=== PATIENT | female | born 1985 | race Caucasian/White ===

== ENCOUNTER 2016-08-14 08:20 | Emergency (ER) | payer BC ==
[2016-08-14 08:49] VITALS: BP 118/74
--- NOTE | 2016-08-14 11:34 | UC ---
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 Hx Last Menstrual Period: 07/28/16 Onset/Duration: Sudden Onset, Lasting Days, Still Present Severity Currently: Severe Severity Initially: Moderate Associated Signs & Symptoms: Positive: Fever, F/C, Myalgia, Cough, Sore Throat Related Hx: Possible Flu/Infectious Exposure - CHILD - Allergy/Home Medications Allergies/Adverse Reactions: Allergies Allergy/AdvReac Type Severity Reaction Status Date / Time Iodinated Contrast Media Allergy Intermediate Difficulty Verified 06/05/16 07:58 [CONTRAST DYE] Breathing Home Medications: Home Medications Acetaminophen TAB* [Tylenol TAB*] 2 tab PO 08/14/16 [History] Dayquil Severe Flu And Cold 08/14/16 [History] PMH/Surg Hx/FS Hx/Imm Hx Previously Healthy: Yes Endocrine History Of: Denies: Diabetes, Thyroid Disease Cardiovascular History Of: Denies: Cardiac Disorders, Hypertension, Pacemaker/ICD, Deep Vein Thrombosis Respiratory History Of: Reports: Bronchitis - HX OF Denies: COPD, Asthma GI/ History Of: Denies: Gastroesophageal Reflux, Renal Disease Neurological History Of: Denies: CVA, Dementia, Seizures Psychological History Of: Reports: Anxiety - CONTROL WITH MEDS, Depression - CONTROL WITH MEDS Cancer History Of: Denies: Breast Cancer Other History Of: Negative For: Anticoagulant Therapy - Surgical History Surgical History: Yes Surgery Procedure, Year, and Place: 2004 & 2005 LEFT KNEE ARTHROSCOPY, [place]. 2009 LAPAROSCOPY APPENDECTOMY, [place]. 2010 DIAGNOSTIC LAPAROSCOPY FOR BILATERAL OVARIAN CYST, [place] X 2. 2011 DIAGNOSTIC LAPAROSCOPY WITH RIGHT SALPINGECTOMY AND OOPHORECTOMY, [place] TUBAL LIGATION - Lt SIDE - Family History Known Family History: Positive: None, Hypertension, Other - sister with migraines - Social History Occupation: Employed Full-time Lives: With Family Alcohol Use: Occasionally Alcohol Amount: 2-3 TIMES PER WEEK Substance Use Type: None Smoking Status (MU): Never Smoked Tobacco - Immunization History Most Recent Influenza Vaccination: FALL 2015 Review of Systems Constitutional: Fever, Chills, Fatigue Skin: Negative Eyes: Negative ENT: Nasal Discharge Respiratory: Cough Cardiovascular: Negative Gastrointestinal: Negative Genitourinary: Negative Motor: Negative Neurovascular: Negative Musculoskeletal: Myalgia Neurological: Negative Psychological: Negative All Other Systems Reviewed And Are Negative: Yes Physical Exam Triage Information Reviewed: Yes Appearance: Well-Appearing, No Pain Distress, Well-Nourished Vital Signs: Initial Vital Signs Temp 97.5 F 08/14/16 08:29 Pulse 114 08/14/16 08:29 Resp 16 08/14/16 08:29 BP 118/74 08/14/16 08:29 Pulse Ox 96 08/14/16 08:29 Vital Signs Reviewed: Yes Eye Exam: Normal Eyes: Positive: Conjunctiva Clear ENT Exam: Normal ENT: Positive: Normal ENT inspection, Hearing grossly normal, Pharynx normal, TMs normal Dental Exam: Normal Neck exam: Normal Neck: Positive: Supple, Nontender, No Lymphadenopathy Respiratory Exam: Normal Respiratory: Positive: Chest non-tender, Lungs clear, Normal breath sounds, No respiratory distress, No accessory muscle use Cardiovascular Exam: Normal Cardiovascular: Positive: RRR, No Murmur, Pulses Normal, Brisk Capillary Refill Abdominal Exam: Normal Musculoskeletal Exam: Normal Musculoskeletal: Positive: Strength Intact, ROM Intact Neurological Exam: Normal Psychological Exam: Normal Psychological: Positive: Normal Response To Family Skin Exam: Normal Flu Course/Dx - Differential Dx/Diagnosis Differential Diagnosis/HQI/PQRI: Influenza, Upper Respiratory Infection Provider Diagnoses: INFLUENZA A Discharge - Discharge Plan Condition: Stable Disposition: HOME Prescriptions: Oseltamivir CAP* [Tamiflu CAP*] 75 mg PO BID #10 cap Patient Education Materials: Influenza (ED) Forms: *Work Release Referrals: Neema Whitt NP [Primary Care Provider] -
== END 2016-08-14 12:05 | disposition home or self-care (01) ==
LOC: UCEAST 08:20
DX: J09.X2 Influenza due to identified novel influenza A virus with other respiratory manifestations (principal); F41.9 Anxiety disorder, unspecified; F33.8 Other recurrent depressive disorders; Z91.041 Radiographic dye allergy status
CPT/HCPCS: 87502; 99212; G0463

== ENCOUNTER 2017-01-18 13:50 | Emergency (ER) | payer BC ==
[2017-01-18] MEDS ORDERED: HYDROmorphone* 1 MG/ML 1 ML SYR IV ONE ×2 (14:25→16:45)
[2017-01-18] MEDS ORDERED: NS 0.9% 1000 ML* 1,000 ML IV ONE (14:25)
[2017-01-18] MEDS ORDERED: Ondansetron INJ* 2 MG/ML VIAL IV ONE (14:25)
[2017-01-18 15:13] LABS: Add Diff/Slide Review? Slide Review Added; Comments Flag Yes; Hematocrit 43 % (35-47); Hemoglobin 14.3 g/dl (12.0-16.0); Mean Corpuscular HGB Conc 33 g/dl (31-36); Mean Corpuscular Hemoglobin 30 pg (27-31); Mean Corpuscular Volume 91 fL (80-97); Mean Platelet Volume 9 um3 (7.4-10.4); Red Blood Count 4.73 10^6/ul (4.0-5.4); Red Cell Distribution Width 14 % (10.5-15); White Blood Count 8.1 10^3/ul (3.5-10.8)
[2017-01-18 15:27] LABS: Albumin 4.2 g/dL (3.2-5.2); BUN/Creatinine Ratio 9.4 (8-20); C Reactive Protein 15.88 mg/L (< 5.00); Calcium 9.3 mg/dL (8.6-10.3); EGFR African American 140.1 (>60); Globulin 3.2 g/dL (2-4); Potassium 3.5 mmol/L (3.5-5.0); Total Bilirubin 0.4 mg/dL (0.2-1.0); Total Protein 7.4 g/dL (6.4-8.9)
--- NOTE | 2017-01-18 17:31 | RAD ---
INDICATION: Adnexal pelvic pain. COMPARISON: Comparison is made with a prior pelvic ultrasound from June 20, 2015. TECHNIQUE: Multiple real-time transabdominal images of the pelvis were obtained. FINDINGS: The uterus is normal in size, shape and echogenicity. The uterus measured 7.7 x 3.3 x 4.8 cm. The endometrial echo measured 0.7 cm in thickness. The patient is status post right oophorectomy. The left ovary measured 4.1 x 2.3 x 3.8 cm. There is vascular flow within the left ovary. There are couple small follicular cysts. No free intraperitoneal fluid is seen. IMPRESSION: STATUS POST RIGHT OOPHORECTOMY, OTHERWISE UNREMARKABLE STUDY.
[2017-01-18 18:44] LABS: Urine Bacteria 1+ (Absent); Urine Bilirubin Negative (Negative); Urine Glucose Negative (Negative); Urine Nitrite Negative (Negative)
[2017-01-18 19:39] VITALS: BP 122/81
[2017-01-18] MEDS ORDERED: oxyCODONE/Acetamin 5/325 MG* TAB PO ONE (19:58)
[2017-01-18] MEDS ORDERED: oxyCODONE/Acetamin 5/325 MG* TAB ONE (20:01)
--- NOTE | 2017-01-20 14:31 | ED ---
Mo Beavers Alok, scribed for Martinez Sanchez MD on 01/18/17 at 1428 . Abdominal Pain/Female - HPI Summary HPI Summary: 32F presents to the ED for lower abd pain since 3 days ago. The patient states that what initially began as back pain transitioned into the lower abd and has progressively worsening since. Pt describes her pain "like contractions" and state they worsen with movement. Pt also notes N/V. PMHx includes sciatica. PSHx includes tubal litigation and right sided salpingo-oophorectomy. Pt is allergic to Iodine Contrast. - History of Current Complaint Chief Complaint: EDAbdPain Stated Complaint: LOWER ABD PAIN/N/V-SENT BY 5 STAR Time Seen by Provider: 01/18/17 14:10 Hx Obtained From: Patient Hx Last Menstrual Period: 07/28/16 ?: No Onset/Duration: Lasting Days, Still Present Timing: Constant Severity Initially: Moderate Severity Currently: Moderate Pain Intensity: 6 Pain Scale Used: 0-10 Numeric Location: Discrete At: RLQ, Discrete At: LLQ Character: Cramping Aggravating Factor(s): Movement Alleviating Factor(s): Nothing Associated Signs and Symptoms: Positive: Nausea, Vomiting Allergies/Adverse Reactions: Allergies Allergy/AdvReac Type Severity Reaction Status Date / Time Iodinated Contrast Media Allergy Intermediate Difficulty Verified 06/05/16 07:58 [CONTRAST DYE] Breathing PMH/Surg Hx/FS Hx/Imm Hx Endocrine/Hematology History: Denies: Hx Anticoagulant Therapy, Hx Diabetes, Hx Thyroid Disease Comment Only: Other Endocrine/Hematological Disorders - endometriosis Cardiovascular History: Denies: Hx Atrial Fibrillation, Hx Congenital Heart Disease, Hx Deep Vein Thrombosis, Hx Hypertension, Hx Pacemaker/ICD Respiratory History: Denies: Hx Asthma, Hx Chronic Obstructive Pulmonary Disease (COPD) GI History: Comment Only: Other GI Disorders - colitis History: Denies: Hx Renal Disease Musculoskeletal History: Reports: Hx Back Problems - back to left leg with spasms Sensory History: Reports: Hx Contacts or Glasses - CONTACTS, INSTRUCTED TO WEAR GLASSES DAY OF SURGERY Denies: Hx Hearing Aid Opthamlomology History: Reports: Hx Contacts or Glasses - CONTACTS, INSTRUCTED TO WEAR GLASSES DAY OF SURGERY Neurological History: Denies: Hx Dementia, Hx Seizures Psychiatric History: Reports: Hx Anxiety - CONTROL WITH MEDS, Hx Depression - CONTROL WITH MEDS Denies: Hx Panic Disorder, Hx Substance Abuse - Cancer History Hx Chemotherapy: No Hx Radiation Therapy: No - Surgical History Surgery Procedure, Year, and Place: 2004 & 2006 LEFT KNEE ARTHROSCOPY, [facility] [place]. 2009 LAPAROSCOPY APPENDECTOMY, [facility] [place]. 2010 DIAGNOSTIC LAPAROSCOPY FOR BILATERAL OVARIAN CYST, [facility] [place] X 2. 2011 DIAGNOSTIC LAPAROSCOPY WITH RIGHT SALPINGECTOMY AND OOPHORECTOMY, [place] TUBAL LIGATION - Lt SIDE Hx Anesthesia Reactions: Yes - HARD TIME GOING UNDER - Immunization History Date of Tetanus Vaccine: unsure Date of Influenza Vaccine: Fall 2013 Infectious Disease History: Reports: Hx of Known/Suspected MRSA - surgical wounds Denies: Hx Clostridium Difficile, Hx Hepatitis, Hx Human Immunodeficiency Virus (HIV), Hx Shingles, Hx Tuberculosis, Hx Known/Suspected VRE, Hx Known/ Suspected VRSA, History Other Infectious Disease, Traveled Outside the in Last 30 Days - Family History Known Family History: Positive: Hypertension, Other - sister with migraines - Social History Occupation: Employed Full-time Alcohol Use: Occasionally Alcohol Amount: 2-3 TIMES PER WEEK Substance Use Type: Reports: None Smoking Status (MU): Never Smoked Tobacco Review of Systems Negative: Fever Positive: Abdominal Pain, Vomiting, Nausea All Other Systems Reviewed And Are Negative: Yes Physical Exam Triage Information Reviewed: Yes Vital Signs On Initial Exam: Initial Vitals Temp Pulse Resp BP Pulse Ox 97.3 F 117 24 153/97 99 01/18/17 13:51 01/18/17 13:51 01/18/17 13:51 01/18/17 13:51 01/18/17 13:51 Vital Signs Reviewed: Yes Appearance: Positive: Well-Appearing, No Pain Distress Skin: Positive: Warm, Skin Color Reflects Adequate Perfusion, Dry Head/Face: Positive: Normal Head/Face Inspection Eyes: Positive: Normal ENT: Positive: Normal ENT inspection Neck: Positive: Supple, Nontender Respiratory/Lung Sounds: Positive: Clear to Auscultation, Breath Sounds Present Cardiovascular: Positive: RRR Abdomen Description: Positive: Soft, Other: - Bilateral lower quadrant tenderness Bowel Sounds: Positive: Present Musculoskeletal: Positive: Normal Neurological: Positive: Normal Psychiatric: Positive: Normal, Affect/Mood Appropriate Diagnostics - Vital Signs Vital Signs Temp Pulse Resp BP Pulse Ox 01/18/17 13:51 97.3 F 117 24 153/97 99 - Laboratory Lab Results: Lab Results 01/18/17 01/18/17 01/18/17 Range/Units 14:52 14:52 14:52 WBC 8.1 (3.5-10.8) 10^3/ul RBC 4.73 (4.0-5.4) 10^6/ul Hgb 14.3 (12.0-16.0) g/dl Hct 43 (35-47) % MCV 91 (80-97) fL MCH 30 (27-31) pg MCHC 33 (31-36) g/dl RDW 14 (10.5-15) % Plt Count 301 (150-450) 10^3/ul MPV 9 (7.4-10.4) um3 Neut % (Auto) 83.1 H (38-83) % Lymph % (Auto) 10.7 L (25-47) % Hart % (Auto) 3.4 (1-9) % Eos % (Auto) 0.5 (0-6) % Baso % (Auto) 2.3 H (0-2) % Absolute Neuts (auto) 6.7 (1.5-7.7) 10^3/ul Absolute Lymphs (auto) 0.9 L (1.0-4.8) 10^3/ul Absolute Monos (auto) 0.3 (0-0.8) 10^3/ul Absolute Eos (auto) 0 (0-0.6) 10^3/ul Absolute Basos (auto) 0.2 (0-0.2) 10^3/ul Absolute Nucleated RBC 0.02 10^3/ul Nucleated RBC % 0.2 Sodium 138 (133-145) mmol/L Potassium 3.5 (3.5-5.0) mmol/L Chloride 105 (101-111) mmol/L Carbon Dioxide 23 (22-32) mmol/L Anion Gap 10 (2-11) mmol/L BUN 6 (6-24) mg/dL Creatinine 0.64 (0.51-0.95) mg/dL Est GFR ( Amer) 140.1 (>60) Est GFR (Non-Af Amer) 109.0 (>60) BUN/Creatinine Ratio 9.4 (8-20) Glucose 82 (70-100) mg/dL Lactic Acid 0.8 (0.5-2.0) mmol/L Calcium 9.3 (8.6-10.3) mg/dL Total Bilirubin 0.40 (0.2-1.0) mg/dL AST 15 (13-39) U/L ALT 19 (7-52) U/L Alkaline Phosphatase 71 (34-104) U/L C-Reactive Protein 15.88 H (< 5.00) mg/L Total Protein 7.4 (6.4-8.9) g/dL Albumin 4.2 (3.2-5.2) g/dL Globulin 3.2 (2-4) g/dL Albumin/Globulin Ratio 1.3 (1-3) Lipase 46 (11.0-82.0) U/L Beta HCG, Quant 0.82 mIU/mL Urine Color Urine Appearance Urine pH (5-9) Ur Specific [place] (1.010-1.030) Urine Protein (Negative) Urine Ketones (Negative) Urine Blood (Negative) Urine Nitrate (Negative) Urine Bilirubin (Negative) Urine Urobilinogen (Negative) Ur Leukocyte Esterase (Negative) Urine WBC (Auto) (Absent) Urine RBC (Auto) (Absent) Ur Squamous Epith Cells (Absent) Urine Bacteria (Absent) Urine Glucose (Negative) Urine Ascorbic Acid (Negative) 01/18/17 Range/Units 18:30 WBC (3.5-10.8) 10^3/ul RBC (4.0-5.4) 10^6/ul Hgb (12.0-16.0) g/dl Hct (35-47) % MCV (80-97) fL MCH (27-31) pg MCHC (31-36) g/dl RDW (10.5-15) % Plt Count (150-450) 10^3/ul MPV (7.4-10.4) um3 Neut % (Auto) (38-83) % Lymph % (Auto) (25-47) % Hart % (Auto) (1-9) % Eos % (Auto) (0-6) % Baso % (Auto) (0-2) % Absolute Neuts (auto) (1.5-7.7) 10^3/ul Absolute Lymphs (auto) (1.0-4.8) 10^3/ul Absolute Monos (auto) (0-0.8) 10^3/ul Absolute Eos (auto) (0-0.6) 10^3/ul Absolute Basos (auto) (0-0.2) 10^3/ul Absolute Nucleated RBC 10^3/ul Nucleated RBC % Sodium (133-145) mmol/L Potassium (3.5-5.0) mmol/L Chloride (101-111) mmol/L Carbon Dioxide (22-32) mmol/L Anion Gap (2-11) mmol/L BUN (6-24) mg/dL Creatinine (0.51-0.95) mg/dL Est GFR ( Amer) (>60) Est GFR (Non-Af Amer) (>60) BUN/Creatinine Ratio (8-20) Glucose (70-100) mg/dL Lactic Acid (0.5-2.0) mmol/L Calcium (8.6-10.3) mg/dL Total Bilirubin (0.2-1.0) mg/dL AST (13-39) U/L ALT (7-52) U/L Alkaline Phosphatase (34-104) U/L C-Reactive Protein (< 5.00) mg/L Total Protein (6.4-8.9) g/dL Albumin (3.2-5.2) g/dL Globulin (2-4) g/dL Albumin/Globulin Ratio (1-3) Lipase (11.0-82.0) U/L Beta HCG, Quant mIU/mL Urine Color Yellow Urine Appearance Clear Urine pH 6.0 (5-9) Ur Specific [place] 1.012 (1.010-1.030) Urine Protein Negative (Negative) Urine Ketones 1+ H (Negative) Urine Blood Negative (Negative) Urine Nitrate Negative (Negative) Urine Bilirubin Negative (Negative) Urine Urobilinogen Negative (Negative) Ur Leukocyte Esterase 1+ H (Negative) Urine WBC (Auto) Trace(0-5/hpf) (Absent) Urine RBC (Auto) Trace(0-2/hpf) (Absent) Ur Squamous Epith Cells Present H (Absent) Urine Bacteria 1+ H (Absent) Urine Glucose Negative (Negative) Urine Ascorbic Acid * H (Negative) Result Diagrams: 01/18/17 14:52 01/18/17 14:52 Lab Statement: Any lab studies that have been ordered have been reviewed, and results considered in the medical decision making process. - Additional Comments Diagnostic Additional Comments: Pelvis US - IMPRESSION: STATUS POST RIGHT OOPHORECTOMY, OTHERWISE UNREMARKABLE STUDY. Abdominal Pain Fem Course/Dx - Course Course Of Treatment: Ms. Eugene has had 3 days of low abdominal pain that started as left low back pain and migrated to the left and somewhat to the right adnexae. He CRP was very mildly bumped and she had a normal CBC. U/S was unremarkable except for the remote right oophorectomy. The etiology of her pain is still uncertain. We discussed the possibility of CT but at this point she will go home for expectant management. - Diagnoses Provider Diagnoses: Abdominal pain Discharge - Discharge Plan Condition: Stable Disposition: HOME Prescriptions: oxyCODONE/Acetamin 5/325 MG* [Percocet 5/325 TAB*] 1 tab PO Q6H PRN #20 tab MDD 4 PRN Reason: Pain Patient Education Materials: Abdominal Pain (ED) Referrals: Neema Whitt NP [Primary Care Provider] - Additional Instructions: Please follow up with your primary care provider The documentation as recorded by the Mo mak Alok accurately reflects the service I personally performed and the decisions made by me, Martinez Sanchez MD.
== END 2017-01-18 19:39 | disposition home or self-care (01) ==
LOC: ED 13:50
DX: R10.9 Unspecified abdominal pain (principal); R11.2 Nausea with vomiting, unspecified
CPT/HCPCS: 36415; 76856; 80053; 81003; 81015; 83605; 83690; 84702; 85025; 86140; 87086; 96374; 96375; 99283; A9270-GY; J1170; J2405

== ENCOUNTER 2017-04-22 17:11 | Emergency (ER) | payer BC ==
[2017-04-22 17:23] VITALS: BP 110/84
--- NOTE | 2017-04-22 17:31 | UC ---
Cardiac HPI - HPI Summary HPI Summary: 32 YEAR OLD FEMALE PRESENTS WITH COMPLAINS OF SEVERE HEADACHE AND HEART PALPITATIONS AFTER TAKING SC IGG. I WILL SEND HER TO THE ER. - History of Current Complaint Chief Complaint: UCHeadache Stated Complaint: HEADACHE Time Seen by Provider: 04/22/17 17:31 Hx Obtained From: Patient Hx Last Menstrual Period: 04/05/17 Onset/Duration: Sudden Onset Initial Severity: Moderate Current Severity: Moderate - Allergy/Home Medications Allergies/Adverse Reactions: Allergies Allergy/AdvReac Type Severity Reaction Status Date / Time Iodinated Contrast Media Allergy Intermediate Difficulty Verified 04/22/17 17:23 [CONTRAST DYE] Breathing PMH/Surg Hx/FS Hx/Imm Hx Previously Healthy: Yes Other History Of: Negative For: Anticoagulant Therapy - Surgical History Surgical History: Yes Surgery Procedure, Year, and Place: 2004 & 2005 LEFT KNEE ARTHROSCOPY, [facility] [place]. 2008 LAPAROSCOPY APPENDECTOMY, [facility] [place] 2009 DIAGNOSTIC LAPAROSCOPY FOR BILATERAL OVARIAN CYST, [facility] [place] X 2. 2010 DIAGNOSTIC LAPAROSCOPY WITH RIGHT SALPINGECTOMY AND OOPHORECTOMY, [place] TUBAL LIGATION - Lt SIDE - Family History Known Family History: Positive: None, Hypertension, Other - sister with migraines - Social History Alcohol Use: Occasionally Alcohol Amount: 2-3 TIMES PER WEEK Substance Use Type: None Smoking Status (MU): Never Smoked Tobacco - Immunization History Most Recent Influenza Vaccination: FALL 2015 Review of Systems Constitutional: Negative Skin: Negative Eyes: Negative ENT: Negative Respiratory: Negative Cardiovascular: Palpitations Gastrointestinal: Negative Genitourinary: Negative Motor: Negative Neurovascular: Negative Musculoskeletal: Negative Neurological: Headache Psychological: Negative All Other Systems Reviewed And Are Negative: Yes Physical Exam Triage Information Reviewed: Yes Vital Signs: Initial Vital Signs Temp 36.4 C 04/22/17 17:17 Pulse 106 04/22/17 17:17 Resp 16 04/22/17 17:17 BP 110/84 04/22/17 17:17 Pulse Ox 100 04/22/17 17:17 Eye Exam: Normal ENT Exam: Normal Dental Exam: Normal Neck exam: Normal Neck: Positive: 1 Respiratory Exam: Normal Cardiovascular: Positive: Tachycardia Abdominal Exam: Normal Musculoskeletal Exam: Normal Neurological Exam: Normal Psychological Exam: Normal Skin Exam: Normal - Clinical Impression Provider Diagnoses: HEART PALPITATIONS Discharge - Discharge Plan Condition: Stable Disposition: HOME Patient Education Materials: Palpitations (ED) Referrals: Neema Whitt NP [Primary Care Provider] - Additional Instructions: PATIENT SUGGESTED TO GO TO ER FOR HEART PALPITATIONS.
== END 2017-04-22 17:57 | disposition home or self-care (01) ==
LOC: UCEAST 17:11
DX: R00.2 Palpitations (principal); R51 Headache; Z91.041 Radiographic dye allergy status
CPT/HCPCS: 93005; 99211; G0463

== ENCOUNTER 2017-04-22 18:32 | Emergency (ER) | payer BC ==
[2017-04-22] MEDS ORDERED: Ondansetron INJ* 2 MG/ML VIAL IV ONE (21:08)
[2017-04-22] MEDS ORDERED: NS 0.9% 1000 ML* 2,000 ML IV ONE (21:13)
[2017-04-22] MEDS ORDERED: Ketorolac INJ* 30 MG/ML 1 ML VIAL IV ONE (21:31)
[2017-04-22] MEDS ORDERED: diPHENhydraMINE IV* 50 MG/ML 1 ml VIAL (BENADRYL) IV ONE (21:31)
[2017-04-22 22:44] LABS: Hematocrit 38 % (35-47); Hemoglobin 12.9 g/dl (12.0-16.0); Mean Corpuscular HGB Conc 34 g/dl (31-36); Mean Corpuscular Hemoglobin 31 pg (27-31); Mean Corpuscular Volume 90 fL (80-97); Mean Platelet Volume 9 um3 (7.4-10.4); Red Blood Count 4.22 10^6/ul (4.0-5.4); Red Cell Distribution Width 15 % (10.5-15); White Blood Count 6.9 10^3/ul (3.5-10.8)
[2017-04-22 22:56] LABS: Albumin 3.6 g/dL (3.2-5.2); BUN/Creatinine Ratio 6.3 (8-20); Calcium 8.3 mg/dL (8.6-10.3); EGFR African American 140.1 (>60); Globulin 3.1 g/dL (2-4); Potassium 3.7 mmol/L (3.5-5.0); Total Bilirubin 0.4 mg/dL (0.2-1.0); Total Protein 6.7 g/dL (6.4-8.9)
[2017-04-22 23:15] LABS: TSH (Thyroid Stimulating Horm) 3.49 mcIU/mL (0.34-5.60)
--- NOTE | 2017-04-22 23:18 | ED ---
Estefany Beavers Alfonso, scribed for Mabel Meade MD on 04/22/17 at 2054 . Complex/Multi-Sys Presentation - HPI Summary HPI Summary: This patient is a 32 year old F presenting to [facility] with a chief complaint of a migraine since 3 days ago. The patient rates the pain 8/10 in severity. Symptoms aggravated by bright lights. Symptoms alleviated by nothing. Patient reports diaphoresis, N/V, dry heaving, and palpitations. Patient denies diarrhea. She lives with her . 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 Her last infusion was 6 days ago. - History Of Current Complaint Chief Complaint: EDGeneral Time Seen by Provider: 04/22/17 20:47 Hx Obtained From: Patient Onset/Duration: Sudden Onset, Lasting Days - 3 Timing: Constant Severity Currently: Severe - 8/10 Aggravating Factor(s): nothing Alleviating Factor(s): nothing Associated Signs And Symptoms: Positive: Other - diaphoresis, N/V, dry heaving, and palpitations. Patient denies diarrhea - Allergies/Home Medications Allergies/Adverse Reactions: Allergies Allergy/AdvReac Type Severity Reaction Status Date / Time Iodinated Contrast Media Allergy Intermediate Difficulty Verified 04/22/17 17:23 [CONTRAST DYE] Breathing PMH/Surg Hx/FS Hx/Imm Hx Endocrine/Hematology History: Reports: Other Endocrine/Hematological Disorders - CVID Denies: Hx Anticoagulant Therapy, Hx Diabetes, Hx Thyroid Disease Cardiovascular History: Denies: Hx Atrial Fibrillation, Hx Congenital Heart Disease, Hx Deep Vein Thrombosis, Hx Hypertension, Hx Pacemaker/ICD Respiratory History: Denies: Hx Asthma, Hx Chronic Obstructive Pulmonary Disease (COPD) GI History: Comment Only: Other GI Disorders - colitis History: Denies: Hx Renal Disease Musculoskeletal History: Reports: Hx Back Problems - back to left leg with spasms Sensory History: Reports: Hx Contacts or Glasses - CONTACTS, INSTRUCTED TO WEAR GLASSES DAY OF SURGERY Denies: Hx Hearing Aid Opthamlomology History: Reports: Hx Contacts or Glasses - CONTACTS, INSTRUCTED TO WEAR GLASSES DAY OF SURGERY Neurological History: Denies: Hx Dementia, Hx Seizures Psychiatric History: Reports: Hx Anxiety - CONTROL WITH MEDS, Hx Depression - CONTROL WITH MEDS Denies: Hx Panic Disorder, Hx Substance Abuse - Cancer History Hx Chemotherapy: No Hx Radiation Therapy: No - Surgical History Surgery Procedure, Year, and Place: 2005 & 2006 [place] KN[place] [facility] [place] LAP[place]OSCOPY APPEN[place]OMY, [facility] [place]. 2010 DIAGNOSTIC LAPAROSCOPY FOR BILATERAL OVARIAN CYST, [facility] [place]. 2011 DIAGNOSTIC LAPAROSCOPY WITH RIGHT SALPINGECTOMY AND OOPHORECTOMY, [facility]. TUBAL LIGATION - Lt SIDE Hx Anesthesia Reactions: Yes - HARD TIME GOING UNDER - Immunization History Date of Tetanus Vaccine: unsure Date of Influenza Vaccine: Fall 2013 Infectious Disease History: No Infectious Disease History: Reports: Hx of Known/Suspected MRSA - surgical wounds Denies: Hx Clostridium Difficile, Hx Hepatitis, Hx Human Immunodeficiency Virus (HIV), Hx Shingles, Hx Tuberculosis, Hx Known/Suspected VRE, Hx Known/ Suspected VRSA, History Other Infectious Disease, Traveled Outside the [place] in Last 30 Days - Family History Known Family History: Positive: Hypertension, Other - sister with migraines - Social History Alcohol Use: Weekly Alcohol Amount: 2-3 TIMES PER WEEK Substance Use Type: Reports: None Smoking Status (MU): Never Smoked Tobacco Review of Systems Positive: Skin Diaphoresis Positive: Palpitations Positive: Vomiting, Nausea, Other - dry heaving. Negative: Diarrhea Positive: Headache - migraine All Other Systems Reviewed And Are Negative: Yes Physical Exam - Summary Physical Exam Summary: General: Well appearing, no pain distress, uncomfortable. Skin: Warm, Skin Color Reflects Adequate Perfusion, Dry Eyes: EOMI, JHON ENT: Pharynx normal, TMs normal, dry oral mucosa. Neck: Supple, nontender Respiratory: CTA, breath sounds present, no rhonchi, no wheezes, no rales Cardiovascular: RRR, no murmur, no rub, no gallop Abdomen: Soft, nontender, non-distented, no guarding, no rebound Bowel: Present Musculoskeletal: DARÍO, No edema Neuro: Sensory/motor intact, A&Ox3, CN intact 2-12 Psych: Affect/mood appropriate Triage Information Reviewed: Yes Vital Signs On Initial Exam: Initial Vitals Temp Pulse Resp BP Pulse Ox 97.3 F 102 20 123/87 99 04/22/17 18:35 04/22/17 18:35 04/22/17 18:35 04/22/17 18:35 04/22/17 18:35 Vital Signs Reviewed: Yes - [place] Coma Scale Coma Scale Total: 14 Diagnostics - Vital Signs Vital Signs Temp Pulse Resp BP Pulse Ox 04/22/17 20:19 85 18 100 04/22/17 20:16 116/82 04/22/17 18:35 97.3 F 102 20 123/87 99 - Laboratory Lab Results: Lab Results 04/22/17 04/22/17 04/22/17 Range/Units 22:00 22:00 22:00 WBC 6.9 (3.5-10.8) 10^3/ul RBC 4.22 (4.0-5.4) 10^6/ul Hgb 12.9 (12.0-16.0) g/dl Hct 38 (35-47) % MCV 90 (80-97) fL MCH 31 (27-31) pg MCHC 34 (31-36) g/dl RDW 15 (10.5-15) % Plt Count 250 (150-450) 10^3/ul MPV 9 (7.4-10.4) um3 Neut % (Auto) 71.8 (38-83) % Lymph % (Auto) 20.0 L (25-47) % [place] % (Auto) 6.7 (1-9) % Eos % (Auto) 0.6 (0-6) % Baso % (Auto) 0.9 (0-2) % Absolute Neuts (auto) 5.0 (1.5-7.7) 10^3/ul Absolute Lymphs (auto) 1.4 (1.0-4.8) 10^3/ul Absolute Monos (auto) 0.5 (0-0.8) 10^3/ul Absolute Eos (auto) 0 (0-0.6) 10^3/ul Absolute Basos (auto) 0.1 (0-0.2) 10^3/ul Absolute Nucleated RBC 0.01 10^3/ul Nucleated RBC % 0.1 Sodium 138 (133-145) mmol/L Potassium 3.7 (3.5-5.0) mmol/L Chloride 106 (101-111) mmol/L Carbon Dioxide 27 (22-32) mmol/L Anion Gap 5 (2-11) mmol/L BUN 4 L (6-24) mg/dL Creatinine 0.64 (0.51-0.95) mg/dL Est GFR ( Amer) 140.1 (>60) Est GFR (Non-Af Amer) 109.0 (>60) BUN/Creatinine Ratio 6.3 L (8-20) Glucose 82 (70-100) mg/dL Lactic Acid 0.7 (0.5-2.0) mmol/L Calcium 8.3 L (8.6-10.3) mg/dL Magnesium 2.0 (1.9-2.7) mg/dL Total Bilirubin 0.40 (0.2-1.0) mg/dL AST 13 (13-39) U/L ALT 23 (7-52) U/L Alkaline Phosphatase 54 (34-104) U/L Total Protein 6.7 (6.4-8.9) g/dL Albumin 3.6 (3.2-5.2) g/dL Globulin 3.1 (2-4) g/dL Albumin/Globulin Ratio 1.2 (1-3) TSH 3.49 (0.34-5.60) mcIU/mL Result Diagrams: 04/22/17 22:00 04/22/17 22:00 Lab Statement: Any lab studies that have been ordered have been reviewed, and results considered in the medical decision making process. - EKG 1838 Cardiac Rate: NL - BPM 85 EKG Rhythm: Sinus Rhythm EKG Interpretation: No Q waves. No ST elevation. Re-Evaluation - Re-Evaluation First Eval Re-Evaluation Time: 23:17 Change: Improved Comment: She reports feeling much better. Complex Multi-Symp Course/Dx Course Of Treatment: pt feels much better after rehydration and meds for migraine, electrolytes and ekg normal she is ok to go home - Diagnoses Provider Diagnoses: Migraine, Palpitations Discharge - Discharge Plan Condition: Stable Disposition: HOME The documentation as recorded by the Estefany mak Alfonso accurately reflects the service I personally performed and the decisions made by me, Mabel Meade MD.
[2017-04-23 00:15] VITALS: BP 104/72
== END 2017-04-23 00:15 | disposition home or self-care (01) ==
LOC: ED 18:32
DX: G43.909 Migraine, unspecified, not intractable, without status migrainosus (principal); R00.2 Palpitations; R11.2 Nausea with vomiting, unspecified; R61 Generalized hyperhidrosis; R51 Headache
CPT/HCPCS: 36415; 80053; 83605; 83735; 84443; 85025; 93005; 96374; 96375; 99283; J1200; J1885; J2405

== ENCOUNTER 2017-06-29 15:46 | Emergency (ER) | payer BC ==
[2017-06-29] MEDS ORDERED: Metoclopramide IV* 5 MG/ML 2 ML VIAL IV SLOW PU ONE (16:22)
[2017-06-29] MEDS ORDERED: Morphine INJ* 4 MG/ML 1 ML CARPUJECT IV ONE (16:22)
[2017-06-29 17:07] LABS: ABS Basophils 0.1 10^3/ul (0-0.2); ABS Eosinophils 0.1 10^3/ul (0-0.6); ABS Lymphocytes 1.7 10^3/ul (1.0-4.8); ABS Monocytes 0.4 10^3/ul (0-0.8); ABS Neutrophils 6.4 10^3/ul (1.5-7.7); ABS Nucleated RBC 0 10^3/ul; Eosinophil % 1.1 % (0-6); Hematocrit 40 % (35-47); Hemoglobin 13.9 g/dl (12.0-16.0); Lymphocyte % 20.1 % (25-47); Mean Corpuscular HGB Conc 34 g/dl (31-36); Mean Corpuscular Hemoglobin 31 pg (27-31); Mean Corpuscular Volume 90 fL (80-97); Mean Platelet Volume 9 um3 (7.4-10.4); Nucleated Red Blood Cells % 0; Platelet Count 285 10^3/ul (150-450); Red Blood Count 4.47 10^6/ul (4.0-5.4); Red Cell Distribution Width 14 % (10.5-15); White Blood Count 8.7 10^3/ul (3.5-10.8)
[2017-06-29 17:22] LABS: EGFR Non-African American 117.4 (>60)
[2017-06-29] MEDS: NS 0.9% 1000 ML* 1,000 ML IV ONE (17:31)
[2017-06-29] MEDS ORDERED: Potassium Chlor TAB* 20 MEQ TAB.ER PO ONE (17:34)
[2017-06-29] MEDS ORDERED: oxyCODONE/Acetamin 5/325 MG* TAB PO ONE (17:40)
[2017-06-29 18:20] VITALS: BP 122/80
--- NOTE | 2017-08-09 20:42 | ED ---
Devora Beavers Thomas, scribed for Vivi Turner MD on 06/29/17 at 1639 . Throat Pain/Nasal Congestion - HPI Summary HPI Summary: The patient is a 32 y/o female presenting to the ED complaining of right-sided facial pain and swelling that has been present for the last three days status post a parotid dilation that was performed by Dr. Rosenbaum three days ago. The pain is constant and is rated 6/10. The pain radiates down to her throat. The pain is aggravated by touch and is alleviated by nothing. The patient has treated the pain with acetaminophen prior to arrival. She has been eating sour candy and taking mouthwashes as directed. The patient has been on prednisone and clindamycin since the dilation. PMHx includes common variable immune deficiency. - History of Current Complaint Chief Complaint: EDGeneral Time Seen by Provider: 06/29/17 15:55 Hx Obtained From: Patient Onset/Duration: Lasting Days - 3, Still Present Severity: Moderate Associated Signs And Symptoms: Positive: Negative - negative for fever Cough: None Related History: Other (Noted In Comments) - Procedure three days ago with Dr. Rosenbaum - Allergies/Home Medications Allergies/Adverse Reactions: Allergies Allergy/AdvReac Type Severity Reaction Status Date / Time Iodinated Contrast Media Allergy Intermediate Difficulty Verified 04/22/17 17:23 [CONTRAST DYE] Breathing PMH/Surg Hx/FS Hx/Imm Hx Previously Healthy: No Endocrine/Hematology History: Reports: Other Endocrine/Hematological Disorders - CVID Denies: Hx Anticoagulant Therapy, Hx Diabetes, Hx Thyroid Disease Cardiovascular History: Denies: Hx Atrial Fibrillation, Hx Congenital Heart Disease, Hx Deep Vein Thrombosis, Hx Hypertension, Hx Pacemaker/ICD Respiratory History: Denies: Hx Asthma, Hx Chronic Obstructive Pulmonary Disease (COPD) GI History: Comment Only: Other GI Disorders - colitis History: Denies: Hx Renal Disease Musculoskeletal History: Reports: Hx Back Problems - back to left leg with spasms Sensory History: Reports: Hx Contacts or Glasses - CONTACTS, INSTRUCTED TO WEAR GLASSES DAY OF SURGERY Denies: Hx Hearing Aid Opthamlomology History: Reports: Hx Contacts or Glasses - CONTACTS, INSTRUCTED TO WEAR GLASSES DAY OF SURGERY Neurological History: Denies: Hx Dementia, Hx Seizures Psychiatric History: Reports: Hx Anxiety - CONTROL WITH MEDS, Hx Depression - CONTROL WITH MEDS Denies: Hx Panic Disorder, Hx Substance Abuse - Cancer History Hx Chemotherapy: No Hx Radiation Therapy: No - Surgical History Surgery Procedure, Year, and Place: 2005 & 2006 LEFT KN[place]COPY, [facility] [place]. [place] LAPAROSCOPY APPENDECTOMY, [facility] [place]. 2010 DIAGNOSTIC LAPAROSCOPY FOR BILATERAL OVARIAN CYST, [facility] [place]. 2011 DIAGNOSTIC LAPAROSCOPY WITH RIGHT SALPINGECTOMY AND OOPHORECTOMY, [facility]. TUBAL LIGATION - Lt SIDE Hx Anesthesia Reactions: Yes - HARD TIME GOING UNDER - Immunization History Date of Tetanus Vaccine: unsure Date of Influenza Vaccine: Fall 2013 Infectious Disease History: No Infectious Disease History: Reports: Hx of Known/Suspected MRSA - surgical wounds Denies: Hx Clostridium Difficile, Hx Hepatitis, Hx Human Immunodeficiency Virus (HIV), Hx Shingles, Hx Tuberculosis, Hx Known/Suspected VRE, Hx Known/ Suspected VRSA, History Other Infectious Disease, Traveled Outside the [place] in Last 30 Days - Family History Known Family History: Positive: Hypertension, Other - sister with migraines - Social History Alcohol Use: Weekly Alcohol Amount: 2-3 TIMES PER WEEK Substance Use Type: Reports: None Smoking Status (MU): Never Smoked Tobacco Review of Systems Negative: Fever Positive: Other - R-sided facial pain and swelling All Other Systems Reviewed And Are Negative: Yes Physical Exam - Summary Physical Exam Summary: VITAL SIGNS: Reviewed. He is tachycardic. GENERAL: Patient is a well-developed and nourished female who is lying comfortable in the stretcher. Patient is not in any acute respiratory distress. HEAD AND FACE: His face is flushed. There is mild swelling and tenderness to the left parotid. No signs of trauma. No ecchymosis, hematomas or skull depressions. EYES: PERRLA, EOMI x 2, No injected conjunctiva, no nystagmus. EARS: Hearing grossly intact. Ear canals and tympanic membranes are within normal limits. MOUTH: Oropharynx within normal limits. NECK: Supple, trachea is midline, no adenopathy, no JVD, no carotid bruit, no c- spine tenderness, neck with full ROM. CHEST: Symmetric, no tenderness at palpation LUNGS: Clear to auscultation bilaterally. No wheezing or crackles. CVS: Regular rate and rhythm, S1 and S2 present, no murmurs or gallops appreciated. ABDOMEN: Soft, non-tender. No signs of distention. No rebound no guarding, and no masses palpated. Bowel sounds are normal. EXTREMITIES: FROM in all major joints, no edema, no cyanosis or clubbing. NEURO: Alert and oriented x 3. No acute neurological deficits. Speech is normal and follows commands. SKIN: Dry and warm Triage Information Reviewed: Yes Vital Signs On Initial Exam: Initial Vitals Temp Pulse Resp BP Pulse Ox 97.4 F 89 17 126/87 100 06/29/17 15:50 06/29/17 15:50 06/29/17 15:50 06/29/17 15:50 06/29/17 15:50 Vital Signs Reviewed: Yes - [place] Coma Scale Coma Scale Total: 15 Diagnostics - Vital Signs Vital Signs Temp Pulse Resp BP Pulse Ox 06/29/17 15:50 97.4 F 89 17 126/87 100 - Laboratory Result Diagrams: 06/29/17 16:50 06/29/17 16:50 Lab Statement: Any lab studies that have been ordered have been reviewed, and results considered in the medical decision making process. Re-Evaluation - Re-Evaluation First Eval Re-Evaluation Time: 17:38 Change: Improved Comment: Her pain is improved. I will give her a script for percocet and discharge her home. EENT Course/Dx - Course Assessment/Plan: The patient is a 32 y/o female presenting to the ED complaining of right-sided facial pain and swelling that has been present for the last three days status post a parotid dilation that was performed by Dr. Rosenbaum three days ago. I spoke with Dr. Rosenbaum on the phone and he tells me that CT is not necessary. He instructs me to give pain medication and obtain labs. The patient will follow up at his office. Bloodwork was obtained. In the ED course the patient was given Reglan, Morphine, IV fluids, and potassium chloride. On re-evaluation at 17:38, the patients pain is improved and she will be discharged home. - Diagnoses Provider Diagnoses: Parotiditis - Provider Notifications Discussed Care Of Patient With: Neal Rosenbaum Time Discussed With Above Provider: 16:30 Instructed by Provider To: Other - I spoke with Dr. Rosenbaum, ENT. He tells me that no CT is necessary. He instructs me to give pain medication and obtain labs. The patient will follow up at his office. Discharge - Discharge Plan Condition: Stable Disposition: HOME Referrals: Neal Rosenbaum MD [Medical Doctor] - (Follow up with Dr. Rosenbaum at your next scheduled appointment. ) Additional Instructions: Follow up with Dr. Rosenbaum at your next scheduled appointment. The documentation as recorded by the Devora mak Thomas accurately reflects the service I personally performed and the decisions made by me, Vivi Turner MD.
== END 2017-06-29 18:18 | disposition home or self-care (01) ==
LOC: ED 15:46
DX: K11.20 Sialoadenitis, unspecified (principal)
CPT/HCPCS: 36415; 80053; 82150; 85025; 86140; 96374; 96375; 99282; J2270; J2765

== ENCOUNTER 2017-09-11 07:25 | Day surgery (SDC) | payer BC ==
--- NOTE | 2017-08-25 09:44 | HP ---
AMENDED REPORT NOW INCLUDES COSIGNER DESIGNATION - ESIGNED BEFORE ADJUSTMENT CC: Neema Whitt NP PREOPERATIVE HISTORY AND PHYSICAL: DATE OF ADMISSION: This patient is scheduled for same-day surgery admission by Dr. Toth on 09/11/17. DATE OF PREOPERATIVE HISTORY AND PHYSICAL EXAMINATION: 08/24/17. ATTENDING SURGEON: Dr. Bharti Toth * (dictated by Jemima Cordero NP) CHIEF COMPLAINT: Right breast nipple discharge. HISTORY OF PRESENT ILLNESS: The patient is a 32-year-old female, recently evaluated by Dr. Toth for right nipple discharge. The patient reports that she first noticed the nipple discharge about 3 months ago and it was associated with pain on the side of the right breast. She denies any other breast changes. The discharge is spontaneous and typically yellow in color and she has not noticed any blood. She is not sure whether it is from more than 1 duct. She has never had a breast biopsy or any radiation to the chest. She underwent mammogram and ultrasound of the breast on 08/12/17 and the results all were within normal limits. Dr. Toth has examined the patient and notes nipple discharge from the right breast from 2 ducts, 1 duct produces milky discharge and the other produces clear discharge. Therefore, Dr. Toth has recommended terminal duct excision of the right breast as a same-day surgery procedure and has discussed the nature of the surgical procedure, the rationale for the procedure, the relevant risks and benefits, and today I discussed the postoperative care and recovery. The patient has had a chance to ask questions and stated that she understands the information and is satisfied with the answers given to her questions. She will sign surgical consent on the day of surgery. PAST MEDICAL HISTORY: Significant for common variable immune deficiency for which she receives weekly infusions at home and she is followed by Dr. Justo Abbasi; endometriosis. PAST SURGICAL HISTORY: Tubal ligation, 2016; diagnostic laparoscopy on 4 separate occasions; appendectomy, 2008; removal of right ovary and tube, 2011; meniscal repair to the left knee x2. MEDICATIONS: 1. Effexor 150 mg p.o. b.i.d. 2. Wellbutrin SR 150 mg p.o. daily in the morning. 3. Cuvitru 1 g/5 mL, 10 g weekly, subcutaneously typically on Fridays, but she will be checking with Dr. Abbasi as to when she should administer that since her surgery is scheduled for a Thursday. 4. Imitrex up to 50 mg as needed for migraines after infusions of Cuvitru. 5. Ibuprofen 600 mg t.i.d. p.r.n. pain. ALLERGIES: IV CONTRAST caused rash and respiratory distress. REVIEW OF SYSTEMS: Constitutional: No fevers or chills or excessive fatigue or weight loss. Endocrine: No diabetes or thyroid disease. Hematologic: No easy bruising or bleeding. Breasts: As described in history of present illness. Respiratory: No dyspnea or exertion or chronic cough. Cardiovascular : No anginal chest pain or palpitations. Gastrointestinal: History of irritable bowel syndrome associated with diarrhea, no change in bowel habits. No GI bleeding. No nausea or vomiting. Genitourinary: No dysuria. Musculoskeletal: Pain in her hands and knees associated with some swelling and she does have an upcoming appointment with Dr. Spencer to rule out rheumatoid arthritis or Lupus. Neurologic: Occasional migraine headaches associated with infusions of Cuvitru, no areas of focal weakness or numbness. General: No history of deep vein thrombosis or pulmonary embolism; no history of blood transfusions; she states that she has high tolerance to anesthesia and in the past has had difficulty being put under anesthesia. FAMILY HISTORY: Mother has rheumatoid arthritis. Father has hypercholesterolemia. Maternal grandmother has a history of breast and ovarian cancer. Paternal grandmother has history of breast cancer. No known anesthesia complications, bleeding tendencies, or clotting disorders in the family. SOCIAL HISTORY: She has never been a smoker. She drinks alcohol occasionally. Her mother will be with her on the day of surgery. PHYSICAL EXAMINATION GENERAL SURVEY: The patient is a 32-year-old female, well developed, overweight , in no acute distress. VITAL SIGNS: Height 62 inches, weight 171 pounds, body mass index 31. Blood pressure 114/78, pulse 84 and regular, respiratory rate 18, temperature 97 tympanic. HEENT: Benign. NECK: Supple. No cervical lymphadenopathy. LUNGS: Breath sounds bilaterally clear and equal. HEART: Regular rate and rhythm. No murmurs or rubs appreciated. BREASTS: Symmetric. No skin dimpling or nipple retraction. No supraclavicular adenopathy. Palpation of the right breast reveals no discrete masses. There is slight tenderness in the lateral aspect of the breast and then discharge from the nipple from 2 ducts; no other obvious abnormalities in the right breast. Palpation of the left breast reveals no discrete masses. No nipple discharge with manipulation. No axillary adenopathy bilaterally. ABDOMEN: Active bowel sounds. Soft, nontender, and nondistended. No obvious masses, organomegaly, or evidence of umbilical hernia. PELVIC: Deferred. RECTAL: Deferred. EXTREMITIES: Warm without edema or skin ulceration. NEUROLOGIC: Alert and oriented x3. Steady gait. SKIN: Warm, dry, and intact. IMPRESSION: Nipple discharge, right breast. PLAN: Same-day surgery admission to Dr. Toth's service on 09/11/17, for terminal duct excision, right breast. HILDA CORDERO, MARLENI [id number]/[facility] #: [id number] KISHA
[~2017-09-11 07:25] MED LIST: Buffered Lidocaine 0.9% SYRIN* 5 ML/SYR SYRINGE INTRADERM ONE; Dexamethasone IV* 4 MG/ML 1 ML (4 MG) IV SLOW PU ONE; Famotidine IV* 10 MG/ML 2 ML (20 mg) IV ONE; Lidocaine 2% PF * 5 ML VIAL ONE; Midazolam* 1 MG/ML 10 ML VIAL (10 MG) ONE; Propofol* 10 MG/ML 20 ML BTL IV PUSH ONE; fentaNYL* 50 MCG/ML 2 ML VIAL (100 MCG VIAL) ONE
[2017-09-11] MEDS ORDERED: Dexamethasone IV* 4 MG/ML 1 ML (4 MG) ONE (07:28)
[2017-09-11] MEDS ORDERED: ceFAZolin 2 GM in 100 MLS NS (*) BAG IVPB ONE (07:28)
[2017-09-11] MEDS ORDERED: Famotidine IV* 10 MG/ML 2 ML (20 mg) ONE (07:28)
[2017-09-11] MEDS ORDERED: Buffered Lidocaine 0.9% SYRIN* 5 ML/SYR SYRINGE ONE (07:28)
[2017-09-11] MEDS ORDERED: diPHENhydraMINE IV* 50 MG/ML 1 ml VIAL (BENADRYL) IV PRN (08:24)
[2017-09-11] MEDS ORDERED: Ondansetron INJ* 2 MG/ML VIAL IV PRN (08:24)
[2017-09-11] MEDS ORDERED: Naloxone* 0.4 MG/ML 1 ML VIAL IV PRN (08:24)
[2017-09-11] MEDS ORDERED: Scopolamine 1.5 mg* PATCH TRANSDERM PRN (08:24)
[2017-09-11] MEDS ORDERED: HYDROmorphone INJ* 1 MG/ML CARPUJECT SYRINGE IV PRN (08:24)
[2017-09-11] MEDS ORDERED: oxyCODONE/Acetamin 5/325 MG* TAB PO PRN ×3 (08:24→10:12)
[2017-09-11] MEDS ORDERED: HYDROcodone/ACETAMIN 5-325 MG* 1 TAB PO PRN (08:24)
[2017-09-11] MEDS ORDERED: Bupivacaine 0.25% SDV* 30 ML ONE (08:55)
[2017-09-11] MEDS ORDERED: Ketorolac INJ* 30 MG/ML 1 ML VIAL ONE (09:17)
[2017-09-11] MEDS ORDERED: Ondansetron INJ* 2 MG/ML VIAL ONE (09:17)
[2017-09-11] MEDS ORDERED: Propofol* 10 MG/ML 20 ML BTL IV PUSH ONE (09:17)
[2017-09-11] MEDS ORDERED: fentaNYL* 50 MCG/ML 2 ML VIAL (100 MCG VIAL) ONE ×2 (09:20→11:01)
--- NOTE | 2017-09-11 10:11 | BRIEFOPN ---
Brief Operative Note - Surgery Procedures: Procedures INJECT/INFUSE NEC (07/19/13) KNEE ARTHROSCOPY (11/06/03) SKIN & SUBQ INCISION NEC (09/08/08) TETANUS ANTITOXIN ADMINI (09/08/08) 09/11/17 Op Note Pre-op dx: pathologic right nipple discharge Post-op dx: same Procedure: right terminal duct excision Surgeon: Navneet Asst: MANNY Massey Anesth: general SCDs: on during surgery Abx: given pre-op EBL: 2 cc Complications: none Pt. tolerated procedure well and was transferred to in a stable condition. CLFoster
[2017-09-11] MEDS ORDERED: oxyCODONE/Acetamin 5/325 MG* TAB ONE (11:01)
[2017-09-11] MEDS: fentaNYL* 50 MCG/ML 2 ML VIAL (100 MCG VIAL) IV PRN ×2 (11:03→11:15)
[2017-09-11 11:48] VITALS: BP 114/78
--- NOTE | 2017-09-12 00:40 | OP ---
CC: Neema Whitt NP; Dr. Karel Abbasi * DATE OF OPERATION: 09/11/17 - [facility] DATE OF : 89 SURGEON: Bharti Toth MD LATCHER: TEVIN Coombs student. PRE-OP DIAGNOSIS: Pathologic right nipple discharge. POST-OP DIAGNOSIS: Pathologic right nipple discharge. OPERATIVE PROCEDURE: Terminal duct excision, right breast. INDICATIONS: Ms. Eugene is a 32-year-old woman who presented to the office with pathologic nipple discharge prompting the plan for surgical intervention. DESCRIPTION OF PROCEDURE: She was brought to the operating room, placed on the OR table in a supine position and given general anesthesia. The right breast was prepped and draped in the usual sterile fashion. After infiltrating with local anesthetic, a probe was inserted into the duct producing the discharge and then after infiltrating with local anesthetic, a curvilinear incision was made in a circumareolar fashion inferiorly. Subcutaneous tissue was divided with electrocautery to create a flap of the nipple until the ducts were encountered. Individual ducts were isolated and ligated and divided until the duct with the probe within it was identified. This was grasped with clamp. The probe was removed. It was ligated on the nipple end and then using the clamps to hold on to the probe, dissection was continued with electro-cautery around the duct to remove a con of tissue around the duct. This was marked in the usual fashion with an additional double stitch marking the duct and then handed off as a specimen. Hemostasis was assured with electro-cautery. Once this was adequate, the wound was irrigated with saline and then additional local was instilled in the wound and closure was accomplished. This was done with 3-0 Polysorb in the subcutaneous layer and the skin was closed with 4-0 Surgipro in a subcuticular fashion. Steri- Strips and a dry sterile dressing were applied. All sponge and instrument counts were correct. The patient tolerated the procedure well and was transferred to Recovery in stable condition. [id number]/[facility] #: [id number] [facility] HOSPITALJonathon
[2017-09-14] MEDS ORDERED: Scopolamine PATCH Remove* 1 NOTE MISC PATCH OFF ONE (08:24)
== END 2017-09-11 11:48 | disposition home or self-care (01) ==
LOC: OR 07:25
PROVIDERS: ATTEND Surgery
DX: N64.52 Nipple discharge (principal); N60.41 Mammary duct ectasia of right breast; N64.4 Mastodynia; D83.9 Common variable immunodeficiency, unspecified; N80.9 Endometriosis, unspecified
CPT/HCPCS: 88307; A9270-GY; J1100; J1885; J2250; J2405; J2704; J3010

== ENCOUNTER 2017-10-10 11:51 | Emergency (ER) | payer BC ==
--- OUTSIDE RECORDS SUMMARY | 2017-10-10 12:08 | XMS REPORT ---
:1985 External Reference #:[id number] Author Organization [facility] Address [address] [address] Phone [phone] Care Team Providers Name Role Phone Neema Whitt NP Primary Care Physician Unavailable Payers Type Date Identification Numbers Payment Provider Subscriber Commercial Policy Number: [id number] [employer] Leonor Connelly PayID: [id number] [address] [address] [place] [address] Medigap Part B Effective: 2012 Policy Number: BS Facets Leonor Connelly [id number] Expires: 2013 PayID: [id number] [address] [place] [address] Medigap Part B Expires: 2013 Policy Number: [id number] [facility] Mary Connelly PayID: [id number] [address] [place] [address] Problems Date Description Provider Status Onset: 10/12/2014 Neck pain Biju Nolen M.D. Active Onset: 02/26/2015 Thoracic and lumbosacral neuritis Biju Nolen M.D. 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 distress, hives Medications Medication Date Status Form Strength Qnty SIG Indications Ordering Provider Sulfasalazine 10/07/ Active Tablets 500mg 45tab take one Fahad 2017 s tab by elena Spencer M.D. daily for 1 week then 1 tab twice daily ongoing Ibuprofen 05/06/ Active Tablets 600mg 90tab tid prn M25.462 Luke 2015 s pain MD Neymar Effexor XR / Active Caps ER 150mg 1 by Unknown 0000 24HR mouth twice a day Wellbutrin SR / Active Tablets ER 150mg 1 by Unknown 0000 12HR mouth every day Cuvitru / Active Solution 1GM/5ML 10 Grams Unknown 0000 subq weekly Imitrex / Active Tablets 50mg 1 by Unknown 0000 mouth as needed for severe headache and may repeat once in 2 hours Percocet 09/13/ Hx Tablets 5-325mg 14tab 1 tab by Dave Alcantara 2018 - s mouth Schwed, 10/07/ every 4 M.D. 2018 hours as needed Oxycodone-Acetami 08/24/ Hx Tablets 5-325mg 8tabs 1 tab by Jemima pascual 2018 - mouth B. 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 Take with food. Diclofenac Sodium 10/31/ Hx Tablets DR 75mg 60tab take 1 Jamesb 2016 s tablet MD Neymar twice a day with food Mustang 10/31/ Hx Tablets 5-325mg 10tab take 1 Jamesb 2016 s tab every MD Neymar 8 hours as needed for pain Mustang 05/26/ Hx Tablets 5-325mg 30tab 1 tabs by Luke 2015 - s mouth MD Neymar 10/31/ every 6 2017 hours Tramadol HCL 05/08/ Hx Tablets 50mg 20tab one Luke 2015 - s tablet MD Neymar 10/25/ every 8 2017 hours as needed for pain orally Diclofenac Sodium 05/06/ Hx Gel 1% 200gm apply 3-4 M25.462 Zaneb 2015 - times a MD Neymar 10/31/ day to 2017 right elbow and shoulder Mustang 02/26/ Hx Tablets 5-325mg 60tab 1-2 by 724.4 Biju 2014 - s mouth Callum, 09/15/ every 6 M.D. 2018 hours as needed pain Hyrocodone & 10/12/ Hx does not Biju Muscle Relaxer 2015 - known [place], name M.DEduardo 2015 & mg Darvocet-N 100 12/29/ Hx Tablets 100 40tab 1 po q4h Mark M. 2008 - s prn Zupruk, M.DEduardo 2014 Mustang 12/14/ Hx Tablets 5-325mg 40tab 1 PO Q4H Mark M. 2008 - s prn Pain Quanruk, M.DEduardo 2014 Cyclobenzaprine / Hx Tablets 10mg Unknown HCL 0000 - 2014 Bupropion HCL ER / Hx Tablets ER 150mg Unknown (XL) 0000 24HR Sertraline HCL / Hx Tablets 100mg Unknown 0000 - 2014 Effexor XR / Hx Caps ER 37.5mg 1 qid Unknown 0000 24HR Robaxin / Hx Tablets 500mg 90tab 1 by 724.4 Jonathan Bui 0000 s mouth Pollack, three M.D. times a day as needed spasm Control / Hx Unknown 0000 Amoxicillin/Clavu / Hx Tablets 875-125mg 1 by Unknown lanate Potassium 0000 mouth twice a day Medications Administered in Office Medication Date Status Form Strength Qnty SIG Indications Ordering Provider Triamcinolone 11/06/ Administered Injection Zaneb (Kenalog) 2016 MD Neymar Immunizations CPT Code Status Date Vaccine Lot # [id number] Given 03/30/2017 Influenza Virus Vaccine, Quadrivalent, Split, Preservative Free Vital Signs Date Vital Result Comment 10/07/2017 Height 62 inches 5'2" Weight 175.25 lb Heart Rate 98 /min BP Systolic Sitting 134 mmHg BP Diastolic Sitting 93 mmHg Respiratory Rate 14 /min Pain Level 6 BMI (Body Mass Index) 32.1 kg/m2 09/21/2017 Heart Rate 72 /min Respiratory Rate 16 /min Body Temperature 99.6 F 09/16/2017 Height 62 inches 5'2" Weight 171.25 lb Heart Rate 84 /min BP Systolic Sitting 106 mmHg BP Diastolic Sitting 78 mmHg Respiratory Rate 14 /min Body Temperature 98.6 F Pain Level 0 BMI (Body Mass Index) 31.3 kg/m2 08/24/2017 Height 62 inches 5'2" Weight 171.00 lb Heart Rate 84 /min BP Systolic Sitting 114 mmHg BP Diastolic Sitting 78 mmHg Respiratory Rate 18 /min Body Temperature 97.0 F BMI (Body Mass Index) 31.3 kg/m2 08/17/2017 Heart Rate 66 /min BP Systolic Sitting 122 mmHg BP Diastolic Sitting 70 mmHg Respiratory Rate 16 /min Body Temperature 97.5 F 07/28/2017 Heart Rate 78 /min BP Systolic 114 mmHg BP Diastolic 78 mmHg Respiratory Rate 18 /min Body Temperature 97.9 F 11/06/2016 Height 62 inches 5'2" Weight 179.00 lb Heart Rate 84 /min BP Systolic 132 mmHg BP Diastolic 79 mmHg Body Temperature 98.2 F Pain Level 7 BMI (Body Mass Index) 32.7 kg/m2 05/06/2016 Height 62 inches 5'2" Weight 179.00 lb Heart Rate 92 /min BP Systolic 125 mmHg BP Diastolic 81 mmHg BMI (Body Mass Index) 32.7 kg/m2 02/26/2015 Height 62 inches 5'2" Weight 159.00 lb Heart Rate 82 /min BP Systolic Sitting 122 mmHg BP Diastolic Sitting 78 mmHg Pain Level 10 back BMI (Body Mass Index) 29.1 kg/m2 10/12/2014 Height 62 inches 5'2" Weight 159.00 lb Heart Rate 72 /min BP Systolic Sitting 120 mmHg BP Diastolic Sitting 70 mmHg Pain Level 6 neck BMI (Body Mass Index) 29.1 kg/m2 Results Test Date Test Result H/L Range Note Hla B27 09/16/2017 Hla B27 Positive 1 Hla B27 Interp See Comment 2 Celiac Hla 09/16/2017 Hla-Dqa1 SEE BELOW 3 Hla-DQB1 SEE BELOW 4 Celiac Gene Pairs Present? Yes Celiac Gene Interpretation See Comment 5 Neutrophil Cytoplasmic AB 09/16/2017 C-Anca Negative Negative P-Anca Negative Negative 6 Laboratory test 09/16/2017 Lyme Disease Serology Negative Negative 7 finding Celiac Panel 09/16/2017 Tissue Transglutaminase IgA <1.2 U/mL 8 Ab Immunoglobulin A 248 mg/dL 61 - 356 Celiac Interpretation See Comment 9 Sheeba Igg AB Reflex 09/16/2017 SS-A/Ro Antibody <0.2 U 10 SS-B/La Antibody <0.2 U 11 Sm (Abbasi) IgG Antibody <0.2 U 12 U1-nRNP Antibody 0.3 U 13 Scl-70 (Scleroderma) Antibody <0.2 U 14 Norma-1 Antibody <0.2 U 15 Laboratory test finding 09/16/2017 Cyclic Citrullinated Pep Igg <15.6 U 16 Nuclear AB (Erika) By Ifa Igg <1:80 (Negative) 17 CK Isoenzymes 09/16/2017 Creatine Kinase 47 U/L 26 - 192 CK Isoenzyme Elec, Specimen See Comment 18 Laboratory test finding 09/16/2017 Rheumatoid Factor <15 IU/mL <15 19 Angiotensin Converting Enzyme 38 U/L 8 - 53 20 Laboratory test finding 09/16/2017 Erythrocyte Sed Rate 31 mm/Hr High 0- 14 C Reactive Protein 14.10 mg/L High < 5.00 21 Vitamin B12 And Folate Serum 09/16/2017 Vitamin B12 439 pg/mL 180-914 22 Folic Acid (Folate) 13.73 ng/mL >3.99 Laboratory test finding 09/16/2017 TSH (Thyroid Stim Horm) 0.60 mcIU/mL 0.34-5.60 Thyroperoxidase AB 345.93 IU/mL High <9 Laboratory test finding 09/11/2017 Surgical Pathology SEE RESULT BELOW 23 1 REFERENCE VALUE Not Applicable 2 HLA-B27 antigen was detected. Approximately 8% of the normal population carries the HLA-B27 antigen. HLA-B27 is present in approximately 89% of patients with ankylosing spondylitis, 79% of patients with Kendall's syndrome and 42% of patients with juvenile rheumatoid arthritis. However, lacking other data, it is not diagnostic for these disorders. This test does not differentiate B27 alleles. i.e. B*27:05, B*27:06, etc. ADDITIONAL INFORMATION Method: Flow Cytometry Performing Laboratory CLIA# [id number] Test Performed by: [facility] [place] [address] 3 RESULT: 01:03,03 REFERENCE VALUE Not Applicable 4 RESULT: 03:02,06:03 DQ Serologic Equivalent: 8,6 REFERENCE VALUE Not Applicable 5 These genes are permissive for celiac disease. The absence of HLA celiac permissive genes would make the presence of celiac disease unlikely. However, these genes can also be present in the normal population. ADDITIONAL INFORMATION Method: Molecular typing of HLA antigens performed using reverse SSOP and/or SSP methods, reported as serological equivalents and low to medium resolution molecular values. Performing Laboratory CLIA# [id number] Test Performed by: [facility] [place] [address] 6 Negative for cANCA and pANCA patterns by immunofluorescence. ADDITIONAL INFORMATION This test was developed and its performance characteristics determined by [facility] in a manner consistent with CLIA requirements. This test has not been cleared or approved by the U.S. Food and Drug Administration. Test Performed by: [facility] [place] [address] 7 Serologic response to B. burgdorferi infection is not detected, but cannot rule out early infection during which low or undetectable antibody levels to B. burgdorferi may be present. If clinically indicated, a new serum specimen should be submitted in 7-14 days. Test Performed by: [facility] [address] [place] [address] 8 REFERENCE VALUE <4.0 (Negative) Test Performed by: [address] [address] 9 Negative serology. Celiac disease unlikely. However, approximately 10% of patients with celiac disease are seronegative. Also, patients who are already adhering to a gluten-free diet may be seronegative. If celiac disease is highly clinically suspected, consider HLA-DQ typing. Test Performed by: [facility] - [address] [address] 10 REFERENCE VALUE <1.0 (Negative) 11 REFERENCE VALUE <1.0 (Negative) 12 REFERENCE VALUE <1.0 (Negative) 13 REFERENCE VALUE <1.0 (Negative) 14 REFERENCE VALUE <1.0 (Negative) 15 REFERENCE VALUE <1.0 (Negative) Test Performed by: [facility] [place] [address] 16 REFERENCE VALUE <20.0 (Negative) Test Performed by: [place] [address] 17 <1:80 (Negative) REFERENCE VALUE <1:80 (Negative) Test Performed by: [place] [address] 18 RESULT: If CK result is <100, isoenzyme will not be performed. Test Performed by: [place] [address] 19 Test Performed by: [place] [address] 20 Test Performed by: [place] [address] 21 Acute inflammation: >10.00 22 Normal Range 180 to 914 Indeterminate Range 145 to 180 Deficient Range <145 23 SEE RESULT BELOW Name: LEONOR CONNELLY : [address]: Bharti Toth MD Acct: [id number] Unit: [id number] AGE: 32 Location: OR Re09/11/17 SEX: F Status: ANDRE ABDUL SPEC: [id number] JUSTYNA: 09/11/17-[address] [facility] [address]: Bharti Toth MD REQ: [id number] RECD: 09/11/17 STATUS: SOUT _ ORDERED: LEVEL 5 FINAL DIAGNOSIS Breast, right, terminal duct excision: -- 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 -- Ectatic ducts contain hemorrhagic debris. -- No evidence of invasive or in situ carcinoma. PRE-OPERATIVE DIAGNOSIS Nipple discharge; long suture lateral, medium suture medium, short suture superior, double stitch almonte the duct GROSS DESCRIPTION The specimen is received in formalin labeled, Right Breast Terminal Duct Excision, Usual Markings Plus Double Stitch Almonte Duct, and consists of a 4.2 x 3.4 x 2.3 cm yellow-pink ovoid portion of fibrofatty soft tissue with four attached sutures which are designated as follows: long-lateral, short-superior, medium-medial and double-duct. The duct is located on the mid anterior surface. The cut surface consists predominantly of pearl- white to pink rubbery fibrous tissue with moderate interspersed yellow lobulated adipose tissue. The specimen is inked as follows: superior anterior-blue, inferior anterior-green , deep-black and duct-red, serially sectioned from lateral to medial and construction representative sections are submitted in cassettes A through I to include duct in cassettes D through F. Signed (signature on file) Candy Oneal MD 1932 END OF REPORT * ML=Testing performed at Main Lab DEPARTMENT OF PATHOLOGY, [address] [place] [address] Thanh Jeong M.D. Director [facility] # [id number] Procedures Date CPT Code Description Status 09/11/2017 82446 Nipple Exploration Completed 08/12/2017 Mammogram Completed 11/06/2016 08058 Inject/Drain Joint/Bursa Major Completed 11/20/2014 Mammogram Completed Encounters Type Date Location Provider CPT E/M Dx Office Visit 09/16/2017 Rhe[facility]ology Services Fahad Spencer M.D. 52739 M79.1 9:00a Of [facility] M54.5 R20.8 R68.2 Office Visit 08/17/2017 3:15p [facility] Bharti Toth 39416 N64.52 [facility] Office Visit 07/28/2017 2:30p [facility] Bharti Toth 84579 N64.52 [facility] Office Visit 05/06/2016 2:30p [facility] [place] [address] M25.462 C.MPhilippe M76.52 M22.2x2 Office Visit 02/26/2015 4:00p [facility] Biju Nolen 85942 724.4 [facility] [place] Office Visit 10/12/2014 11:30a [facility] Services Biju Nolen 35953 723.1 Of Alice Bhatt Office Visit 09/03/2012 10:30a [facility] Of Donell Sharpe 12892 845.00 Amy Bhatt Office Visit 01/03/2009 1:00p [facility]surgery Services Mark Tong 32660 719.41 Of [facility] B[facility]t Office Visit 12/14/2008 3:00p [facility] Mark Tong [address]7966 723.4 Of [facility] [place] 719.41 Plan of Care Future Appointment(s):11/04/2017 4:20 pm - Fahad Spencer M.D. 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
--- OUTSIDE RECORDS SUMMARY | 2017-10-10 12:08 | XMS REPORT ---
:1985 External Reference #:[id number] Author Organization [facility] Address [address] [address] Phone [phone] Care Team Providers Name Role Phone Neema Whitt NP Primary Care Physician Unavailable Payers Type Date Identification Numbers Payment Provider Subscriber Commercial Policy Number: [id number] [employer] Leonor Connelly PayID: [id number] [address] [address] [place] [id number] Medigap Part B Effective: 2012 Policy Number: BS Facets Leonor Connelly [id number] Expires: 2013 PayID: [id number] [address] [address] [place] [address] Medigap Part B Expires: 2013 Policy Number: [id number] [facility] Mary Connelly PayID: [id number] [address] [place] [address] Problems Date Description Provider Status Onset: 05/06/2016 Derangement of knee Luke Blackmon MD Active Onset: 05/06/2016 Patellar tendonitis uLke Blackmon MD Active Onset: 05/06/2016 Knee joint effusion Luke Blackmon MD Active Onset: 02/26/2015 Thoracic and lumbosacral neuritis Biuj Nolen M.D. Active Onset: 10/12/2014 Neck pain Biju Nolen M.D. 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 distress, hives Medications Medication Date Status Form Strength Qnty SIG Indications Ordering Provider Percocet 09/13/ Active Tablets 5-325mg 14tab 1 tab by Dave Alcantara 2017 s mouth Schwed, every 4 M.D. hours as needed Oxycodone-Acetami 08/24/ Active Tablets 5-325mg 8tabs 1 tab by Jemima pascual 2018 mouth B. 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 Take with food. Diclofenac Sodium 10/31/ Hx Tablets DR 75mg 60tab take 1 Zaneb 2016 s tablet MD Neymar twice a day with food Mineral 10/31/ Hx Tablets 5-325mg 10tab take 1 Jamesb 2016 s tab every MD Neymar 8 hours as needed for pain Mineral 05/26/ Hx Tablets 5-325mg 30tab 1 tabs by Luke 2015 mouth MD Neymar 10/31/ every 6 2017 hours Tramadol HCL 05/08/ Hx Tablets 50mg 20tab one Luke 2015 - s tablet MD Neymar 10/25/ every 8 2017 hours as needed for pain orally Diclofenac Sodium 05/06/ Hx Gel 1% 200gm apply 3-4 M25.462 Luke 2015 - times a MD Neymar 10/31/ day to 2017 right elbow and shoulder Mineral 02/26/ Hx Tablets 5-325mg 60tab 1-2 by 724.4 Biju 2014 - s mouth [place], 09/15/ every 6 M.D. 2018 hours as needed pain Hyrocodone & 10/12/ Hx does not Biju Muscle Relaxer 2015 - known [place], 02/26/ M.Sukhdev 2015 & mg Darvocet-N 100 12/29/ Hx Tablets 100 [facility] Zupruk, M.D. 2014 Mineral 12/14/ Hx Tablets 5-325mg 40tab 1 [facility]H [facility] Pain Zupruk, M.D. 2014 Cyclobenzaprine / Hx Tablets 10mg Unknown HCL 0000 - 2014 Bupropion HCL ER / Hx Tablets ER 150mg Unknown (XL) 0000 24HR Sertraline HCL / Hx Tablets 100mg Unknown 0000 - 2014 Effexor XR / Hx Caps ER 37.5mg 1 qid Unknown 0000 24HR Robaxin / Hx Tablets 500mg 90tab 1 by 724.4 Jonathan J. 0000 s mouth [place], three M.D. times a day as needed spasm Control / Hx Unknown 0000 Amoxicillin/Clavu / Hx Tablets 875-125mg 1 by Unknown lanate Potassium 0000 mouth twice a day Medications Administered in Office Medication Date Status Form Strength Qnty SIG Indications Ordering Provider Triamcinolone 11/06/ Administered Injection Zaneb (Kenalog) 2016 MD Neymar Immunizations CPT Code Status Date Vaccine Lot # [id number] Given 03/30/2017 Influenza Virus Vaccine, Quadrivalent, Split, Preservative Free Vital Signs Date Vital Result Comment 09/16/2017 Height 62 inches 5'2" Weight 171.25 [...] Test Date Test Result H/L Range Note Laboratory test 09/11/2017 Surgical Pathology SEE RESULT BELOW 1 finding 1 SEE RESULT BELOW Name: LEONOR CONNELLY : [address]: Bharti Toth MD Acct: [id number] Unit: [id number] AGE: 32 Location: OR Re09/11/17 SEX: F Status: [facility] SPEC: [id number] JUSTYNA: 09/11/17-0936 [facility] DR: Bharti Toth MD REQ: [id number] RECD: 09/11/17 STATUS: SOUT _ ORDERED: LEVEL [...] serially sectioned from lateral to medial and shared services representative sections are submitted in cassettes A through I to include duct in cassettes D through F. Signed (signature on file) Candy Oneal MD 1933 END OF REPORT * ML=Testing performed at Main Lab DEPARTMENT OF PATHOLOGY, [address] [place] [address] Thanh Jeong M.D. Director [facility] # [id number] Procedures Date CPT Code Description Status 08/12/2017 Mammogram Completed 11/06/2016 00598 Inject/Drain Joint/Bursa Major Completed 11/20/2014 Mammogram Completed Encounters Type Date Location Provider CPT E/M Dx Office Visit 08/17/2017 [place] [address] N64.52 3:15p Of [facility] Office Visit 07/28/2017 [place] [address] N64.52 2:30p Of [facility] Office Visit 05/06/2016 [place] [address] M25.462 2:30p Of Amy M76.52 M22.2x2 Office Visit 02/26/2015 4:00p Neurosurgery Services Biju Nolen 16181 724.4 Of [facility] MJena Office Visit 10/12/2014 11:30a Neurosurgery Services Biju Nolen 48694 723.1 Of Alice MJena Office Visit 09/03/2012 10:30a [facility] Of Donell Sharpe 99271 845.00 Amy Bhatt Office Visit 01/03/2009 1:00p Neurosurgery Services [place], [address] 719.41 Of [facility] Bhatt Office Visit 12/14/2008 3:00p [facility]surgery Services [place], 23[address] 723.4 Of Alice Bhatt 719.41 Plan of Care Future Appointment(s):10/07/2017 4:00 pm - Fahad Spencer M.D. at [facility] Of [facility]09/16/2017 - Fahad Spencer M.D.M35.01 Sicca syndrome with thsdzcuzigzdsqbtdyhgF89.1 OywhwlvR58.5 Low back painFollow up:Follow up in 3 weeks or sooner if tnmzlrL15.8 Other disturbances of skin sensation
--- NOTE | 2017-10-10 12:49 | ED ---
Influenza-Like Illness - History of Current Complaint Chief Complaint: EDHeadache - Allergy/Home Medications Allergies/Adverse Reactions: Allergies Allergy/AdvReac Type Severity Reaction Status Date / Time Iodinated Contrast- Oral and Allergy RESPIRATORY Verified 10/10/17 11:57 IV Dye DISTRESS AND RASH PMH/Surg Hx/FS Hx/Imm Hx Endocrine/Hematology History: Reports: Other Endocrine/Hematological Disorders - CVID Denies: Hx Anticoagulant Therapy, Hx Diabetes, Hx Thyroid Disease Cardiovascular History: Denies: Hx Atrial Fibrillation, Hx Congenital Heart Disease, Hx Deep Vein Thrombosis, Hx Hypertension, Hx Pacemaker/ICD Respiratory History: Denies: Hx Asthma, Hx Chronic Obstructive Pulmonary Disease (COPD) GI History: Reports: Hx Gastroesophageal Reflux Disease, Hx Irritable Bowel, Other GI Disorders - colitis History: Denies: Hx Renal Disease Musculoskeletal History: Reports: Hx Arthritis, Hx Back Problems - back to left leg with spasms, Hx Tendonitis - LEFT KNEE Sensory History: Reports: Hx Contacts or Glasses - CONTACTS, INSTRUCTED TO WEAR GLASSES DAY OF SURGERY Denies: Hx Hearing Aid Opthamlomology History: Reports: Hx Contacts or Glasses - CONTACTS, INSTRUCTED TO WEAR GLASSES DAY OF SURGERY Neurological History: Reports: Hx Headaches, Hx Migraine - POST INFUSIONS- PRN IMITREX Denies: Hx Dementia, Hx Seizures Psychiatric History: Reports: Hx Anxiety - CONTROL WITH MEDS, Hx Depression - CONTROL WITH MEDS Denies: Hx Panic Disorder, Hx Substance Abuse - Cancer History Hx Chemotherapy: No Hx Radiation Therapy: No - Surgical History Surgery Procedure, Year, and Place: 2004 & 2006 LEFT KNEE ARTHROSCOPY, [facility] – [place]. 2009 LAPAROSCOPY APPENDECTOMY, [facility] [place]. 2010 DIAGNOSTIC LAPAROSCOPY FOR BILATERAL OVARIAN CYST, [facility] – [place] X 2. 2011 DIAGNOSTIC LAPAROSCOPY WITH RIGHT SALPINGECTOMY AND OOPHORECTOMY, [facility]. TUBAL LIGATION - Lt SIDE Hx Anesthesia Reactions: Yes - SLOW TO GO INTO ANESTHESIA - Immunization History Date of Tetanus Vaccine: unsure Date of Influenza Vaccine: Fall 2013 Infectious Disease History: No Infectious Disease History: Reports: Hx of Known/Suspected MRSA - surgical wounds Denies: Hx Clostridium Difficile, Hx Hepatitis, Hx Human Immunodeficiency Virus (HIV), Hx Shingles, Hx Tuberculosis, Hx Known/Suspected VRE, Hx Known/ Suspected VRSA, History Other Infectious Disease, Traveled Outside the [place] in Last 30 Days - Family History Known Family History: Positive: None, Hypertension, Other - sister with migraines - Social History Alcohol Use: Weekly Alcohol Amount: 2-3 TIMES PER WEEK Substance Use Type: Reports: None Smoking Status (MU): Never Smoked Tobacco Physical Exam Vital Signs On Initial Exam: Initial Vitals Temp Pulse Resp BP Pulse Ox 98.9 F 104 20 137/89 97 10/10/17 11:57 10/10/17 11:57 10/10/17 11:57 10/10/17 11:57 10/10/17 11:57 Diagnostics - Vital Signs Vital Signs Temp Pulse Resp BP Pulse Ox 10/10/17 11:57 98.9 F 104 20 137/89 97 - Laboratory Lab Statement: Any lab studies that have been ordered have been reviewed, and results considered in the medical decision making process. Flu Symptom Course/Dx - Diagnoses Provider Diagnoses: Viral syndrome Discharge - Discharge Plan Condition: Good Disposition: HOME Prescriptions: Oseltamivir CAP* [Tamiflu CAP*] 75 mg PO BID #10 cap Referrals: Neema Whitt NP [Primary Care Provider] -
[2017-10-10] MEDS ORDERED: NS 0.9% 1000 ML* 1,000 ML IV ONE (13:42)
[2017-10-10] MEDS ORDERED: Metoclopramide IV* 5 MG/ML 2 ML VIAL IV ONE (13:42)
[2017-10-10] MEDS ORDERED: Ketorolac INJ* 30 MG/ML 1 ML VIAL IV ONE (13:42)
[2017-10-10] MEDS ORDERED: diPHENhydraMINE PO* 50 MG PO ONE (13:42)
[2017-10-10] MEDS ORDERED: diPHENhydraMINE IV* 50 MG/ML 1 ml VIAL (BENADRYL) IV ONE (13:50)
[2017-10-10 16:22] VITALS: BP 106/66
--- NOTE | 2017-10-11 15:11 | ED ---
Devora Beavers Thomas, scribed for Martinez Sanchez MD on 10/10/17 at 1413 . Headache - HPI Summary HPI Summary: The patient is a 32 year old female presenting with a headache that began today at 04:00. The pain is located in the back of her head and is described as throbbing. She took Immitrex to no relief of pain. She additionally complains of nausea, vomiting, and a stiff neck. She is on subcutaneous immunoglobulin therapy, which has given her migraines in the past. - History Of Current Complaint Chief Complaint: EDHeadache Stated Complaint: N/V/ NECK STIFFNESS Time Seen by Provider: 10/10/17 13:27 Hx Obtained From: Patient Hx Last Menstrual Period: 04/05/17 Onset/Duration: Started hours ago, Still Present Currently Pain Is: Severe Timing: Constant Character: Throbbing Location of Headache: Other: - back of head Aggravating Factor: Nothing Allevating Factors: Nothing - Immitrex did not alleviate pain Associated Signs And Symptoms: Nausea, Vomiting, Other (Noted In Comments) - Stiff neck Related History: Similar Episode/DX As: - prior migraine from immunoglobulin therapy - Allergies/Home Medications Allergies/Adverse Reactions: Allergies Allergy/AdvReac Type Severity Reaction Status Date / Time Iodinated Contrast- Oral and Allergy RESPIRATORY Verified 10/10/17 11:57 IV Dye DISTRESS AND RASH PMH/Surg Hx/FS Hx/Imm Hx Endocrine/Hematology History: Reports: Other Endocrine/Hematological Disorders - CVID Denies: Hx Anticoagulant Therapy, Hx Diabetes, Hx Thyroid Disease Cardiovascular History: Denies: Hx Atrial Fibrillation, Hx Congenital Heart Disease, Hx Deep Vein Thrombosis, Hx Hypertension, Hx Pacemaker/ICD Respiratory History: Denies: Hx Asthma, Hx Chronic Obstructive Pulmonary Disease (COPD) GI History: Reports: Hx Gastroesophageal Reflux Disease, Hx Irritable Bowel, Other GI Disorders - colitis History: Denies: Hx Renal Disease Musculoskeletal History: Reports: Hx Arthritis, Hx Back Problems - back to left leg with spasms, Hx Tendonitis - LEFT KNEE Sensory History: Reports: Hx Contacts or Glasses - CONTACTS, INSTRUCTED TO WEAR GLASSES DAY OF SURGERY Denies: Hx Hearing Aid Opthamlomology History: Reports: Hx Contacts or Glasses - CONTACTS, INSTRUCTED TO WEAR GLASSES DAY OF SURGERY Neurological History: Reports: Hx Headaches, Hx Migraine - POST INFUSIONS- PRN IMITREX Denies: Hx Dementia, Hx Seizures Psychiatric History: Reports: Hx Anxiety - CONTROL WITH MEDS, Hx Depression - CONTROL WITH MEDS Denies: Hx Panic Disorder, Hx Substance Abuse - Cancer History Hx Chemotherapy: No Hx Radiation Therapy: No - Surgical History Surgery Procedure, Year, and Place: 2004 & 2006 LEFT KNEE ARTHROSCOPY, [facility] – [place]. 2009 LAPAROSCOPY APPENDECTOMY, [facility] [place]. 2010 DIAGNOSTIC LAPAROSCOPY FOR BILATERAL OVARIAN CYST, [facility] [place] X 2. 2010 DIAGNOSTIC LAPAROSCOPY WITH RIGHT SALPINGECTOMY AND OOPHORECTOMY, [facility]. TUBAL LIGATION - Lt SIDE Hx Anesthesia Reactions: Yes - SLOW TO GO INTO ANESTHESIA - Immunization History Date of Tetanus Vaccine: unsure Date of Influenza Vaccine: Fall 2013 Infectious Disease History: No Infectious Disease History: Reports: Hx of Known/Suspected MRSA - surgical wounds Denies: Hx Clostridium Difficile, Hx Hepatitis, Hx Human Immunodeficiency Virus (HIV), Hx Shingles, Hx Tuberculosis, Hx Known/Suspected VRE, Hx Known/ Suspected VRSA, History Other Infectious Disease, Traveled Outside the [place] in Last 30 Days - Family History Known Family History: Positive: Hypertension, Other - sister with migraines - Social History Alcohol Use: Weekly Alcohol Amount: 2-3 TIMES PER WEEK Substance Use Type: Reports: None Smoking Status (MU): Never Smoked Tobacco Review of Systems Negative: Fever Positive: Vomiting, Nausea Positive: Other - Stiff neck Positive: Headache All Other Systems Reviewed And Are Negative: Yes Physical Exam - Summary Physical Exam Summary: Appearance: The patient is well-nourished in no acute distress and in no acute pain. Skin: The skin is warm and dry and skin color reflects adequate perfusion. HEENT: ~The head is normocephalic and atraumatic. The pupils are equal and reactive. The conjunctivae are clear and without drainage. ~Nares are patent and without drainage. Mouth reveals moist mucous membranes and the throat is without erythema and exudate. The external ears are intact. The ear canals are patent and without drainage. The tympanic membranes are intact. Neck: the neck is supple with full range of motion and non-tender. There are no carotid bruits. ~There is no neck vein distension. Respiratory: Chest is non-tender. ~Lungs are clear to auscultation and breath sounds are symmetrical and equal. Cardiovascular: Heart is regular rate and rhythm. ~There is no murmur or rub auscultated. ~~There is no peripheral edema and pulses are symmetrical and equal. Abdomen: The abdomen is soft and non-tender. ~There are normal bowel sounds heard in all four quadrants and there is no organomegaly palpated. Musculoskeletal: There is no back tenderness noted. ~Extremities are non-tender with full range of motion. ~There is good capillary refill. There is no peripheral edema or calf tenderness elicited. Neurological: Patient is alert and oriented to person, place and time. ~The patient has symmetrical motor strength in all four extremities. ~Cranial nerves are grossly intact. Deep tendon reflexes are symmetrical and equal in all four extremities. Psychiatric: The patient has an appropriate affect and does not exhibit any anxiety or depression. Triage Information Reviewed: Yes Vital Signs On Initial Exam: Initial Vitals Temp Pulse Resp BP Pulse Ox 98.9 F 104 20 137/89 97 10/10/17 11:57 10/10/17 11:57 10/10/17 11:57 10/10/17 11:57 10/10/17 11:57 Vital Signs Reviewed: Yes Diagnostics - Vital Signs Vital Signs Temp Pulse Resp BP Pulse Ox 10/10/17 13:03 96 97 10/10/17 13:01 130/96 10/10/17 11:57 98.9 F 104 20 137/89 97 - Laboratory Lab Statement: Any lab studies that have been ordered have been reviewed, and results considered in the medical decision making process. Headache Course/Dx - Course Course Of Treatment: Ms. Eugene presented with a migraine ALVAREZ after IV IG. This has happened many times but the ALVAREZ usually responds to immitrex. The ALVAREZ was fully releived by a 'migraine cocktail' of ketorolac, benadryl, reglan and IV NS. - Diagnoses Provider Diagnoses: Migraine Discharge - Discharge Plan Condition: Stable Disposition: HOME Patient Education Materials: Migraine Headache (ED) Referrals: Neema Whitt NP [Primary Care Provider] - 3 Days Additional Instructions: Follow up with your primary care physician in three days. Return to the emergency department for any new or worsening symptoms. The documentation as recorded by the Devora mak Thomas accurately reflects the service I personally performed and the decisions made by , Martinez Sanchez MD.
== END 2017-10-10 16:17 | disposition home or self-care (01) ==
LOC: ED 11:51
DX: G43.909 Migraine, unspecified, not intractable, without status migrainosus (principal); R11.2 Nausea with vomiting, unspecified
CPT/HCPCS: 99284; J1200; J1885; J2765

== ENCOUNTER 2017-11-13 11:08 | Day surgery (SDC) | payer BC ==
[~2017-11-13 11:08] MED LIST changes: -Buffered Lidocaine 0.9% SYRIN* 5 ML/SYR SYRINGE INTRADERM ONE; -Dexamethasone IV* 4 MG/ML 1 ML (4 MG) IV SLOW PU ONE; -Famotidine IV* 10 MG/ML 2 ML (20 mg) IV ONE; -Midazolam* 1 MG/ML 10 ML VIAL (10 MG) ONE; +Midazolam* 1 MG/ML 5 ML VIAL (5 MG) ONE; +Rocuronium* 10 MG/ML VIAL ONE
[2017-11-13] MEDS ORDERED: fentaNYL* 50 MCG/ML 2 ML VIAL (100 MCG VIAL) IV PRN (11:32)
[2017-11-13] MEDS ORDERED: Acetaminophen TAB* 325 MG PO PRN (11:32)
[2017-11-13] MEDS ORDERED: oxyCODONE/Acetamin 5/325 MG* TAB PO PRN (11:32)
[2017-11-13] MEDS ORDERED: Ketorolac INJ* 30 MG/ML 1 ML VIAL IV PRN (11:32)
[2017-11-13] MEDS ORDERED: diPHENhydraMINE IV* 50 MG/ML 1 ml VIAL (BENADRYL) IV PRN (11:32)
[2017-11-13] MEDS ORDERED: oxyCODONE TAB* 5 MG TAB PO PRN (11:32)
[2017-11-13] MEDS ORDERED: Naloxone* 0.4 MG/ML 1 ML VIAL IV PRN (11:32)
[2017-11-13] MEDS ORDERED: Scopolamine 1.5 mg* PATCH TRANSDERM PRN (11:32)
[2017-11-13] MEDS ORDERED: HYDROmorphone INJ* 1 MG/ML CARPUJECT SYRINGE IV PRN (11:32)
[2017-11-13] MEDS ORDERED: Ondansetron INJ* 2 MG/ML VIAL IV PRN (11:32)
[2017-11-13] MEDS ORDERED: Sugammadex * 200 MG/2 ML VIAL IV PUSH ONE (11:53)
[2017-11-13 15:43] VITALS: BP 115/69
--- NOTE | 2017-11-13 21:38 | PRO ---
CC: SAMIRA Vasquez GASTROENTEROLOGY PROCEDURE NOTE: DATE OF PROCEDURE: 11/13/17 REFERRING PHYSICIAN: SAMIRA Vasquez PROCEDURE: Colonoscopy to cecum and terminal ileum with random biopsies. PREOPERATIVE DIAGNOSIS: A 32-year-old female who describes issues with chronic diarrhea, intermitten t abdominal pain and rectal bleeding. She does have a family history of inflammatory bowel disease. POSTOPERATIVE DIAGNOSES: 1. Normal appearing colonic mucosa from the rectum to the cecum without evidence of mass or polyp. 2. No evidence of colitis or proctitis. Random biopsies obtained at the right colon to rule out isabel roscopic colitis. 3. Normal terminal ileum. 4. Internal hemorrhoids. PROCEDURE MEDICATIONS: Per Anesthesia. INSTRUMENT: PCF-190 Olympus variable high-definition pediatric colonoscope. DESCRIPTION OF PROCEDURE: Informed consent was obtained prior to performing this procedure. The ins trument was introduced into the anus and passed through the rectum under direct visualization. The i nstrument was then advanced up to the cecum. The cecum was confirmed by visualization of the appendi ceal orifice, ileocecal valve, and tri-folds of the cecum. The colonoscope was slowly withdrawn. The preparation was excellent. The ileocecal valve was intubated. The terminal ileum was entered for 2 0 to 30 cm and was normal in appearance without evidence of Crohn's disease. The scope was slowly wi thdrawn, the mucosa of the cecum, ascending colon, transverse colon, descending colon, sigmoid colon and rectum was normal. Random biopsies were obtained at the right colon to rule out microscopic coli tis. Internal hemorrhoids visualized in the rectum. The patient tolerated the procedure well and th ere were no complications. RECOMMENDATIONS: The patient had positive celiac gene, although negative antibody testing. She may have some degree of gluten sensitivity. I have recommended a trial of gluten free diet and the patie nt should arrange with the office to have a lactulose breath test to rule out small bowel bacterial o vergrowth. She will follow up in the office in 1 to 2 months as well. I will notify her of biopsy r esults in 1 week. [id number]/[facility] #: [id number]
--- NOTE | 2017-11-13 21:47 | PRO ---
CC: Neema Whitt NP GASTROENTEROLOGY PROCEDURE NOTE: DATE OF PROCEDURE: 11/13/17 REFERRING PHYSICIAN: Neema Whitt NP PROCEDURE: EGD with biopsies. PREOPERATIVE DIAGNOSIS: A 32-year-old female with recent onset of acid reflux symptoms as well as ch ronic issues with diarrhea, who had a positive celiac gene noted, but tested negative for celiac anti bodies. POSTOPERATIVE DIAGNOSES: 1. Mild distal esophagitis with jagged Z line, biopsies obtained to rule o ut short segment Nielsen's. 2. Mild antral gastritis without erosion or ulceration, biopsies obtained for H. pylori with CLOtest . 3. Normal duodenal bulb and descending duodenum, biopsies obtained, rule out celiac disease. PROCEDURE MEDICATIONS: Per Anesthesia. INSTRUMENT: GF-190 Olympus high definition gastroscope. DESCRIPTION OF PROCEDURE: Informed consent was obtained prior to performing this procedure. The ins trument was introduced into the mouth and passed through the cervical esophagus under direct visualiz ation. The instrument was then advanced down the esophagus. There was evidence of mild inflammation in the distal esophagus as well as a jagged Z line. Biopsies were obtained to rule out short segmen t Nielsen's. The scope was then passed into the gastric cardia, fundus body, and antrum. There was mild antral gastritis without erosion or ulceration. Biopsies were obtained for H. pylori by CLOtest. The scope was then passed through the pylorus and duodenal bulb and descending duodenum. The appea kimber was normal. Biopsies were obtained to rule out celiac disease. The gastric cardia was visualiz ed in a retroflex manner. No abnormalities were noted. The instrument was withdrawn from the patien t. The patient tolerated the procedure well and there were no complications. RECOMMENDATIONS: I gareth l begin the patient on omeprazole 40 mg q.a.m. for at least 3 months for healing of her gastritis and esophagitis. She will follow up in the office in 1 to 2 months and I will notify her of biopsy resu lts in 1 week. I have recommended the trial of a gluten free diet even if biopsies return negative f or celiac. [id number]/[facility] [place] #: [id number]
[2017-11-16] MEDS ORDERED: Scopolamine PATCH Remove* 1 NOTE MISC PATCH OFF ONE (11:32)
== END 2017-11-13 16:28 | disposition home or self-care (01) ==
LOC: OR 11:08
PROVIDERS: ATTEND Internal Medicine
DX: R10.84 Generalized abdominal pain (principal); Z15.89 Genetic susceptibility to other disease; R19.7 Diarrhea, unspecified; K20.9 Esophagitis, unspecified; K29.70 Gastritis, unspecified, without bleeding; K92.2 Gastrointestinal hemorrhage, unspecified; K64.8 Other hemorrhoids; K21.9 Gastro-esophageal reflux disease without esophagitis; R00.2 Palpitations; D83.9 Common variable immunodeficiency, unspecified
CPT/HCPCS: 87077; 88305; J2250; J2704; J3010

== ENCOUNTER 2018-03-02 11:36 | Observation (INO) | payer BC ==
[2018-03-02] MEDS ORDERED: Ondansetron INJ* 2 MG/ML VIAL IV ONE ×2 (13:16→15:01)
[2018-03-02] MEDS ORDERED: NS 0.9% 1000 ML*IV.FLUID IV ONE (13:16)
[2018-03-02] MEDS ORDERED: metroNIDAZOLE IV 500 MG/100ML* 500 MG/100 ML BAG IVPB ONE (13:16)
[2018-03-02] MEDS ORDERED: cefTRIAXone(*) 1 GM in NS 0.9% 50 ML* 50 ML IVPB ONE (13:16)
[2018-03-02] MEDS ORDERED: Morphine VIAL* 10 MG/ML 1 ML VIAL IV ONE ×2 (13:20→15:01)
--- NOTE | 2018-03-02 14:05 | ED ---
Abdominal Pain/Female - HPI Summary HPI Summary: This is scribe Mariano Edwardin documenting for attending Kristen Love MD. A 33 y/o female presents to ED c/o sharp left lower quadrant abdominal pain reaching 8/10 in severity. As per triage, "pt states shes having left flank pain and states she beleives its her ovaries causing it. Pt works here in the [employer]. In the ED room, the patient has a pulse of 104 BPM, O2 saturation of 99% and blood pressure of 127/94 and temp is 97.9 temporal. According to the patient, for the past two weeks she has been experiencing abdominal discomfort. She stated that the pain started to increase 4 days ago (Thursday, February 26 2018 ) and today it became really bad. Additionally, she has experiences a low-grade temp of approximately 100 F (which is high for her since she is normally about 95 F. She came to the ED because her Dr. Abbasi, her manager agricultural recommendeded that she be evaluated because she has an immune deficiency disorder, CVID, and is on immunoglobulin replacement medication). She stated that last night when she and her were having sexual intercourse, he felt a push back or something on the left side and her pain increased at that time. He said the same thing when she had her right ovarian cyst. Also, she had a lot of pain during the intercourse. Pt denies any cough or urinary symptoms, however, does have frequent urination and nausea. She noted that she is on new medication ( CUVITRU 10 mg), immunoglobulin replacement, because she does not make IgG, IgM or IgA antibodies. She states she has not taken the CUVITRU in 3 weeks because, when normally she would take it weekly, because it was giving her headaches, which Dr. Chilel felt could have been aseptic meningitis. PMHx of Ab0 (sees Dr. Dubois), appendectomy, endometriosis, 13 cm right ovarian cyst. S/P right oophorectomy at [place], laparoscopy (4-5x) to remove cysts and adhesions, breast biopsy for mastitis, and knee scopes (2) denies cholecystectomy. FHx of cancer, HTN, thyroid issues (mom), high cholesterol (dad ), [place] (grandfather, father side). SHx of occasional ETOH, no recreational substances. Allergic to contrast, no known allergies to medications. Patient can get to drive her home. LKMP was 02/12/2018. It was noted that Dr. Dubois diagnosied her with endometriosis and found "23 cysts" in her right ovary. Patient took Ibuprofen 800mg at 0730 this morning which didn't alleviate symptoms. I, Dr. Kristen Love, personally performed the services described in this documentation as scribed in my presence and it is both accurate and complete. - History of Current Complaint Chief Complaint: EDFlankPain Stated Complaint: NAUSEA/VOMITING/PELVIC PAIN Time Seen by Provider: 03/02/18 13:06 Hx Obtained From: Patient Hx Last Menstrual Period: 02/12/18 ?: No Onset/Duration: Sudden Onset, Lasting Weeks, Still Present, Worse Since - 2 weeks ago. Timing: Constant Severity Initially: Moderate Severity Currently: Severe - 8/10 Pain Intensity: 6 Pain Scale Used: 0-10 Numeric Location: Discrete At: LLQ Radiates: No Character: Sharp Aggravating Factor(s): Nothing Alleviating Factor(s): Nothing Associated Signs and Symptoms: Positive: Fever, Urinary Symptoms - Frequent urination., Nausea. Negative: Cough - Risk Factors Ectopic Risk Factor: Prior Pelvic Surgery, Tubal Ligation Ovarian Torsion Risk Factor: Reproductive Age, Ovarian Cysts/Tumors Allergies/Adverse Reactions: Allergies Allergy/AdvReac Type Severity Reaction Status Date / Time Iodinated Contrast- Oral and Allergy RESPIRATORY Verified 11/13/17 11:29 IV Dye DISTRESS AND RASH Home Medications: Home Medications Topiramate TAB(*) [Topamax 100 mg tab] 100 mg PO BEDTIME 03/02/18 [History Confirmed 03/02/18] PMH/Surg Hx/FS Hx/Imm Hx Endocrine/Hematology History: Reports: Hx Thyroid Disease - possible hashimotos , Other Endocrine/Hematological Disorders - CVID Denies: Hx Anticoagulant Therapy, Hx Diabetes Cardiovascular History: Denies: Hx Atrial Fibrillation, Hx Congenital Heart Disease, Hx Deep Vein Thrombosis, Hx Hypertension, Hx Pacemaker/ICD, Other Cardiovascular Problems/ Disorders Respiratory History: Denies: Hx Asthma, Hx Chronic Obstructive Pulmonary Disease (COPD), Other Respiratory Problems/Disorders GI History: Reports: Hx Gastroesophageal Reflux Disease, Hx Irritable Bowel, Other GI Disorders - colitis History: Denies: Hx Renal Disease Musculoskeletal History: Reports: Hx Arthritis, Hx Back Problems, Hx Tendonitis - LEFT KNEE Sensory History: Reports: Hx Contacts or Glasses - CONTACTS, INSTRUCTED TO WEAR GLASSES DAY OF SURGERY Denies: Hx Hearing Aid Opthamlomology History: Reports: Hx Contacts or Glasses - CONTACTS, INSTRUCTED TO WEAR GLASSES DAY OF SURGERY Neurological History: Reports: Hx Headaches, Hx Migraine - POST INFUSIONS- PRN IMITREX Denies: Hx Dementia, Hx Seizures, Other Neuro Impairments/Disorders Psychiatric History: Reports: Hx Anxiety - CONTROL WITH MEDS, Hx Depression - CONTROL WITH MEDS Denies: Hx Panic Disorder, Hx Substance Abuse - Cancer History Hx Chemotherapy: No Hx Radiation Therapy: No - Surgical History Surgery Procedure, Year, and Place: 2004 & [place] [facility] [place] [facility] [place] BILATERAL [place]ST[place] [facility] [place]. 2011 DIAGNOSTIC LAPAROSCOPY WITH RIGHT SALPINGECTOMY AND OOPHORECTOMY, [facility]. TUBAL LIGATION -. right breast terminal duct bx, [facility] – [place], 08/2017 Hx Anesthesia Reactions: Yes - needs alot of anesthesia - Immunization History Date of Tetanus Vaccine: unsure Infectious Disease History: Yes Infectious Disease History: Reports: Hx of Known/Suspected MRSA - surgical wounds Denies: Hx Clostridium Difficile, Hx Hepatitis, Hx Human Immunodeficiency Virus (HIV), Hx Shingles, Hx Tuberculosis, Hx Known/Suspected VRE, Hx Known/ Suspected VRSA, History Other Infectious Disease, Traveled Outside the [place] in Last 30 Days - Family History Known Family History: Positive: Hypertension, Other - sister with migraines - Social History Occupation: Employed Full-time Lives: With Family Alcohol Use: Weekly Alcohol Amount: 2-3 TIMES PER WEEK Substance Use Type: Reports: None Smoking Status (MU): Never Smoked Tobacco Review of Systems Positive: Fever Cardiovascular: Negative Negative: Cough Positive: Abdominal Pain, Nausea Positive: frequency - increased Skin: Negative Neurological: Negative Psychological: Normal All Other Systems Reviewed And Are Negative: Yes Physical Exam - Summary Physical Exam Summary: Appearance: ill-appearing, moderate pain distress, well-nourished Skin:Warm, color reflects adequate perfusion, dry Head:Normal Head/Face inspection, atraumatic Eyes: Conjunctiva clear ENT:Normal inspection Neck:Supple, no nodes, no JVD Respiratory: Lungs clear, normal breath sounds, no respiratory distress Cardio: RRR, No murmur, pulses normal, brisk capillary refill Abdomen: Soft, LLQ tenderness, no guarding, no rebound, no masses. Bowel sounds: Present Musculoskeletal: Strength Intact/ROM intact, no calf tenderness, no edema. Psychological: Normal Neuro: Alert, muscle tone normal, no focal deficit Triage Information Reviewed: Yes Vital Signs On Initial Exam: Initial Vitals Temp Pulse Resp BP Pulse Ox 97.9 F 104 16 127/93 98 03/02/18 11:40 03/02/18 11:40 03/02/18 11:40 03/02/18 11:40 03/02/18 11:40 Vital Signs Reviewed: Yes Diagnostics - Vital Signs Vital Signs Temp Pulse Resp BP Pulse Ox 03/02/18 13:55 20 03/02/18 11:40 97.9 F 104 16 127/93 98 - Laboratory Result Diagrams: 03/03/18 06:59 03/03/18 06:59 Lab Statement: Any lab studies that have been ordered have been reviewed, and results considered in the medical decision making process. - Radiology CXR Radiology Interpretation Completed By: Radiologist - No radiographic evidence for acute cardiopulmonary abnormality on this portable chest x-ray. ED physician reviewed this radiology report. - CT CT A/P CT Interpretation Completed By: Radiologist - Noncontrast imaging demonstrates no acute CT findings. There is no mass or inflammatory change. ED physician reviewed this radiology report. - Ultrasound No standard instances Ultrasound Interpretation Completed By: Radiologist - TRANSVAGINAL US: Endometrial echo measures up to 0.7 cm. Patient status post right oophorectomy. Left ovary is normal. ED physician reviewed this radiology report. Re-Evaluation - Re-Evaluation Second Eval Re-Evaluation Time: 17:18 Change: Unchanged Comment: Patient still has pain. First Eval Re-Evaluation Time: 14:50 Change: Unchanged Comment: In the ED room, the patient has a pulse of 98 BPM, O2 saturation of 99 % and blood pressure if 125/81. Discussed results with patient. Patient still hs left lower quadrant pain. Patient agrees with CT. Patient is allergic to IV contrast (thinks she can take oral, but not sure) as she goes into respiratory distress and gets hives (hapenned during her appendectomy). Currently, her right side is fine. Didn't have white count with appendix. Patient is still currently in pain post-US. Dr. Love will give patient Morphine and Zofran. Cancel. Re-Evaluation Time: 17:20 Change: Unchanged Comment: Medicine will admit pt for observation with continued pain and hx immunodeficiency. Abdominal Pain Fem Course/Dx - Course Course Of Treatment: A 33 y/o female with hx CVID (immune deficiency disorder, on immunoglobulin replacement RX), and s/p R oophorectomy for ovarian torsion due to 13cm ovarian cyst, presents to ED c/o sharp left flank abdominal pain reaching 8/10 in severity and increased temp 100 last pm. A Transvaginal US revealed endometrial echo measures up to 0.7 cm. Patient status post right oophorectomy. Left ovary is normal. A CXR revealed no radiographic evidence for acute cardiopulmonary abnormality on this portable chest x-ray. A CT A/P revealed noncontrast imaging demonstrates no acute CT findings. There is no mass or inflammatory change. Pt has a normal white count, is afebrile in the ED. Because of pt's immune deficiency and possilbe sepsis due to abdominal source she was started on sepsis pathway. In the ED course, the patient recieved Ceftriaxone 1 gm IV Flagyl 500mg IV (for poss abd source of infection) , Morphine 10mg total IV, Zofran and IV fluids (30ml/kg). Patient's medications were reviewed this visit. Patient care was discussed with hospitalist, Dr. Baig, who consulted with patient and accepted for admission. Patient will be admitted with a diagnosis of LLQ abdominal pain and immunosuppressed. Patient is agreeable with this plan. - Diagnoses Differential Diagnosis: Positive: Bowel Obstruction, Constipation, Diverticulitis, Ectopic , Ovarian Cyst, Pelvic Inflammatory Disease, , Renal Colic, Urinary Tract Infection Provider Diagnoses: LLQ abdominal pain, Immunosuppression, CVID (common variable immunodeficiency) , Endometriosis - Provider Notifications Discussed Care Of Patient With: Stacey Baig Time Discussed With Above Provider: 17:15 Instructed by Provider To: Other - Will consult with patient. Accepts patient for admission. Discharge - Sign-Out/Discharge Documenting (check all that apply): Patient Departure - ADMIT - Discharge Plan Condition: Stable Disposition: ADMITTED TO [facility] - Billing Disposition and Condition Condition: STABLE Disposition: Admitted to [facility]
[2018-03-02 14:15] LABS: ABS Basophils 0 10^3/ul (0-0.2); ABS Eosinophils 0 10^3/ul (0-0.6); ABS Lymphocytes 1.3 10^3/ul (1.0-4.8); ABS Monocytes 0.4 10^3/ul (0-0.8); ABS Neutrophils 6.3 10^3/ul (1.5-7.7); ABS Nucleated RBC 0 10^3/ul; Eosinophil % 0.4 % (0-6); Hematocrit 42 % (35-47); Hemoglobin 14.4 g/dl (12.0-16.0); Lymphocyte % 16.6 % (25-47); Mean Corpuscular HGB Conc 34 g/dl (31-36); Mean Corpuscular Hemoglobin 31 pg (27-31); Mean Corpuscular Volume 91 fL (80-97); Mean Platelet Volume 8.9 um3 (7.4-10.4); Nucleated Red Blood Cells % 0; Platelet Count 284 10^3/ul (150-450); Red Blood Count 4.65 10^6/ul (4.00-5.40); Red Cell Distribution Width 16 % (10.5-15); White Blood Count 8.1 10^3/ul (3.5-10.8)
[2018-03-02 14:23] LABS: INR 0.89 (0.77-1.02)
--- NOTE | 2018-03-02 14:43 | RAD ---
Indication: Left lower quadrant pain status post right oophorectomy. Real-time sonography of the pelvis was performed utilizing endovaginal technique. The uterus measures 7.2 x 3.1 x 3.7 cm. Endometrial echo appears thickened and measures up to 0.7 cm. The right ovary has been resected. Left ovary measures 4.3 x 3.4 x 3.1 cm with low flow noted in the left ovary. Follicles are noted. IMPRESSION: Endometrial echo measures up to 0.7 cm. Patient status post right oophorectomy. Left ovary is normal.
--- NOTE | 2018-03-02 15:03 | RAD ---
INDICATION: Fever COMPARISON: Most recent comparison chest x-rays dated August 19, 2016 TECHNIQUE: Single AP portable view of the chest was obtained. FINDINGS: Image quality is compromised due to the relative inferiority of a portable chest x-ray. The heart and mediastinum exhibit normal size and contour. The lungs are grossly clear. There is no evidence of a large pleural effusion. Visualized bones are normal for the patient's age. IMPRESSION: No radiographic evidence for acute cardiopulmonary abnormality on this portable chest x-ray.
[2018-03-02 15:07] LABS: Urine Appearance Clear; Urine Blood Negative (Negative); Urine Color Yellow; Urine Ketones Trace (Negative); Urine Protein Negative (Negative); Urine Specific Gravity 1.014 (1.010-1.030); Urine Urobilinogen Negative (Negative)
--- NOTE | 2018-03-02 15:50 | RAD ---
INDICATION: Left lower quadrant pain COMPARISON: CT January 03, 2016 TECHNIQUE: Noncontrast axial source images were acquired from the level hemidiaphragms to the symphysis pubis. The patient reportedly has an allergy to both oral and intravenous contrast. Lung bases: The lung bases are clear. Liver: The liver is normal in size. Noncontrast imaging shows no evidence of a hepatic mass or ductal dilatation. Gallbladder: There are no calcified gallstones. There is no evidence of wall thickening or pericholecystic fluid.. Spleen: The spleen is normal in size. The noncontrast CT appearance is normal. Pancreas: Noncontrast imaging shows no pancreatic mass or ductal dilitation. Adrenal glands: No masses are identified. Kidneys/Bladder: There is no evidence of nephrolithiasis or CT evidence of hydronephrosis. Noncontrast imaging shows no evidence of a renal mass. The bladder is unremarkable.. Adenopathy: There is no evidence of intraperitoneal or retroperitoneal adenopathy. Evaluation is limited without oral contrast. Fluid collections: There are no free or localized fluid collections. Vessels: The aorta and iliac vessels are normal in caliber. There are no significant atherosclerotic changes. The IVC appears normal Pelvic organs: The uterus and adnexa appear normal GI tract: Evaluation of the bowel is limited without oral contrast. The stomach, small bowel, and lower GI tract appear grossly normal. There are no obstructive findings. There is appendectomy. Soft tissues: No soft tissue abnormalities of the extraperitoneal abdomen or pelvis are identified. Osseous structures: There are no acute osseous findings. IMPRESSION: Noncontrast imaging demonstrates no acute CT findings. There is no mass or inflammatory change.
[2018-03-02] MEDS ORDERED: Ondansetron INJ* 2 MG/ML VIAL IV PRN (17:52)
[2018-03-02] MEDS ORDERED: Ciprofloxacin 400MG IVPREMIX(* 400 MG/200 ML BAG IVPB SCH (18:00)
[2018-03-02] MEDS ORDERED: metroNIDAZOLE IV 500 MG/100ML* 500 MG/100 ML BAG IVPB SCH (18:00)
[2018-03-02] MEDS: HYDROmorphone INJ* 0.5 MG/0.5 ML SYRINGE IV SLOW PU PRN ×2 (18:50→22:35)
[2018-03-02] MEDS: NS 0.9% 1000 ML* 1,000 ML IV SCH (19:26)
[2018-03-02] MEDS: ceFOXitin 2 GM IVPREMIX* 2 GM/50 ML BAG IVPB SCH (19:26)
--- NOTE | 2018-03-02 20:29 | HP ---
CC: NICKI Vasquez * HISTORY AND PHYSICAL: DATE OF ADMISSION: 03/02/18 PRIMARY CARE PROVIDER: NICKI Vasquez ATTENDING PHYSICIAN WHILE IN HOSPITAL: Devin Casper MD * (report dictated by Rob Cummings NP). CHIEF COMPLAINT: Left lower quadrant abdominal pain. HISTORY OF PRESENT ILLNESS: Ms. Eugene is a 33-year-old female patient who carries a history of ovarian torsion, common variable immunodeficiency, history of recent questionable diagnosis of aseptic meningitis, migraines, anxiety, depression, endometriosis. She comes into the ED today. She says that for 2 weeks she has been having intermittent left lower quadrant abdominal pain. She thought maybe it was related to an ovarian cyst. She said 2 days ago she was having intercourse with her partner and the pain became quite severe. She says that she has not noticed any vaginal discharge. She had a low-grade temperature of 100 yesterday. She denies any vomiting or diarrhea. She did have some nausea with the discomfort, but the pain had just been getting worse and worse, had not been going away, was not any better or worse with taking food in. She denied having any chest pain or any shortness of breath. She said the pain was just not getting any better. She was at work today actually and decided to come into the emergency department today to be evaluated. PAST MEDICAL HISTORY: Significant for: 1. Ovarian torsion. 2. Endometriosis. 3. Common variable immunodeficiency. 4. History of migraines. 5. Recent diagnosis of aseptic meningitis. 6. Anxiety. 7. Depression. PAST SURGICAL HISTORY: 1. The patient has had a tubal ligation. 2. She has had 4 diagnostic laparoscopies. 3. She has had an appendectomy. 4. She has had left knee arthroscopy. 5. She has had right ovarian removal and fallopian tube removal. 6. She has had right breast surgery. HOME MEDICATIONS: Include: 1. Cuvitru 10 g infusion weekly. She has been off this for 3 weeks. 2. Wellbutrin 150 mg p.o. daily. 3. Sulfasalazine 500 mg p.o. b.i.d. 4. Benadryl 50 mg as needed prior to infusion. 5. Effexor 300 mg in the morning. 6. Topamax 100 mg at bedtime. 7. Ibuprofen 600 mg p.o. b.i.d. as needed. ALLERGIES TO MEDICATIONS: Include IV DYE and P.O. DYE. She has had respiratory distress related to this. FAMILY HISTORY: Mother had a history of hypertension as did her father. Mother had ANG. SOCIAL HISTORY: She does not smoke. Rarely drinks alcohol. Surrogate decision maker is her . REVIEW OF SYSTEMS: There was a temperature of 100 documented at home. She denies having any significant weight change. There is no double vision. There is no ear discharge. She denies having any rhinorrhea. There is no sore throat. There is no thyroid enlargement. She denied having any chest pain. There was no orthopnea. There was no nocturnal dyspnea. There was no abdominal pain. There was nausea, but there is no vomiting. There is no dysuria. There is no frequency. There was no seizure, no loss of consciousness. No pruritus and no skin ulcerations. Review of 14 systems was completed, all others negative. PHYSICAL EXAMINATION GENERAL: At this time, Ms. Eugene is a 33-year-old female patient, appears to be well nourished and well developed. She is sitting in the ED stretcher. She does not appear to be in any acute distress. VITAL SIGNS: Blood pressure 115/66; with a pulse of 108, the pulse is now 90; respirations were 18; O2 sat 95%; temperature 97.6. HEENT: Head: Atraumatic and normocephalic. Eyes: EOMs intact. Sclerae anicteric and not pale. Throat: Oral mucosa appears to be moist. No oropharyngeal erythema. NECK: Supple. LUNGS: Clear to auscultation bilaterally. No wheezes, rales, or rhonchi. HEART: Sounds S1, S2. She had a regular rate and rhythm. No murmurs, rubs, or gallops. ABDOMEN: Soft, flat. It was tender in the left lower quadrant. EXTREMITIES: Pulses were 2+ throughout. She had no peripheral edema. NEUROLOGICAL: She is awake, alert, oriented x3. She had no gross focal deficits. SKIN: Intact. DIAGNOSTIC STUDIES/LAB DATA: The labs today are revealing a WBC of 8.1, RBC of 4.65, hemoglobin of 14.4, hematocrit of 42, platelet count of 284,000. ESR was 22. INR 0.89, PTT of 32.5. Sodium 137, potassium 3.5, chloride 107, bicarb 21, BUN 6, creatinine of 0.71, glucose 89, lactic 0.5, calcium 9.4. Total bili 0.4, AST 17, ALT 30, alk phos 77. CK was 59, troponin was 0. CRP was 10.2. Albumin 4.3. Serum negative. Procalcitonin negative. Urine showed trace ketones. She had an abdominal and pelvis CT obtained today. Noncontrast imaging demonstrates no acute CT findings. There is no mass effect or inflammatory change. Transvaginal ultrasound showed endometrial echo measures up to 0.7 cm. The patient is status post right oophorectomy. Left ovary is normal. Chest x-ray obtained today showed no radiographic evidence for acute cardiopulmonary disease. Old medical records were reviewed. ASSESSMENT AND PLAN: Ms. Eugene is a 33-year-old female patient coming into the ED today with complaints of left lower quadrant abdominal pain, worsening over the last couple of days. We were asked to evaluate for admission. She will be admitted under observation status for: 1. Abdominal pain. Etiology is unclear. I did touch base with surgical service. At this point, they would recommend careful observation and waiting. I do have a call placed out to [employer] on-call and I do get concerned that in part this could be possibly pelvic inflammatory disease. She is immunocompromised, so she may not have the same immune reaction given she had a competent immune system. I think that she definitely deserves loredo culturing. I would request a vaginal swab. She denies any discharge, but the pelvic inflammatory disease certainly is in the differential. I did put her on antibiotics prophylactically for this and I am waiting for a call to touch base with [employer] [facility] to see if they recommend anything else. 2. Common variable immunodeficiency. Given concern for possible infection, we will hold off on her medications for this. 3. History of endometriosis. Continue meds as prescribed. 4. History of migraines. Continue meds as prescribed. 5. Anxiety and depression. Continue meds as prescribed. 6. DVT prophylaxis: I have ordered SCDs. 7. Fluids, electrolytes and nutrition: She is n.p.o. pending discussion with ASSISTANT [employer]OD SERVICE MANAGER. 8. Code status: Full code. TIME SPENT: Time spent on admission was 60 minutes, greater than half the time was spent [id number] with the patient obtaining my history and physical, other half of the time was spent going over the plan of care with the patient and implementing the plan of care. I discussed the plan of care with my attending, Dr. Casper, he is in agreement. ROB CUMMINGS NP [id number]/[facility] #: [id number] KISHA
[2018-03-02] MEDS ORDERED: Venlafaxine EXT RELEASE CAP* 75 MG PO SCH (21:00)
[2018-03-02] MEDS ORDERED: Topiramate TAB(*) 100 MG PO SCH (21:00)
[2018-03-02] MEDS ORDERED: BuPROPion XL* 150 MG TAB.XL PO SCH (21:00)
[2018-03-02] MEDS: sulfaSALAzine TAB* 500 MG PO SCH (21:03)
[2018-03-02] MEDS: DOXYcycline IV* 100 MG in NS 0.9% 250 ML* 250 ML IVPB SCH (21:04)
--- NOTE | 2018-03-02 22:02 | CONS ---
CC: Rob Cummings NP; Sánchez De Los Santos MD, [facility] * CONSULTATION NOTE: DATE OF CONSULT: 03/02/18 HISTORY OF PRESENT ILLNESS: The patient is a 33-year-old 1, para 1 with history of recurrent ovarian cysts. She has a history of right salpingo- oophorectomy in the past and a left-sided tubal ligation. She is currently taking the control pill in an effort to suppress ovarian function. Her laboratory apparatus glass grinder is Dr. Dubois. She was feeling well until approximately 2 weeks ago when she started to notice some vague left lower quadrant pain but 2 nights ago on Thursday night when she had intercourse, she had a sudden increase in the left lower quadrant pain, which continues today, Thursday. She presented to the emergency room. Pelvic ultrasound showed a normal uterus with a 7 mm endometrial lining. The left ovary was normal in size. Per the report, there is no evidence of torsion and there was not free fluid. Her white blood cell count was normal and she is afebrile with a normal blood pressure and pulse. PAST OB HISTORY: She has 1 full-term vaginal delivery in 2013. PHYSICAL EXAM: Her vital signs are stable. She is afebrile. She appears tired in bed, easily arousable. Her boyfriend is present in the room and remain per her request. On abdominal exam, her abdomen is soft. There is tenderness to deep palpation in the left lower quadrant. No rebound. On pelvic exam, the cervix is midline. There is no abnormal vaginal discharge. There is no odor. There is no vaginal bleeding. A gonorrhea chlamydia cervical culture was obtained and sent to the lab. There is no cervical motion tenderness. There is tenderness in the left lower quadrant without rebound. IMPRESSION: Left lower quadrant pain. Normal pelvic ultrasound. No evidence of torsion. Afebrile. Normal white blood cell count makes pelvic inflammatory disease less likely; however, I agree with treating with the IV antibiotics in case while we are awaiting culture results and observing the patient in house due to her CVID. I recommend that she continue the control pills in an effort to suppress ovarian function and to hopefully prevent recurrent ovarian cysts on the left, which she has experienced in the past. [id number]/[facility] #: [id number] [facility]
[2018-03-03] MEDS: ceFOXitin 2 GM IVPREMIX* 2 GM/50 ML BAG IVPB SCH ×3 (00:49→12:02)
[2018-03-03] MEDS: NS 0.9% 1000 ML* 1,000 ML IV SCH ×2 (03:22→12:02)
[2018-03-03] MEDS: HYDROmorphone INJ* 0.5 MG/0.5 ML SYRINGE IV SLOW PU PRN ×2 (03:22→07:47)
[2018-03-03] MEDS: DOXYcycline IV* 100 MG in NS 0.9% 250 ML* 250 ML IVPB SCH (06:37)
[2018-03-03 07:12] LABS: ABS Basophils 0 10^3/ul (0-0.2); ABS Eosinophils 0.1 10^3/ul (0-0.6); ABS Lymphocytes 1.2 10^3/ul (1.0-4.8); ABS Monocytes 0.3 10^3/ul (0-0.8); ABS Neutrophils 3.3 10^3/ul (1.5-7.7); ABS Nucleated RBC 0 10^3/ul; Eosinophil % 1.2 % (0-6); Hematocrit 38 % (35-47); Lymphocyte % 24.6 % (25-47); Mean Corpuscular HGB Conc 34 g/dl (31-36); Mean Corpuscular Hemoglobin 31 pg (27-31); Mean Corpuscular Volume 92 fL (80-97); Mean Platelet Volume 8.3 um3 (7.4-10.4); Nucleated Red Blood Cells % 0.1; Platelet Count 219 10^3/ul (150-450); Red Blood Count 4.14 10^6/ul (4.00-5.40); Red Cell Distribution Width 16 % (10.5-15); White Blood Count 4.8 10^3/ul (3.5-10.8)
[2018-03-03 07:22] LABS: EGFR Non-African American 84.9 (>60)
[2018-03-03 07:29] LABS: INR 0.92 (0.77-1.02)
[2018-03-03] MEDS: sulfaSALAzine TAB* 500 MG PO SCH (07:48)
[2018-03-03 11:49] VITALS: BP 99/69
[2018-03-03] MEDS ORDERED: oxyCODONE TAB* 5 MG TAB PO PRN (12:12)
[2018-03-03] MEDS ORDERED: cefTRIAXone VIAL(*) 250 MG VIAL IM ONE (13:37)
--- NOTE | 2018-03-04 16:44 | DS ---
CC: Neema Whitt; Dr. Dubois * DATE OF ADMISSION: 03/02/18. DATE OF DISCHARGE: 03/03/18. PRIMARY CARE PHYSICIAN: Neema Whitt. OUTPATIENT COMMUNITY DEVELOPMENT TECHNICIAN: Dr. Dubois. MY ATTENDING PHYSICIAN WHILE IN THE HOSPITAL: Dr. Golden Pierre.* (DICTATED BY TEVIN JARAMILLO) PRIMARY DISCHARGE DIAGNOSES: 1. Abdominal pain. 2. Possible pelvic inflammatory disease. 3. Endometriosis. SECONDARY DISCHARGE DIAGNOSES: 1. Common variable immunodeficiency. 2. History of migraines. 3. History of aseptic meningitis related to IVIG. 4. Anxiety and depression. STUDIES DONE WHILE IN THE HOSPITAL: 1. Chest x-ray from 03/02/18 read as no radiographic evidence for acute cardiopulmonary abnormality. 2. Transvaginal ultrasound read as endometrial echo measures up to 0.7 cm status post right oophorectomy, left ovary is normal. 3. Abdomen and pelvis CT on 01/31/18 read as noncontrast imaging demonstrates no acute CT findings. No mass or inflammatory change. MEDICATIONS AT DISCHARGE: 1. Bupropion 150 mg p.o. q.a.m. 2. Venlafaxine 300 mg p.o. q.a.m. 3. Cuvitru 10 g infusion weekly. 4. Ibuprofen 600 mg p.o. b.i.d. as needed. 5. Benadryl 50 mg p.o. with IVIG infusion. 6. Sulfasalazine 500 mg p.o. b.i.d. 7. Topiramate 100 mg p.o. at bedtime. 8. Oxycodone 5 mg p.o. q.4 hours as needed. 9. Doxycycline 100 mg p.o. b.i.d. 10. Ceftriaxone 250 mg IM. HOSPITAL COURSE: This is a brief summary of the patient's presentation. For more details, please see history and physical from Rob Cummings NP on 2017. In brief, the patient is a 33-year-old female with a past medical history significant for above who presented to the emergency department with 2 weeks of worsening intermittent left lower quadrant pain, which gradually got worse and was accompanied with severe dyspareunia. The patient had no vaginal discharge. The patient has no recent changes in her sexual behavior. The patient had low-grade temperature of 100, but the patient never gets fever due to her immunodeficiency. The patient denies chest pain, shortness of breath. The patient's pain has no association with eating food. The patient's pain was worse with movement. The patient stated that her pain was similar to previous endometriosis pain she has had, which usually resolved after several days. The patient did not take any pain medications at home including ibuprofen for this pain. The patient was seen in consultation by Dr. Sánchez De Los Santos, OB-FEDERAL DISTRICT CLERK, who believed that this could possibly be pelvic inflammatory disease. The patient had a PCR for gonorrhea and chlamydia sent. The patient had blood cultures drawn. The patient had had her IVIG held for 3 weeks before coming in the hospital due to aseptic meningitis and issues with migraines when taking IVIG. The patient recently had topiramate increased. The patient's pain improved overnight. The patient had no other vital sign abnormalities. No elevated temperatures. Two episodes of tachycardia. Her heart rate was 73 upon the time of discharge. The patient had no white blood cell count. The patient had slightly elevated inflammatory markers. The patient had negative procalcitonin and negative beta-HCG. She also had negative urinalysis. The patient was stable and discharged on 03/03/18 for outpatient treatment of PID, as well as following up with her primary OB-FEDERAL DISTRICT CLERK for concern for endometriosis and following up for continuation of IVIG infusion. PHYSICAL EXAMINATION ON THE DAY OF DISCHARGE: General: The patient is a 33- year- old female who appears her stated age and sitting comfortably in bed in no acute distress. Vital Signs: At the time of evaluation, temperature 97.8, pulse rate 72, respiratory rate 20, oxygen saturation 100% on room air, blood pressure 119/69. HEENT: Head, normocephalic, atraumatic. Sclerae anicteric. No conjunctival injection. Nasal mucosa moist. Oral mucosa moist. No pharyngeal erythema, discharge, or exudate. Neck: Supple, nontender, no lymphadenopathy. No carotid bruit auscultated. No JVD. Cardiac: Regular rate and rhythm. No clicks, murmurs, gallops, or rubs. Pulses 2+ in bilateral dorsalis pedis areas, posterior tibialis and radial areas. Respiratory: Clear to auscultation bilaterally. No wheezes, rales or rhonchi. Good air exchange bilaterally. Abdomen: Soft. Tender to palpation in the left lower quadrant without rebound, guarding. No hepatosplenomegaly. No abdominal bruits auscultated. No hepatojugular reflux. Genitourinary: No suprapubic or CVA tenderness. Skin: Clean, dry, intact. No rash. Neuro: Cranial nerves II through XII intact. No focal deficits. Alert and oriented x3. Psychiatric: Pleasant and cooperative. LABORATORY DATA ON THE DAY OF DISCHARGE: White blood cell count 4.8, hemoglobin 13.0, platelet count 219. INR 0.92. Sodium 137, potassium 3.8, chloride 112, carbon dioxide 22, anion gap 3, BUN 3, creatinine 0.79, glucose 86 , calcium 8.2. DISCHARGE PLAN: The patient will be discharged to home. The patient should followup as above with her outpatient OB-FEDERAL DISTRICT CLERK, Dr. Dubois for consideration of further evaluation for endometriosis. The patient is stable and will be treated out with meds, possible PID though the patient's presentation and negative workup are not entirely consistent with this. The patient will have 14 total days of doxycycline as well as ceftriaxone 250 mg IM which she received while she was in the hospital. The patient will continue on her increased topiramate, medications for anxiety and depression, will resume her IVIG on 03/05/18 as was previously scheduled. The patient is to return to the hospital for alarming symptoms such as high fevers, chest pain, shortness of breath, syncope, severely worsened abdominal pain, other alarming symptoms. The patient should have a regular unrestricted diet, engage in activities as tolerated. The patient had been advised that even though she will have opioid pain medications available that for the pathophysiology of endometriosis NSAID medications might be more beneficial. TIME SPENT: Approximately 60 minutes were spent on this discharge, 30 of which were spent [id number] with the patient obtaining history and physical and discussing treatment plan. TEVIN JARAMILLO [id number]/[facility] #: [id number] KISHA
== END 2018-03-03 15:30 | disposition home or self-care (01) ==
LOC: ED 11:36 → MED 17:58
PROVIDERS: ADMIT Hospitalist; ATTEND Hospitalist
DX: R50.9 Fever, unspecified (principal); R10.9 Unspecified abdominal pain; R11.0 Nausea; R10.32 Left lower quadrant pain; D89.9 Disorder involving the immune mechanism, unspecified; D83.9 Common variable immunodeficiency, unspecified; N80.9 Endometriosis, unspecified
CPT/HCPCS: 36415; 71045; 74176; 76830; 80048; 80053; 81003; 82150; 82550; 83605; 83690; 84145; 84484; 84702; 85025; 85610; 85652; 85730; 86140; 87040; 87491; 87591; 96365; 99283; A9270-GY; G0378; J0694; J0696; J1170; J2270; J2405; J3490

== ENCOUNTER 2018-05-27 10:09 | Emergency (ER) | payer BC ==
[2018-05-27] MEDS ORDERED: Fluorescein Sodium TOPICAL* 1 MG TEST STRIP OPHTHALMIC ONE (11:01)
[2018-05-27] MEDS ORDERED: Tetracaine 0.5% OPTH.SOL 4 ML* 1 DROP BTL LEFT EYE ONE (11:01)
[2018-05-27 11:38] VITALS: BP 126/74
--- NOTE | 2018-05-27 11:43 | ED ---
Throat Pain/Nasal Congestion - HPI Summary HPI Summary: Patient is a 33-year-old female who presents emergency department for left eye pain that started this morning. Patient states she accidentally fell asleep and her contacts while setting last night. She states when she woke up her left his contact was very dry and stuck to her eye. She states she took it out , fell back asleep and when she woke up her eye was swollen and very red. Pt. states contact was intact when she removed it. Symptoms are mild in severity. Blinking and rubbing I makes symptoms worse. Nothing makes symptoms better. Patient states she has had this happen to her before. - History of Current Complaint Chief Complaint: EDEyeProblem Time Seen by Provider: 05/27/18 10:52 Hx Obtained From: Patient - Allergies/Home Medications Allergies/Adverse Reactions: Allergies Allergy/AdvReac Type Severity Reaction Status Date / Time Iodinated Contrast- Oral and Allergy RESPIRATORY Verified 05/27/18 10:17 IV Dye DISTRESS AND RASH PMH/Surg Hx/FS Hx/Imm Hx Previously Healthy: Yes Endocrine/Hematology History: Reports: Hx Thyroid Disease - possible hashimotos , Other Endocrine/Hematological Disorders - CVID Denies: Hx Anticoagulant Therapy, Hx Diabetes Cardiovascular History: Denies: Hx Atrial Fibrillation, Hx Congenital Heart Disease, Hx Deep Vein Thrombosis, Hx Hypertension, Hx Pacemaker/ICD, Other Cardiovascular Problems/ Disorders Respiratory History: Denies: Hx Asthma, Hx Chronic Obstructive Pulmonary Disease (COPD), Other Respiratory Problems/Disorders GI History: Reports: Hx Gastroesophageal Reflux Disease, Hx Irritable Bowel, Other GI Disorders - colitis History: Denies: Hx Renal Disease Musculoskeletal History: Reports: Hx Arthritis, Hx Back Problems, Hx Tendonitis - LEFT KNEE Sensory History: Reports: Hx Contacts or Glasses - CONTACTS, INSTRUCTED TO WEAR GLASSES DAY OF SURGERY Denies: Hx Hearing Aid Opthamlomology History: Reports: Hx Contacts or Glasses - CONTACTS, INSTRUCTED TO WEAR GLASSES DAY OF SURGERY Neurological History: Reports: Hx Headaches, Hx Migraine - POST INFUSIONS- PRN IMITREX Denies: Hx Dementia, Hx Seizures, Other Neuro Impairments/Disorders Psychiatric History: Reports: Hx Anxiety - CONTROL WITH MEDS, Hx Depression - CONTROL WITH MEDS Denies: Hx Panic Disorder, Hx Substance Abuse - Cancer History Hx Chemotherapy: No Hx Radiation Therapy: No - Surgical History Surgery Procedure, Year, and Place: 2004 & 2005 [place] [facility] [place], [facility] [place]. 2010 DIAGNOSTIC LAPAROSCOPY FOR BILATERAL OVARIAN CYST, [facility] [place]. 2011 DIAGNOSTIC LAPAROSCOPY WITH RIGHT SALPINGECTOMY AND OOPHORECTOMY, [place]. TUBAL LIGATION -. [place] [facility] [place] Hx Anesthesia Reactions: Yes - needs alot of anesthesia - Immunization History Date of Tetanus Vaccine: unsure Date of Influenza Vaccine: Fall 2013 Infectious Disease History: No Infectious Disease History: Reports: Hx of Known/Suspected MRSA - surgical wounds Denies: Hx Clostridium Difficile, Hx Hepatitis, Hx Human Immunodeficiency Virus (HIV), Hx Shingles, Hx Tuberculosis, Hx Known/Suspected VRE, Hx Known/ Suspected VRSA, History Other Infectious Disease, Traveled Outside the [place] in Last 30 Days - Family History Known Family History: Positive: None, Hypertension, Other - sister with migraines - Social History Occupation: Employed Full-time Lives: With Family Alcohol Use: Weekly Alcohol Amount: 2-3 TIMES PER WEEK Substance Use Type: Reports: None Smoking Status (MU): Never Smoked Tobacco Review of Systems Positive: Erythema, Other - pain All Other Systems Reviewed And Are Negative: Yes Physical Exam Triage Information Reviewed: Yes Vital Signs On Initial Exam: Initial Vitals Temp Pulse Resp BP Pulse Ox 97.7 F 89 18 119/85 98 05/27/18 10:14 05/27/18 10:14 05/27/18 10:14 05/27/18 10:14 05/27/18 10:14 Vital Signs Reviewed: Yes Appearance: Positive: Well-Appearing - Pt. sitting on bed with lights dimmed. Wearing glasses Skin: Positive: Warm, Dry Head/Face: Positive: Normal Head/Face Inspection Eyes: Positive: Normal, EOMI - wthout pain, JHON, Other: - Right eye is unremarkable. Left conjunctiva is in injected with mild edema to upper eyelid. No surrounding periorbital erythema or edema. Extraocular muscles are intact without pain. No drainage. Neck: Positive: Supple Neurological: Positive: Normal, CN Intact II-III Psychiatric: Positive: Affect/Mood Appropriate Procedures - Procedure Summary Procedure Summary: Left thigh was anesthetized with tetracaine drops. Foreseen dye was placed. Eye was examined under Craig lamp. No uptake was noted. Eyelid was everted and no foreign body noted. Patient tolerated well. Visual acuity normal as documented. Diagnostics - Vital Signs Vital Signs Temp Pulse Resp BP Pulse Ox 05/27/18 10:14 97.7 F 89 18 119/85 98 - Laboratory Lab Statement: Any lab studies that have been ordered have been reviewed, and results considered in the medical decision making process. EENT Course/Dx - Course Course Of Treatment: Patient presenting with eye redness and pain after sleeping in her contacts. Eye exam is negative for obvious corneal abrasion or ulceration. Will treat with Cipro for conjunctivitis. Advised cool compresses time. Advised to throw away current contacts and do not wear contacts until symptoms resolve. To call her eye doctor for close follow-up appointment. To return to the ER for increased redness, pain, drainage, pain with eye movement, fevers or if concerned. Patient understands and agrees with plan. - Differential Diagnoses Differential Diagnoses: Abrasion, Allergic Rhinitis, Conjunctivitis, Corneal Abrasion, Foreign Body - Diagnoses Provider Diagnoses: Conjunctivitis Discharge - Sign-Out/Discharge Documenting (check all that apply): Patient Departure - Discharge Plan Condition: Good Disposition: HOME Prescriptions: Ciprofloxacin 0.3% OPTH.PATRICIO* [Cipro 0.3% Opth*] 2 drop LEFT EYE Q2H #1 btl Patient Education Materials: Conjunctivitis (ED) Forms: *Work Release Referrals: Neema Whitt NP [Primary Care Provider] - Additional Instructions: Schedule a follow up appointment with your eye doctor Eye drops as directed Apply cool compress Throw away current contacts and do not wear contacts until symptoms resolve Return to ER for increased pain, pain with moving eye, vision changes or if concerned - Billing Disposition and Condition Condition: GOOD Disposition: Home
== END 2018-05-27 11:37 | disposition home or self-care (01) ==
LOC: ED 10:09
DX: H10.32 Unspecified acute conjunctivitis, left eye (principal); F41.9 Anxiety disorder, unspecified; F32.9 Major depressive disorder, single episode, unspecified; Z91.041 Radiographic dye allergy status
CPT/HCPCS: 99282; A9270-GY

== ENCOUNTER 2018-06-25 15:46 | Emergency (ER) | payer BC ==
[2018-06-25 18:34] LABS: ABS Basophils 0 10^3/ul (0-0.2); ABS Eosinophils 0.1 10^3/ul (0-0.6); ABS Lymphocytes 1.8 10^3/ul (1.0-4.8); ABS Monocytes 0.4 10^3/ul (0-0.8); ABS Neutrophils 6.1 10^3/ul (1.5-7.7); ABS Nucleated RBC 0 10^3/ul; Eosinophil % 0.6 %; Hematocrit 43 % (35-47); Hemoglobin 14.7 g/dl (12.0-16.0); Lymphocyte % 21.2 %; Mean Corpuscular HGB Conc 34 g/dl (31-36); Mean Corpuscular Hemoglobin 32 pg (27-31); Mean Corpuscular Volume 93 fL (80-97); Mean Platelet Volume 8.6 fL (7.4-10.4); Nucleated Red Blood Cells % 0; Platelet Count 327 10^3/ul (150-450); Red Blood Count 4.67 10^6/ul (4.00-5.40); Red Cell Distribution Width 13 % (10.5-15); White Blood Count 8.4 10^3/ul (3.5-10.8)
[2018-06-25] MEDS ORDERED: Morphine VIAL* 4 MG/ML VIAL (1 ml vial) IV ONE (20:39)
[2018-06-25] MEDS ORDERED: NS 0.9% 1000 ML* 1,000 ML IV ONE (20:40)
[2018-06-25] MEDS ORDERED: Ondansetron INJ* 2 MG/ML VIAL IV ONE (20:40)
[2018-06-25] MEDS ORDERED: Ondansetron INJ* 2 MG/ML VIAL ONE (21:43)
[2018-06-25] MEDS ORDERED: Ketorolac INJ* 30 MG/ML 1 ML VIAL ONE (21:43)
[2018-06-25] MEDS ORDERED: Ketorolac INJ* 30 MG/ML 1 ML VIAL IV PUSH ONE (21:53)
--- NOTE | 2018-06-25 21:58 | ED ---
GI/ HPI - HPI Summary HPI Summary: 33 year male presents with severe left lower quadrant pain today. She denies any diarrhea. She admits to nausea vomiting. She is having low-grade fevers. No abnormal vaginal discharge. States she's been vaginal bleeding for a while and then yesterday she had ovulation pain. She has history of endometriosis. She has had her right ovary removed due to torsion. States this feels similar to torsion. She denies any flank pain.. No urinary symptoms. - History of Current Complaint Chief Complaint: EDAbdPain Time Seen by Provider: 06/25/18 20:28 Stated Complaint: SEVERE ABD PAIN Hx Last Menstrual Period: 02/12/18 Pain Intensity: 10 - Additional Pertinent History Primary Care Physician: MALACHI - Allergy/Home Medications Allergies/Adverse Reactions: Allergies Allergy/AdvReac Type Severity Reaction Status Date / Time Iodinated Contrast- Oral and Allergy RESPIRATORY Verified 06/25/18 16:12 IV Dye DISTRESS AND RASH PMH/Surg Hx/FS Hx/Imm Hx Endocrine/Hematology History: Reports: Hx Thyroid Disease - possible hashimotos , Other Endocrine/Hematological Disorders - CVID Denies: Hx Anticoagulant Therapy, Hx Diabetes Cardiovascular History: Denies: Hx Atrial Fibrillation, Hx Congenital Heart Disease, Hx Deep Vein Thrombosis, Hx Hypertension, Hx Pacemaker/ICD, Other Cardiovascular Problems/ Disorders Respiratory History: Denies: Hx Asthma, Hx Chronic Obstructive Pulmonary Disease (COPD), Other Respiratory Problems/Disorders GI History: Reports: Hx Gastroesophageal Reflux Disease, Hx Irritable Bowel, Other GI Disorders - colitis History: Denies: Hx Renal Disease Musculoskeletal History: Reports: Hx Arthritis, Hx Back Problems, Hx Tendonitis - LEFT KNEE Sensory History: Reports: Hx Contacts or Glasses - CONTACTS, INSTRUCTED TO WEAR GLASSES DAY OF SURGERY Denies: Hx Hearing Aid Opthamlomology History: Reports: Hx Contacts or Glasses - CONTACTS, INSTRUCTED TO WEAR GLASSES DAY OF SURGERY Neurological History: Reports: Hx Headaches, Hx Migraine - POST INFUSIONS- PRN IMITREX Denies: Hx Dementia, Hx Seizures, Other Neuro Impairments/Disorders Psychiatric History: Reports: Hx Anxiety - CONTROL WITH MEDS, Hx Depression - CONTROL WITH MEDS Denies: Hx Panic Disorder, Hx Substance Abuse - Cancer History Hx Chemotherapy: No Hx Radiation Therapy: No - Surgical History Surgery Procedure, Year, and Place: 2004 & [place] [facility] [place] [facility] [place]NOSTIC [place] BILATERAL [place]IAN [place] [facility] [place]. 2011 DIAGNOSTIC LAPAROSCOPY WITH RIGHT SALPINGECTOMY AND OOPHORECTOMY, [place]. TUBAL LIGATION -. right breast terminal duct bx, [facility] [place], 08/2017 Hx Anesthesia Reactions: Yes - needs alot of anesthesia - Immunization History Date of Tetanus Vaccine: unsure Date of Influenza Vaccine: Fall 2013 Infectious Disease History: No Infectious Disease History: Reports: Hx of Known/Suspected MRSA - surgical wounds Denies: Hx Clostridium Difficile, Hx Hepatitis, Hx Human Immunodeficiency Virus (HIV), Hx Shingles, Hx Tuberculosis, Hx Known/Suspected VRE, Hx Known/ Suspected VRSA, History Other Infectious Disease, Traveled Outside the [place] in Last 30 Days - Family History Known Family History: Positive: None, Hypertension, Other - sister with migraines - Social History Alcohol Use: Weekly Alcohol Amount: 2-3 TIMES PER WEEK Substance Use Type: Reports: None Smoking Status (MU): Never Smoked Tobacco Review of Systems Negative: Fever Negative: Chest Pain Negative: Shortness Of Breath Positive: Abdominal Pain, Vomiting, Nausea. Negative: Diarrhea All Other Systems Reviewed And Are Negative: Yes Physical Exam Triage Information Reviewed: Yes Vital Signs On Initial Exam: Initial Vitals Temp Pulse Resp BP Pulse Ox 98.3 F 104 16 142/108 99 06/25/18 16:08 06/25/18 16:08 06/25/18 16:08 06/25/18 16:08 06/25/18 16:08 Vital Signs Reviewed: Yes Appearance: Positive: Well-Appearing Skin: Positive: Warm, Dry Head/Face: Positive: Normal Head/Face Inspection Eyes: Positive: Normal, Conjunctiva Clear ENT: Positive: Pharynx normal Respiratory/Lung Sounds: Positive: Clear to Auscultation, Breath Sounds Present Cardiovascular: Positive: Normal, RRR Abdomen Description: Positive: Soft, Other: - tenderness LLQ Bowel Sounds: Positive: Present Pelvic Exam: Positive: External Exam Normal, Speculum Exam Normal, No Cerv. Motion Tender, Tender Adnexa - left Musculoskeletal: Positive: Normal Neurological: Positive: Normal Psychiatric: Positive: Normal Diagnostics - Vital Signs Vital Signs Temp Pulse Resp BP Pulse Ox 06/25/18 21:00 18 06/25/18 20:15 98.7 F 111 20 121/100 97 06/25/18 18:35 98.5 F 104 16 124/94 100 06/25/18 16:08 98.3 F 104 16 142/108 99 - Laboratory Lab Results: Lab Results 06/25/18 06/25/18 06/25/18 Range/Units 18:16 18:16 18:16 WBC 8.4 (3.5-10.8) 10^3/ul RBC 4.67 (4.00-5.40) 10^6/ul Hgb 14.7 (12.0-16.0) g/dl Hct 43 (35-47) % MCV 93 (80-97) fL MCH 32 H (27-31) pg MCHC 34 (31-36) g/dl RDW 13 (10.5-15) % Plt Count 327 (150-450) 10^3/ul MPV 8.6 (7.4-10.4) fL Neut % (Auto) 73.1 % Lymph % (Auto) 21.2 % [place] % (Auto) 4.6 % Eos % (Auto) 0.6 % Baso % (Auto) 0.5 % Absolute Neuts (auto) 6.1 (1.5-7.7) 10^3/ul Absolute Lymphs (auto) 1.8 (1.0-4.8) 10^3/ul Absolute Monos (auto) 0.4 (0-0.8) 10^3/ul Absolute Eos (auto) 0.1 (0-0.6) 10^3/ul Absolute Basos (auto) 0 (0-0.2) 10^3/ul Absolute Nucleated RBC 0 10^3/ul Nucleated RBC % 0 Sodium 138 (135-145) mmol/L Potassium 3.8 (3.5-5.0) mmol/L Chloride 106 (101-111) mmol/L Carbon Dioxide 27 (22-32) mmol/L Anion Gap 5 (2-11) mmol/L BUN 8 (6-24) mg/dL Creatinine 0.86 (0.51-0.95) mg/dL Est GFR ( Amer) 93.1 (>60) Est GFR (Non-Af Amer) 77.0 (>60) BUN/Creatinine Ratio 9.3 (8-20) Glucose 102 H (70-100) mg/dL Lactic Acid 0.9 (0.5-2.0) mmol/L Calcium 9.7 (8.6-10.3) mg/dL Total Bilirubin 0.30 (0.2-1.0) mg/dL AST 16 (13-39) U/L ALT 36 (7-52) U/L Alkaline Phosphatase 65 (34-104) U/L C-Reactive Protein 6.01 (<8.01) mg/L Total Protein 7.3 (6.4-8.9) g/dL Albumin 4.5 (3.2-5.2) g/dL Globulin 2.8 (2-4) g/dL Albumin/Globulin Ratio 1.6 (1-3) Lipase 87 H (11.0-82.0) U/L Beta HCG, Quant < 0.60 mIU/mL Result Diagrams: 06/25/18 18:16 06/25/18 18:16 Lab Statement: Any lab studies that have been ordered have been reviewed, and results considered in the medical decision making process. - CT No standard instances CT Interpretation Completed By: Radiologist Summary of CT Findings: IMPRESSION: No CT findings to correlate with patient's symptomatology. Specifically no. obstructing renal or ureteral calculi. - Ultrasound No standard instances Ultrasound Interpretation Completed By: Radiologist Summary of Ultrasound Findings: IMPRESSION: Status post right oophorectomy, otherwise unremarkable pelvic ultrasound. Re-Evaluation - Re-Evaluation First Eval Re-Evaluation Time: 21:58 Change: Improved Comment: pain still present GIGU Course/Dx - Course Course Of Treatment: 33 year male presents with severe left lower quadrant pain today. She denies any diarrhea. She admits to nausea vomiting. She is having low-grade fevers. No abnormal vaginal discharge. States she's been vaginal bleeding for a while and then yesterday she had ovulation pain. She has history of endometriosis. She has had her right ovary removed due to torsion. States this feels similar to torsion. She denies any flank pain.. No urinary symptoms. On exam extremely tender over left lower quadrant. ultrasound is normal. CT is normal. Labs within normal limits. Patient was not able to provide a urine. got pelvic cultures. We'll give pain medication. 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 Patient understands agrees with plan. - Diagnoses Differential Diagnoses - Female: Ovarian Cyst, Ovarian Torsion, STD, Urinary Tract Infection Provider Diagnoses: Abdominal pain Discharge - Sign-Out/Discharge Documenting (check all that apply): Patient Departure - Discharge Plan Condition: Good Disposition: HOME Patient Education Materials: Pelvic Pain in Women (ED) Referrals: Neema Whitt NP [Primary Care Provider] - Sánchez De Los Santos MD [Medical Doctor] - Additional Instructions: take tyenlol or ibuprofen every 6 hours apply heat Follow up with electric motor controls assembler Return to ED if develop any new or worsening symptoms - Billing Disposition and Condition Condition: GOOD Disposition: Home
[2018-06-25] MEDS ORDERED: oxyCODONE/Acetamin 5/325 MG* TAB PO ONE (23:05)
[2018-06-26 00:41] VITALS: BP 115/72
== END 2018-06-26 00:40 | disposition home or self-care (01) ==
LOC: ED 15:46
DX: R10.32 Left lower quadrant pain (principal)
CPT/HCPCS: 36415; 74176; 76856; 80053; 83605; 83690; 84702; 85025; 86140; 87480; 87491; 87510; 87591; 87661; 96361; 96372; 96374; 96375; 99283; A9270-GY; J1885; J2270; J2405

== ENCOUNTER 2018-10-26 12:38 | Emergency (ER) | payer BC ==
--- NOTE | 2018-10-26 14:03 | ED ---
GI/ HPI - HPI Summary HPI Summary: This pt is a 33 y/o female presenting to [facility] c/o lower abdominal pain since last night s/p hysterectomy on 10/06. Pt reports she woke up last night with extreme pain in her lower abd radiating down to her pelvic area. Additionally she passed a fist sized blood clot at 05:30 and another one at 11:30 today. Pt notes she has nausea when her pain is severe. Denies fever, chills. She states she had a hysterectomy due to endometriosis on 10/06/[address] Hensley at [facility]. Pt was placed on antibiotics after surgery for 1 week, believes it was Ciprofloxacin. Pt notes she came back to work last week but has not been doing heavy lifting. Pt called Dr. Hensley and she was advised to come to the ED. 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 Her last infusion was on 09/06. - History of Current Complaint Chief Complaint: EDVaginalBleeding Time Seen by Provider: 10/26/18 13:55 Stated Complaint: BLEEDING/PAIN AFTER HYSTERECTOMY PER PT Hx Obtained From: Patient Hx Last Menstrual Period: 02/12/18 Onset/Duration: Started Days Ago, Still Present Timing: Lasting Days Current Severity: Severe Pain Intensity: 7 Location of Pain: Other - lower abdomen Associated Signs and Symptoms: Positive: Nausea, Other: - POS: passing fist size clots. Negative: Vomiting, Fever, Chills, Chest Pain Aggravating Factor(s): Nothing Alleviating Factor(s): Nothing - Additional Pertinent History Primary Care Physician: [id number] - Allergy/Home Medications Allergies/Adverse Reactions: Allergies Allergy/AdvReac Type Severity Reaction Status Date / Time Iodinated Contrast- Oral and Allergy RESPIRATORY Verified 10/26/18 12:44 IV Dye DISTRESS AND RASH PMH/Surg Hx/FS Hx/Imm Hx Endocrine/Hematology History: Reports: Hx Thyroid Disease - possible hashimotos , Other Endocrine/Hematological Disorders - CVID Denies: Hx Anticoagulant Therapy, Hx Diabetes Cardiovascular History: Denies: Hx Atrial Fibrillation, Hx Congenital Heart Disease, Hx Deep Vein Thrombosis, Hx Hypertension, Hx Pacemaker/ICD, Other Cardiovascular Problems/ Disorders Respiratory History: Denies: Hx Asthma, Hx Chronic Obstructive Pulmonary Disease (COPD), Other Respiratory Problems/Disorders GI History: Reports: Hx Gastroesophageal Reflux Disease, Hx Irritable Bowel, Other GI Disorders - colitis History: Denies: Hx Renal Disease Musculoskeletal History: Reports: Hx Arthritis, Hx Back Problems, Hx Tendonitis - LEFT KNEE Sensory History: Reports: Hx Contacts or Glasses - CONTACTS, INSTRUCTED TO WEAR GLASSES DAY OF SURGERY Denies: Hx Hearing Aid Opthamlomology History: Reports: Hx Contacts or Glasses - CONTACTS, INSTRUCTED TO WEAR GLASSES DAY OF SURGERY Neurological History: Reports: Hx Headaches, Hx Migraine - POST INFUSIONS- PRN IMITREX Denies: Hx Dementia, Hx Seizures, Other Neuro Impairments/Disorders Psychiatric History: Reports: Hx Anxiety - CONTROL WITH MEDS, Hx Depression - CONTROL WITH MEDS Denies: Hx Panic Disorder, Hx Substance Abuse - Cancer History Hx Chemotherapy: No Hx Radiation Therapy: No - Surgical History Surgery Procedure, Year, and Place: 2004 & 2006 LEFT KNEE AR[place]ROSCOPY, [facility]. 2009 LAPAROSCOPY APPENDECTOMY, [facility]. 2009 DIAGNOSTIC LAPAROSCOPY FOR BILATERAL OVARIAN CYST, [facility] X 2. 2010 DIAGNOSTIC LAPAROSCOPY WITH RIGHT SALPINGECTOMY AND OOPHORECTOMY, [facility]. TUBAL LIGATION -. right breast terminal duct bx, [facility] [place], 08/2017. Hysterectomy 10/06/18 Hx Anesthesia Reactions: Yes - needs alot of anesthesia - Immunization History Date of Tetanus Vaccine: unsure Date of Influenza Vaccine: Fall 2013 Infectious Disease History: No Infectious Disease History: Reports: Hx of Known/Suspected MRSA - surgical wounds Denies: Hx Clostridium Difficile, Hx Hepatitis, Hx Human Immunodeficiency Virus (HIV), Hx Shingles, Hx Tuberculosis, Hx Known/Suspected VRE, Hx Known/ Suspected VRSA, History Other Infectious Disease, Traveled Outside the [place] in Last 30 Days - Family History Known Family History: Positive: None, Hypertension, Other - sister with migraines - Social History Alcohol Use: Weekly Alcohol Amount: 2-3 TIMES PER WEEK Substance Use Type: Reports: None Smoking Status (MU): Never Smoked Tobacco Review of Systems Negative: Fever, Chills Positive: Abdominal Pain, Nausea Genitourinary: Other - POS: passing fist size clots, pelvic pain Skin: Negative Neurological: Negative All Other Systems Reviewed And Are Negative: Yes Physical Exam - Summary Physical Exam Summary: VITAL SIGNS: Reviewed. GENERAL: Patient is a well-developed and nourished female who is in mild distress secondary to pain. HEAD AND FACE: Normocephalic and atraumatic. EYES: PERRLA, EOMI x 2, No injected conjunctiva. EARS: Hearing grossly intact. Ear canals and tympanic membranes are WNL. MOUTH: Oropharynx within normal limits. NECK: Supple, trachea is midline, no adenopathy, no JVD. CHEST: Symmetric, no tenderness at palpation LUNGS: Clear to auscultation bilaterally. No wheezing or crackles. CVS: RRR, S1 and S2 present, no murmurs or gallops appreciated. ABDOMEN: Soft, tenderness in the left lower quadrant and left pelvic area. No signs of distention. Positive bowel sounds. No rebound no guarding, and no masses palpated. No abdominal bruit or pulsations. EXTREMITIES: FROM in all major joints, no edema, no cyanosis or clubbing. NEURO: Alert and oriented x 3. No acute neurological deficits. Speech is normal. SKIN: Dry and warm Triage Information Reviewed: Yes Vital Signs On Initial Exam: Initial Vitals Temp Pulse Resp BP Pulse Ox 98.3 F 89 16 164/109 100 10/26/18 12:40 10/26/18 12:40 10/26/18 12:40 10/26/18 12:40 10/26/18 12:40 Vital Signs Reviewed: Yes Diagnostics - Vital Signs Vital Signs Temp Pulse Resp BP Pulse Ox 10/26/18 12:40 98.3 F 89 16 164/109 100 - Laboratory Result Diagrams: 10/26/18 18:27 10/26/18 14:19 Lab Statement: Any lab studies that have been ordered have been reviewed, and results considered in the medical decision making process. - CT Abdomen/Pelvis CT CT Interpretation Completed By: Radiologist Summary of CT Findings: IMPRESSION: #. Postsurgical change of hysterectomy. Only trace free pelvic fluid. #. Post appendectomy. Mild colonic diverticulosis without acute inflammatory change. #. Negative for obstructive uropathy. #. No acute abdominal pelvic pathologic process evident. Dr. Brantley has reviewed this report. - Ultrasound No standard instances Ultrasound Interpretation Completed By: Radiologist Summary of Ultrasound Findings: Transvaginal US IMPRESSION: Patient is status post hysterectomy and bilateral oophorectomy. Dr. Brantley has reviewed this report. Re-Evaluation - Re-Evaluation First Eval Re-Evaluation Time: 18:05 Comment: Dr. De Los Santos, [employer]ING [employer]PER[employer], at bedside. GIGU Course/Dx - Course Assessment/Plan: This patient is a 33-year-old female who presents to the emergency department with a chief complaining of left lower quadrantleft pelvic pain. The patient had a hysterectomy 3 weeks ago. Test results without any significant abnormality. Abdominal pelvic CT impression: Post surgical changes of hysterectomy. Only trace free fluid in the pelvis. Post appendectomy. A mild colonic diverticulosis without acute inflammatory changes. Negative for obstructive uropathy. No acute abdominal and pelvic pathological process evident. In the ED course the patient was already given IV fluids, Zofran for nausea and vomiting and morphine for the pain. However the patient continued to have pain therefore I decided to do a pelvic ultrasound. Pelvic ultrasound impression: Patient is status post hysterectomy and bilateral oophorectomy. The patient continues to have pain therefore the patient was given another dose of morphine and also Compazine for nausea and vomiting. At this point I requested Dr. De Los Santos from [employer] to assess the patient. Dr. De Los Santos assessed the patient and she only recommends to repeat H&H. If normal the patient can be discharged home with follow-up with her [employer] PATCHING MACHINE OPERATOR doctor. She reports that she offered the patient admission for pain control but the patient declined. Patient is hemodynamically stable, alert and oriented 3. - Diagnoses Provider Diagnoses: Abdominal pain, left lower quadrant - Physician Notifications Discussed Care Of Patient With: Sánchez De Los Santos Time Discussed With Above Provider: 16:50 Instructed by Provider To: Other - Discussed the case with Dr. De Los Santos, [employer] PATCHING MACHINE OPERATOR. Discharge - Sign-Out/Discharge Documenting (check all that apply): Patient Departure - Discharge home Patient Received Moderate/Deep Sedation with Procedure: No - Discharge Plan Condition: Stable Disposition: HOME Patient Education Materials: Abdominal Pain (ED) Referrals: Sánchez De Los Santos MD [Medical Doctor] - Neema Whitt NP [Primary Care Provider] - Additional Instructions: PLEASE FOLLOW UP WITH YOUR OBGYN or Dr. De Los Santos, [employer] PATCHING MACHINE OPERATOR. RETURN TO THE ED FOR ANY WORSENING OR NEW SYMPTOMS. - Billing Disposition and Condition Condition: STABLE Disposition: Home - Attestation Statements Document Initiated by Scribe: Yes Documenting Scribe: Mercedes Harrell Provider For Whom Melquiades is Documenting (Include Credential): Brennan Brantley MD Scribe Attestation: Mercedes Beavers, scribed for Brennan Brantley MD on 10/26/18 at 1849. Scribe Documentation Reviewed: Yes Provider Attestation: The documentation as recorded by the scribe, Mercedes Harrell accurately reflects the service I personally performed and the decisions made by me, Brennan Brantley MD Status of Scribe Document: Viewed
[2018-10-26] MEDS ORDERED: Morphine INJ* 10 MG/ML 1 ML CARPUJECT IV ONE (14:06)
[2018-10-26] MEDS ORDERED: NS 0.9% 1000 ML** 1,000 ML IV ONE (14:06)
[2018-10-26] MEDS ORDERED: Ondansetron ODT TAB* 4 MG PO ONE (14:06)
[2018-10-26] MEDS ORDERED: Morphine 4 MG/ML VIAL (1 ml) 4 MG/ML VIAL IV ONE (14:30)
[2018-10-26 14:32] LABS: ABS Basophils 0 10^3/ul (0-0.2); ABS Eosinophils 0.4 10^3/ul (0-0.6); ABS Lymphocytes 1.6 10^3/ul (1.0-4.8); ABS Monocytes 0.4 10^3/ul (0-0.8); ABS Neutrophils 4.6 10^3/ul (1.5-7.7); ABS Nucleated RBC 0 10^3/ul; Eosinophil % 5.7 %; Hematocrit 39 % (33-41); Hemoglobin 12.8 g/dL (12.0-16.0); Lymphocyte % 23.1 %; Mean Corpuscular HGB Conc 33 g/dL (31-36); Mean Corpuscular Hemoglobin 29 pg (27-31); Mean Corpuscular Volume 88 fL (80-97); Mean Platelet Volume 8.7 fL (7.4-10.4); Nucleated Red Blood Cells % 0.1; Platelet Count 304 10^3/uL (150-450); Red Blood Count 4.41 10^6 /uL (3.70-4.87); Red Cell Distribution Width 14 % (10.5-15)
[2018-10-26 14:45] LABS: Urine Appearance Clear; Urine Bilirubin Negative (Negative); Urine Blood Negative (Negative); Urine Color Straw; Urine Glucose Negative (Negative); Urine Ketones Negative (Negative); Urine Nitrite Negative (Negative); Urine Protein Negative (Negative); Urine Specific Gravity 1.004 (1.010-1.030); Urine Urobilinogen Negative (Negative)
[2018-10-26 15:02] LABS: Albumin 4.3 g/dL (3.2-5.2); Albumin/Globulin Ratio 1.5 (1-3); BUN/Creatinine Ratio 14.1 (8-20); C Reactive Protein 5.55 mg/L (<8.01); Calcium 9.2 mg/dL (8.6-10.3); EGFR African American 116.2 (>60); Globulin 2.8 g/dL (2-4); Potassium 3.8 mmol/L (3.5-5.0); Total Bilirubin 0.3 mg/dL (0.2-1.0); Total Protein 7.1 g/dL (6.4-8.9)
[2018-10-26] MEDS ORDERED: Morphine 4 MG/ML VIAL (1 ml) 4 MG/ML VIAL IV PRN (15:49)
[2018-10-26] MEDS ORDERED: PROCHLORPERAZINE INJ 5 MG/ML 2 ML VIAL IV ONE (18:00)
[2018-10-26 18:32] LABS: ABS Basophils 0 10^3/ul (0-0.2); ABS Eosinophils 0.4 10^3/ul (0-0.6); ABS Monocytes 0.3 10^3/ul (0-0.8); ABS Neutrophils 4.7 10^3/ul (1.5-7.7); ABS Nucleated RBC 0 10^3/ul; Eosinophil % 5.4 %; Hematocrit 37 % (33-41); Hemoglobin 12.4 g/dL (12.0-16.0); Lymphocyte % 26.8 %; Mean Corpuscular HGB Conc 34 g/dL (31-36); Mean Corpuscular Hemoglobin 30 pg (27-31); Mean Corpuscular Volume 88 fL (80-97); Mean Platelet Volume 8.3 fL (7.4-10.4); Nucleated Red Blood Cells % 0; Platelet Count 287 10^3/uL (150-450); Red Blood Count 4.21 10^6 /uL (3.70-4.87); Red Cell Distribution Width 14 % (10.5-15); White Blood Count 7.5 10^3/uL (3.5-10.8)
[2018-10-26 18:54] VITALS: BP 91/67
--- NOTE | 2018-10-26 20:43 | CONS ---
CC: [facility] CONSULTATION NOTE: DATE OF CONSULT: 10/26/18 - EMERGENCY DEPT HISTORY OF PRESENT ILLNESS: The patient is a 33-year-old 1, para 1-0-0- 1, status post robotic hysterectomy with Dr. Hensley at [place] 3 weeks ago on 06/14. The patient was feeling well postoperatively, has just recently returned to work, last night felt strong pelvic pressure and passed blood clot vaginally , came to work today. She works at [employer], felt pelvic pressure again, and passed a blood clot. She presented to the [employer] Emergency Room. She is complaining of pelvic pain. No fever, shakes, or chills. Vital signs are stable. Her most recent vital signs, her pulse is in the 80s, O2 sat 100% on room air, respirations 18. Most recent temperature 98.3. Initially, she presented with a high blood pressure. Her blood pressure at 2 p.m. was 130/87. On exam, she appears well, resting in the bed in the emergency room. She has received pain medication while in the emergency room. Her abdomen is soft. She has mild tenderness in the lower abdomen. No rebound. No guarding. No CVA tenderness. Her incision sites are clean, dry, and intact with no surrounding erythema. On speculum exam, the vaginal cuff is closed. There is no active bleeding. On pelvic exam, the uterus, the cervix, bilateral adnexa are surgically absent. She had mild tenderness to palpation. No masses were palpated. Her CBC, she has a normal white count of 7, her hemoglobin is 12.8, hematocrit 39, platelets 304. As far as imaging, she had a CAT scan at approximately 2 p.m. that showed postsurgical change of hysterectomy , trace free pelvic fluid, she is post appendectomy, mild colonic diverticulosis without acute inflammatory change. No obstructive uropathy. No abdominal or pelvic pathology process evident, and she had a transvaginal ultrasound approximately 4 p.m. This is status post hysterectomy and bilateral oophorectomy. No focal masses are identified. IMPRESSION AND PLAN: The patient is a 33-year-old 1, para 1-0-0-1, status post robotic hysterectomy by Dr. Hensley 3 weeks ago with pelvic pressure and passage of 2 clots last night and this morning. At this point, she has no active bleeding. Her abdominal and pelvic exams are benign. She has no elevated white blood cell count, no fever, and a normal hemoglobin/hematocrit from approximately 2 p.m. this afternoon. I recommended that they please repeat the blood count just to confirm that it is stable. The patient is amenable to going home tonight. She prefers to go home and rest versus being admitted for observation. I recommended that if she goes home that she rest the night, that she not work tomorrow, and that she calls Dr. Hensley' office tomorrow to be seen as soon as possible for evaluation. [id number]/[facility] #: [id number] KISHA
== END 2018-10-26 18:54 | disposition home or self-care (01) ==
LOC: ED 12:38
DX: R10.32 Left lower quadrant pain (principal); E07.9 Disorder of thyroid, unspecified; K21.9 Gastro-esophageal reflux disease without esophagitis; M19.90 Unspecified osteoarthritis, unspecified site; F41.9 Anxiety disorder, unspecified; F32.9 Major depressive disorder, single episode, unspecified; Z90.49 Acquired absence of other specified parts of digestive tract; Z91.041 Radiographic dye allergy status; Z86.14 Personal history of Methicillin resistant Staphylococcus aureus infection
CPT/HCPCS: 36415; 74176; 76830; 80053; 81003; 82150; 83605; 83690; 85025; 86140; 87040; 96361; 96374; 96375; 96376; 99283; A9270-GY; J0780; J2270

== ENCOUNTER 2019-02-10 14:19 | Emergency (ER) | payer BC ==
--- NOTE | 2019-02-10 15:43 | ED ---
GI/ HPI - HPI Summary HPI Summary: This pt is a 34 y/o female s/p hysterectomy presenting to [facility] c/o abd pain for the past 1 week and intermittent vaginal bleeding since 12:00 today. Pt reports she has hx of endometriosis and lost her right tube and ovary from torsion in 2013. She notes after that she got and felt better. Pt began to have recurrent pain from endometriosis and finally had a hysterectomy in September 2018 (removed uterus, cervix, and left tube and ovary). Her surgery was done by Dr. Hensley at [facility]. Pt reports her recovery was perfect and had 1 bout of vaginal bleeding 8 weeks postop after she had intercourse. She notes she has not had any issues or pain since then. Patient states for the past 1 week she has had pain in the suprapubic area of her abdomen and last night around 12:30 she had vaginal bleeding. She notes she has had intermittent bleeding today but her pain has been worse. Additionally reports urinary frequency. Currently notes she is just spotting. She is unsure if she is having hematuria. - History of Current Complaint Chief Complaint: EDUrogenitalProblems Time Seen by Provider: 02/10/19 15:35 Stated Complaint: BLEEDING POST HYSTERECTOMY PER PT Hx Obtained From: Patient Hx Last Menstrual Period: 02/12/18 Onset/Duration: Started Hours Ago - intermittent vaginal bleeding, Started Days Ago - abd pain for about 1 week, Still Present Timing: Lasting Hours - intermittent vaginal bleeding, Lasting Days - abd pain for about 1 week Current Severity: Severe Pain Intensity: 8 Location of Pain: Suprapubic Associated Signs and Symptoms: Positive: Abdominal Pain. Negative: Nausea, Vomiting, Fever, Chills Additional Signs & Symptoms: Positive: Vaginal Bleeding Aggravating Factor(s): Nothing Alleviating Factor(s): Nothing - Additional Pertinent History Primary Care Physician: [id number] - Allergy/Home Medications Allergies/Adverse Reactions: Allergies Allergy/AdvReac Type Severity Reaction Status Date / Time Iodinated Contrast- Oral and Allergy RESPIRATORY Verified 10/26/18 12:44 IV Dye DISTRESS AND RASH PMH/Surg Hx/FS Hx/Imm Hx Endocrine/Hematology History: Reports: Hx Thyroid Disease - possible hashimotos , Other Endocrine/Hematological Disorders - CVID Denies: Hx Anticoagulant Therapy, Hx Diabetes Cardiovascular History: Denies: Hx Atrial Fibrillation, Hx Congenital Heart Disease, Hx Deep Vein Thrombosis, Hx Hypertension, Hx Pacemaker/ICD, Other Cardiovascular Problems/ Disorders Respiratory History: Denies: Hx Asthma, Hx Chronic Obstructive Pulmonary Disease (COPD), Other Respiratory Problems/Disorders GI History: Reports: Hx Gastroesophageal Reflux Disease, Hx Irritable Bowel, Other GI Disorders - colitis History: Denies: Hx Renal Disease Musculoskeletal History: Reports: Hx Arthritis, Hx Back Problems, Hx Tendonitis - LEFT KNEE Sensory History: Reports: Hx Contacts or Glasses - CONTACTS, INSTRUCTED TO WEAR GLASSES DAY OF SURGERY Denies: Hx Hearing Aid Opthamlomology History: Reports: Hx Contacts or Glasses - CONTACTS, INSTRUCTED TO WEAR GLASSES DAY OF SURGERY Neurological History: Reports: Hx Headaches, Hx Migraine - POST INFUSIONS- PRN IMITREX Denies: Hx Dementia, Hx Seizures, Other Neuro Impairments/Disorders Psychiatric History: Reports: Hx Anxiety - CONTROL WITH MEDS, Hx Depression - CONTROL WITH MEDS Denies: Hx Panic Disorder, Hx Substance Abuse - Cancer History Hx Chemotherapy: No Hx Radiation Therapy: No - Surgical History Surgical History: Yes Surgery Procedure, Year, and Place: 2004 & 2006 LEFT KNEE ARTHROSCOPY, [facility] [place]. 2008 LAPAROSCOPY APPENDECTOMY, [facility] [place]. 2009 DIAGNOSTIC LAPAROSCOPY FOR BILATERAL OVARIAN CYST, [facility] [place] X 2. 2011 DIAGNOSTIC LAPAROSCOPY WITH RIGHT SALPINGECTOMY AND OOPHORECTOMY, [facility]. TUBAL LIGATION -. right breast terminal duct bx, [facility] [place], 08/2017. Hysterectomy 10/06/18 Hx Anesthesia Reactions: Yes - needs alot of anesthesia - Immunization History Date of Tetanus Vaccine: unsure Date of Influenza Vaccine: Fall 2013 Infectious Disease History: No Infectious Disease History: Reports: Hx of Known/Suspected MRSA - surgical wounds Denies: Hx Clostridium Difficile, Hx Hepatitis, Hx Human Immunodeficiency Virus (HIV), Hx Shingles, Hx Tuberculosis, Hx Known/Suspected VRE, Hx Known/ Suspected VRSA, History Other Infectious Disease, Traveled Outside the [place] in Last 30 Days - Family History Known Family History: Positive: Hypertension, Other - sister with migraines - Social History Alcohol Use: Weekly Alcohol Amount: 2-3 TIMES PER WEEK Substance Use Type: Reports: None Smoking Status (MU): Never Smoked Tobacco Review of Systems Negative: Fever Positive: Abdominal Pain Genitourinary: Other - POSITIVE: vaginal bleeding Positive: frequency All Other Systems Reviewed And Are Negative: Yes Physical Exam - Summary Physical Exam Summary: Appearance: Well-appearing, Well-nourished, lying in bed comfortably Skin: Warm, dry, no obvious rash Eyes: sclera anicteric, no conjunctival pallor ENT: mucous membranes moist, pharynx appears normal Neck: Supple, nontender Respiratory: Clear to auscultation, no signs of respiratory distress Cardiovascular: Normal S1, S2. No murmurs. Normal distal pulses in tibial and radial bilaterally. 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 Small area that appears to be granulation tissue, a little bit irritated without actively bleeding Musculoskeletal: Normal, Strength/ROM Intact Neurological: A&Ox3, awake and alert, mentation is normal, speech is fluent and appropriate Psychiatric: affect is normal, does not appear anxious or depressed Triage Information Reviewed: Yes Vital Signs On Initial Exam: Initial Vitals Temp Pulse Resp BP Pulse Ox 98.8 F 105 18 156/107 96 02/10/19 14:20 02/10/19 14:20 02/10/19 14:20 02/10/19 14:20 02/10/19 14:20 Vital Signs Reviewed: Yes Diagnostics - Vital Signs Vital Signs Temp Pulse Resp BP Pulse Ox 02/10/19 14:20 98.8 F 105 18 156/107 96 - Laboratory Result Diagrams: 02/10/19 15:56 02/10/19 15:56 Lab Statement: Any lab studies that have been ordered have been reviewed, and results considered in the medical decision making process. GIGU Course/Dx - Course Assessment/Plan: Pt is a 34 y/o female s/p hysterectomy presenting to [facility] c/o abd pain for the past 1 week and intermittent vaginal bleeding since 12:00 today. Pt reports she has hx of endometriosis and lost her right tube and ovary from torsion in 2013. Pt had a hysterectomy in September 2018 (removed uterus, cervix, and left tube and ovary). Her surgery was done by Dr. Hensley at [facility]. Currently notes she is spotting. Test results unremarkable except for urinalysis consistent with UTI. Pt will be discharged home with follow up from her PCP if needed. She was given prescriptions for Bactrim and Percocet. - Diagnoses Provider Diagnoses: Vaginal bleeding, UTI (urinary tract infection) Discharge - Sign-Out/Discharge Documenting (check all that apply): Patient Departure - Discharge home Patient Received Moderate/Deep Sedation with Procedure: No - Discharge Plan Condition: Good Disposition: HOME Prescriptions: oxyCODONE/Acetamin 5/325 MG* [Percocet 5/325 TAB*] 1 tab PO Q4H PRN #8 tab MDD 4 PRN Reason: Pain - Moderate To Severe Sulfamethox/Trimethoprim DS* [Bactrim DS 800/160 TAB*] 1 tab PO BID #14 tab Patient Education Materials: Urinary Tract Infection in Women (ED) Referrals: Neema Whitt NP [Primary Care Provider] - - Attestation Statements Document Initiated by Scribe: Yes Documenting Scribe: Mercedes Harrell Provider For Whom Scribe is Documenting (Include Credential): Martinez Neff MD Scribe Attestation: Mercedes Beavers, scribed for Martinez Neff MD on 02/10/19 at 1802. Status of Scribe Document: Ready
[2019-02-10] MEDS ORDERED: oxyCODONE/Acetamin 5/325 MG* TAB PO ONE (15:46)
[2019-02-10 16:10] LABS: ABS Basophils 0.1 10^3/ul (0-0.2); ABS Eosinophils 0.1 10^3/ul (0-0.6); ABS Lymphocytes 1.5 10^3/ul (1.0-4.8); ABS Monocytes 0.4 10^3/ul (0-0.8); ABS Neutrophils 4.9 10^3/ul (1.5-7.7); Eosinophil % 1.7 %; Hematocrit 39 % (35-47); Lymphocyte % 21.7 %; Mean Corpuscular HGB Conc 34 g/dL (31-36); Mean Corpuscular Hemoglobin 29 pg (27-31); Mean Corpuscular Volume 87 fL (80-97); Mean Platelet Volume 8.3 fL (7.4-10.4); Platelet Count 270 10^3/uL (150-450); Red Blood Count 4.44 10^6 /uL (3.70-4.87); Red Cell Distribution Width 14 % (10-15)
[2019-02-10 16:20] LABS: Albumin 4.1 g/dL (3.2-5.2); Albumin/Globulin Ratio 1.3 (1-3); BUN/Creatinine Ratio 17.5 (8-20); Calcium 9.5 mg/dL (8.6-10.3); EGFR African American 132.5 (>60); EGFR Non-African American 109.5 (>60); Globulin 3.1 g/dL (2-4); Total Bilirubin 0.3 mg/dL (0.2-1.0); Total Protein 7.2 g/dL (6.4-8.9)
[2019-02-10 17:09] LABS: Urine Appearance Clear; Urine Bacteria 1+ (Absent); Urine Bilirubin Negative (Negative); Urine Blood Negative (Negative); Urine Color Straw; Urine Glucose Negative (Negative); Urine Ketones Negative (Negative); Urine Nitrite Negative (Negative); Urine Protein Negative (Negative); Urine Red Blood Cell Trace(0-2/hpf) (Absent); Urine Specific Gravity 1.003 (1.010-1.030); Urine Squamous Epithelial Cell Present (Absent); Urine Urobilinogen Negative (Negative); Urine White Blood Cell 1+(6-10/hpf) (Absent)
[2019-02-10 18:13] VITALS: BP 135/83
== END 2019-02-10 18:13 | disposition home or self-care (01) ==
LOC: ED 14:19
DX: N93.9 Abnormal uterine and vaginal bleeding, unspecified (principal); N39.0 Urinary tract infection, site not specified; E07.9 Disorder of thyroid, unspecified; K21.9 Gastro-esophageal reflux disease without esophagitis; F41.9 Anxiety disorder, unspecified; F32.9 Major depressive disorder, single episode, unspecified; Z79.899 Other long term (current) drug therapy; Z90.710 Acquired absence of both cervix and uterus; Z91.041 Radiographic dye allergy status
CPT/HCPCS: 36415; 80053; 81003; 81015; 85025; 87086; 99282; A9270-GY

== ENCOUNTER 2019-06-24 16:05 | Emergency (ER) | payer BC ==
[2019-06-24] MEDS ORDERED: oxyCODONE/Acetamin 5/325 MG* TAB PO ONE ×2 (16:37→17:45)
[2019-06-24] MEDS ORDERED: Ibuprofen TAB* 800 MG PO ONE (16:37)
--- NOTE | 2019-06-24 16:37 | ED ---
Abdominal Pain/Female - HPI Summary HPI Summary: This patient is a 34 year old F presenting to ED with a chief complaint of pelvic pain since 06/10/19. Patient had a hysterectomy in September [address] [facility] for endometriosis. Patient had intercourse on 06/10/19 with some bleeding that lasted until 06/13/19. However, she is still having pelvic pain. Patient states her OBGYN (Dr. Hensley at [facility]) is concerned for a cuff tear. Patient describes the pain as a pressure, similar to how she used to feel when she had endometriosis and ovarian cysts. The patient rates the pain 8/ 10 in severity. Symptoms alleviated by applying heat. - History of Current Complaint Chief Complaint: EDOBProblems Stated Complaint: GENERAL ILLNESS Time Seen by Provider: 06/24/19 16:28 Hx Obtained From: Patient Hx Last Menstrual Period: 02/12/18 Onset/Duration: Gradual Onset, Lasting Weeks - Since 06/10/19, Still Present Timing: Constant Severity Initially: Severe Severity Currently: Severe Pain Intensity: 8 Pain Scale Used: 0-10 Numeric Location: Other - Pelvis Character: Other: - Pressure Aggravating Factor(s): Nothing Alleviating Factor(s): Other: - Heat Associated Signs and Symptoms: Positive: Vaginal Bleeding - Resolved 06/13/19 Allergies/Adverse Reactions: Allergies Allergy/AdvReac Type Severity Reaction Status Date / Time Iodinated Contrast Media Allergy RESPIRATORY Verified 06/24/19 16:11 [Iodinated Contrast- Oral DISTRESS and IV Dye] AND RASH Home Medications: Home Medications Estrogens, Conjugated [Premarin] 0.625 mg PO DAILY 06/24/19 [History Confirmed 06/24/19] PMH/Surg Hx/FS Hx/Imm Hx Endocrine/Hematology History: Reports: Hx Thyroid Disease - possible hashimotos , Other Endocrine/Hematological Disorders - CVID Denies: Hx Anticoagulant Therapy, Hx Diabetes Cardiovascular History: Denies: Hx Atrial Fibrillation, Hx Congenital Heart Disease, Hx Deep Vein Thrombosis, Hx Hypertension, Hx Pacemaker/ICD, Other Cardiovascular Problems/ Disorders Respiratory History: Denies: Hx Asthma, Hx Chronic Obstructive Pulmonary Disease (COPD), Other Respiratory Problems/Disorders GI History: Reports: Hx Gastroesophageal Reflux Disease, Hx Irritable Bowel, Other GI Disorders - colitis History: Denies: Hx Renal Disease Musculoskeletal History: Reports: Hx Arthritis, Hx Back Problems, Hx Tendonitis - LEFT KNEE Sensory History: Reports: Hx Contacts or Glasses - CONTACTS, INSTRUCTED TO WEAR GLASSES DAY OF SURGERY Denies: Hx Hearing Aid Opthamlomology History: Reports: Hx Contacts or Glasses - CONTACTS, INSTRUCTED TO WEAR GLASSES DAY OF SURGERY Neurological History: Reports: Hx Headaches, Hx Migraine - POST INFUSIONS- PRN IMITREX Denies: Hx Dementia, Hx Seizures, Other Neuro Impairments/Disorders Psychiatric History: Reports: Hx Anxiety - CONTROL WITH MEDS, Hx Depression - CONTROL WITH MEDS Denies: Hx Panic Disorder, Hx Substance Abuse - Cancer History Hx Chemotherapy: No Hx Radiation Therapy: No - Surgical History Surgery Procedure, Year, and Place: 2004 & 2006 [place] [facility] [place] [facility] [place]. 2010 DIAGNOSTIC LAPAROSCOPY FOR BILATERAL OVARIAN CYST, [facility] [place]. 2010 DIAGNOSTIC LAPAROSCOPY WITH RIGHT SALPINGECTOMY AND OOPHORECTOMY, [facility]. TUBAL LIGATION -. right breast terminal [place] [facility] [place]. Hysterectomy 10/06/18 Hx Anesthesia Reactions: Yes - needs alot of anesthesia - Immunization History Date of Tetanus Vaccine: unsure Date of Influenza Vaccine: Fall 2013 Infectious Disease History: No Infectious Disease History: Reports: Hx of Known/Suspected MRSA - surgical wounds Denies: Hx Clostridium Difficile, Hx Hepatitis, Hx Human Immunodeficiency Virus (HIV), Hx Shingles, Hx Tuberculosis, Hx Known/Suspected VRE, Hx Known/ Suspected VRSA, History Other Infectious Disease, Traveled Outside the [place] in Last 30 Days - Family History Known Family History: Positive: Hypertension, Other - sister with migraines - Social History Alcohol Use: Weekly Alcohol Amount: 2-3 TIMES PER WEEK Hx Substance Use: No Substance Use Type: Reports: None Hx Tobacco Use: No Smoking Status (MU): Never Smoked Tobacco Review of Systems Positive: Abdominal Pain - Pelvis Genitourinary: Other - Vaginal bleeding All Other Systems Reviewed And Are Negative: Yes Physical Exam - Summary Physical Exam Summary: Constitutional: Well-developed, Well-nourished, Alert. (-) Distressed Skin: Warm, Dry HENT: Normocephalic; Atraumatic Eyes: Conjunctiva normal Neck: Musculoskeletal ROM normal neck. (-) JVD, (-) Stridor, (-) Nuchal rigidity Cardio: Rhythm regular, rate normal, Heart sounds normal; Intact distal pulses; Radial pulses are 2+ and symmetric. (-) Murmur Pulmonary/Chest wall: Effort normal. (-) Respiratory distress, (-) Wheezes, (-) Rales Abd: LLQ tenderness :External Exam: normal labia, no masses, lacerations or abnormal lesions visualized Speculum Exam: s/p hysterectomy, scant amount of green discharge, no bleeding or lesions Musculoskeletal: (-) Edema Lymph: (-) Cervical adenopathy Neuro: Alert, Oriented x3 Psych: Mood and affect Normal Triage Information Reviewed: Yes Vital Signs On Initial Exam: Initial Vitals Temp Pulse Resp BP Pulse Ox 97.8 F 95 19 153/105 99 06/24/19 16:07 06/24/19 16:07 06/24/19 16:07 06/24/19 16:07 06/24/19 16:07 Vital Signs Reviewed: Yes Procedures - Sedation Patient Received Moderate/Deep Sedation with Procedure: No Diagnostics - Vital Signs Vital Signs Temp Pulse Resp BP Pulse Ox 06/24/19 16:07 97.8 F 95 19 153/105 99 - Laboratory Result Diagrams: 06/24/19 17:54 06/24/19 17:54 Lab Statement: Any lab studies that have been ordered have been reviewed, and results considered in the medical decision making process. - CT A/P CT Interpretation Completed By: Radiologist Summary of CT Findings: No evidence of an acute process in the abdomen or pelvis to explain left lower quadrant pain. Status post hysterectomy. Dr. Mclaughlin has reviewed this radiology report. Re-Evaluation - Re-Evaluation First Eval Re-Evaluation Time: 21:50 Comment: Discussed results with patient including normal labs, neg CT. Patient will be discharged home with dx of LLQ pain. Patient understands and agrees with this plan. Abdominal Pain Fem Course/Dx - Course Course Of Treatment: 34 y/o F w hx hysterectomy p/w LLQ pain. Exam relatively unremarkable today, no rigidity or suggestions of acute surgical abd. Pt with negative Guerrero's on exam.Will obtain cbc to assess for underlying infection. No ovaries or fallopian tubes. Pelvic w scant green discharge, sent GC/Chl and trich. Check CT a/p non con 2/2 allergy - Diagnoses Provider Diagnoses: LLQ pain - Provider Notifications Discussed Care Of Patient With: Sreedhar Hensley Time Discussed With Above Provider: 17:43 Instructed by Provider To: Other - Discussed patient case with Dr. Hensley, the patient's OBGYN at [place], who stated that he does not think the patient's symptoms are due to a gynecologic issue and agrees with checking labs and imaging. Discharge ED - Sign-Out/Discharge Documenting (check all that apply): Patient Departure - Discharge - Discharge Plan Condition: Stable Disposition: HOME Prescriptions: Ketorolac TAB * [Toradol TAB *] 10 mg PO Q6H #24 tab Patient Education Materials: Pelvic Pain in Women (ED) Referrals: Neema Whitt NP [Primary Care Provider] - Additional Instructions: You were seen in the emergency department for left lower quadrant pain. Your labs and CT scan did not show cause for this pain. We discussed this with your surgeon who recommended labs and imaging a follow up outpatient. You can take toradol for pain, do not take it with motrin/ibuprofen. If any studies were not completed at the time of discharge you will be called with the relevant results. Please follow up with your primary care doctor in next 2-3 days and return to emergency department for worsening pain, fevers, or concerning symptoms. It was a pleasure taking care of you today. - Billing Disposition and Condition Condition: STABLE Disposition: Home - Attestation Statements Document Initiated by Melquiades: Yes Documenting Scribe: Jose Carlos Bowman Provider For Whom Melquiades is Documenting (Include Credential): Gokul Mclaughlin MD Scribe Attestation: I, Jose Carlos Bowman, scribed for Gokul Mclaughlin MD on 06/24/19 at 2222. Scribe Documentation Reviewed: Yes Provider Attestation: The documentation as recorded by the Jose Carlos mak accurately reflects the service I personally performed and the decisions made by me, Gokul Mclaughlin MD Status of Scribe Document: Viewed
[2019-06-24 18:10] LABS: ABS Lymphocytes 1.3 10^3/ul (1.0-4.8); ABS Monocytes 0.3 10^3/ul (0-0.8); Eosinophil % 0.7 %; Hematocrit 41 % (35-47); Lymphocyte % 17.1 %; Mean Corpuscular HGB Conc 35 g/dL (31-36); Mean Corpuscular Hemoglobin 30 pg (27-31); Mean Corpuscular Volume 87 fL (80-97); Mean Platelet Volume 8.2 fL (7.4-10.4); Nucleated Red Blood Cells % 0.1; Platelet Count 281 10^3/uL (150-450); Red Blood Count 4.69 10^6 /uL (3.70-4.87); Red Cell Distribution Width 14 % (10-15); White Blood Count 7.7 10^3/uL (3.5-10.8)
[2019-06-24 18:21] LABS: Potassium 3.6 mmol/L (3.5-5.0)
[2019-06-24 18:22] LABS: Albumin 4.4 g/dL (3.2-5.2); Albumin/Globulin Ratio 1.4 (1-3); BUN/Creatinine Ratio 10.5 (8-20); Calcium 9.5 mg/dL (8.6-10.3); EGFR African American 106.7 (>60); EGFR Non-African American 88.2 (>60); Globulin 3.2 g/dL (2-4); Total Bilirubin 0.3 mg/dL (0.2-1.0); Total Protein 7.6 g/dL (6.4-8.9)
[2019-06-24] MEDS ORDERED: Ondansetron ODT TAB* 4 MG PO ONE ×2 (19:30→21:32)
[2019-06-24] MEDS ORDERED: Ibuprofen TAB* 600 MG PO ONE (21:32)
[2019-06-24] MEDS ORDERED: Ketorolac TAB * 10 MG TAB PO ONE (21:53)
[2019-06-24 22:07] VITALS: BP 150/102
[2019-06-27 13:40] LABS: Chlamydia trachomatis NAA Negative (Negative); Neisseria gonorrhoeae (GC) NAA Negative (Negative)
== END 2019-06-24 22:05 | disposition home or self-care (01) ==
LOC: ED 16:05
DX: R10.32 Left lower quadrant pain (principal); E07.9 Disorder of thyroid, unspecified; K21.9 Gastro-esophageal reflux disease without esophagitis; F41.9 Anxiety disorder, unspecified; F32.9 Major depressive disorder, single episode, unspecified; Z90.710 Acquired absence of both cervix and uterus; Z90.89 Acquired absence of other organs; Z90.721 Acquired absence of ovaries, unilateral; Z79.890 Hormone replacement therapy; Z79.899 Other long term (current) drug therapy; Z91.041 Radiographic dye allergy status
CPT/HCPCS: 36415; 74176; 80053; 85025; 87480; 87491; 87510; 87591; 87661; 99283; A9270-GY

== ENCOUNTER 2020-07-24 05:53 | Observation (INO) ==
[~2020-07-24 05:53] MED LIST changes: +Buffered Lidocaine 1% SYRIN 1 ml INTRADERM ONE; +Famotidine IV 10 MG/ML 2 ml VIAL (20 mg) IV ONE; +Lactated Ringers 1000 ml BAG 1,000 ML IV SCH; -Lidocaine 2% PF * 5 ML VIAL ONE; -Midazolam* 1 MG/ML 5 ML VIAL (5 MG) ONE; -Propofol* 10 MG/ML 20 ML BTL IV PUSH ONE; -Rocuronium* 10 MG/ML VIAL ONE; -fentaNYL* 50 MCG/ML 2 ML VIAL (100 MCG VIAL) ONE
[2020-07-24] MEDS ORDERED: Famotidine IV 10 MG/ML 2 ml VIAL (20 mg) ONE (06:29)
[2020-07-24] MEDS ORDERED: Buffered Lidocaine 1% SYRIN 1 ml INTRADERM ONE (06:29)
[2020-07-24] MEDS ORDERED: Thrombin 5,000 UNITS 1 APPLIC KIT - topical use - TOPICAL ONE (07:08)
[2020-07-24] MEDS ORDERED: Bacitracin INJECTION 50,000 UNITS ONE (07:08)
[2020-07-24] MEDS ORDERED: Lidocaine 1% w EPI 1:100,000 MDV 20 ML VIAL ONE (07:09)
[2020-07-24] MEDS ORDERED: fentaNYL 100 mcg/2 ml 50 MCG/ML VIAL ONE (07:17)
[2020-07-24] MEDS ORDERED: Midazolam 5 mg/5 ml VIAL 1 mg/ml 5 ml VIAL (5 mg) ONE ×2 (07:17→07:37)
[2020-07-24] MEDS ORDERED: ceFAZolin 2 GM PREMIX 2 GM/50 ML BAG ONE (07:18)
[2020-07-24] MEDS ORDERED: Gelfoam Sponge SIZE 100 SPONGE ONE (07:18)
[2020-07-24] MEDS ORDERED: Rocuronium 50 mg VIAL 10 mg/ml 5 ml VIAL (50 mg) ONE (07:56)
[2020-07-24] MEDS ORDERED: Dexamethasone IV 4 MG/ML VIAL 1 ml VIAL ONE (07:58)
[2020-07-24] MEDS ORDERED: Ondansetron 4 mg VIAL 2 MG/ML 2 ml VIAL ONE (07:58)
[2020-07-24] MEDS ORDERED: Propofol 10 MG/ML 20 ML BTL ONE (07:58)
[2020-07-24] MEDS ORDERED: Lidocaine 2% PF 5 ML VIAL ONE (07:58)
[2020-07-24] MEDS ORDERED: Acetaminophen IV 1 GM/100ML 100 ML ONE (08:19)
[2020-07-24] MEDS ORDERED: HYDROmorphone 1 MG/1 ML SYRINGE ONE ×2 (08:21→09:38)
[2020-07-24] MEDS ORDERED: Ondansetron 4 mg VIAL 2 MG/ML 2 ml VIAL IV PRN ×2 (08:35→09:23)
[2020-07-24] MEDS ORDERED: Naloxone 0.4 mg VIAL 0.4 mg/ml 1 ml VIAL IV PRN (08:35)
[2020-07-24] MEDS ORDERED: DiMENhydriNATE IV 50 mg/ml 1 ml VIAL IV PUSH PRN (08:35)
[2020-07-24] MEDS ORDERED: Calcium Carb (TUMS) 500 mg CHEW TAB PO PRN (09:31)
[2020-07-24] MEDS: HYDROmorphone 1 MG/1 ML SYRINGE IV PRN ×2 (09:40→09:58)
[2020-07-24] MEDS: HYDROcodone/ACETAMIN 5/325 mg TAB PO PRN ×3 (12:09→23:04)
[2020-07-24] MEDS ORDERED: Conjugated Estrogens 0.625 TAB PO SCH (18:00)
[2020-07-25] MEDS: HYDROcodone/ACETAMIN 5/325 mg TAB PO PRN ×2 (03:07→07:52)
[2020-07-25 07:52] VITALS: BP 110/68
== END 2020-07-25 10:35 | disposition home or self-care (01) ==
LOC: OR 05:53 → SSU 05:53
PROVIDERS: ADMIT Neurological Surgery; ATTEND Neurological Surgery

== ENCOUNTER 2021-08-02 06:56 | Observation (INO) ==
[2021-08-02] MEDS ORDERED: ACETAMINOPHEN 1 GM/100 ML IV ONE (06:57)
[2021-08-02] MEDS ORDERED: Famotidine IV 10 MG/ML 2 ml VIAL (20 mg) ONE (07:17)
[2021-08-02] MEDS ORDERED: Buffered Lidocaine 1% SYRIN 1 ml INTRADERM ONE (07:17)
[2021-08-02] MEDS ORDERED: Gelfoam 12-7 ADSORBABL SPONGE ONE (07:59)
[2021-08-02] MEDS ORDERED: Thrombin 5,000 UNITS 1 APPLIC KIT - topical use - TOPICAL ONE (07:59)
[2021-08-02] MEDS ORDERED: ceFAZolin VIAL VIAL ONE (07:59)
[2021-08-02] MEDS ORDERED: Gelfoam Sponge SIZE 100 SPONGE ONE (08:00)
[2021-08-02] MEDS ORDERED: ceFAZolin 2 GM in NS PREMIX 2 GM/100 ML BAG IVPB ONE (08:09)
[2021-08-02] MEDS ORDERED: Midazolam 10 mg/10 ml VIAL 1 mg/ml 10 ml VIAL (10 mg) ONE (08:15)
[2021-08-02] MEDS ORDERED: Propofol 10 MG/ML 20 ML BTL ONE (08:16)
[2021-08-02] MEDS ORDERED: Lidocaine 2% PF 5 ML VIAL ONE (08:16)
[2021-08-02] MEDS ORDERED: Ondansetron 4 mg VIAL 2 MG/ML 2 ml VIAL ONE (08:16)
[2021-08-02] MEDS ORDERED: fentaNYL 100 mcg/2 ml 50 MCG/ML VIAL ONE ×4 (08:16→10:57)
[2021-08-02] MEDS ORDERED: Dexamethasone IV 4 MG/ML VIAL 1 ml VIAL ONE (08:16)
[2021-08-02] MEDS ORDERED: Rocuronium 50 mg VIAL 10 mg/ml 5 ml VIAL (50 mg) ONE (08:18)
[2021-08-02] MEDS ORDERED: Phenylephrine 40 mcg/mL 10mL (400mcg) SYRINGE ONE (08:52)
[2021-08-02] MEDS ORDERED: Lidocaine 1.5% EPI 1:200,000 30 ML SDV ONE (08:56)
[2021-08-02] MEDS ORDERED: HYDROmorphone 0.5 MG/0.5 ML SYRINGE ONE ×2 (09:00→10:23)
[2021-08-02] MEDS ORDERED: Naloxone 0.4 mg VIAL 0.4 mg/ml 1 ml VIAL IV PRN (09:08)
[2021-08-02] MEDS ORDERED: DiMENhydriNATE IV 50 mg/ml 1 ml VIAL IV PUSH PRN (09:08)
[2021-08-02] MEDS ORDERED: Ondansetron 4 mg VIAL 2 MG/ML 2 ml VIAL IV PRN (09:08)
[2021-08-02] MEDS ORDERED: Bupivacaine 0.5% SDV PF 30ML VIAL ONE (09:08)
[2021-08-02] MEDS ORDERED: Albuterol HFA INHALER 8 gm MDI INH PRN (10:33)
[2021-08-02] MEDS: fentaNYL 100 mcg/2 ml 50 MCG/ML VIAL IV PRN ×3 (10:36→10:59)
[2021-08-02] MEDS ORDERED: HYDROmorphone 1 MG/1 ML SYRINGE ONE (10:46)
[2021-08-02] MEDS: HYDROmorphone 1 MG/1 ML SYRINGE IV PRN ×2 (10:50→11:45)
[2021-08-02] MEDS ORDERED: Lactated Ringers 1000 ml BAG 1,000 ML IV SCH (11:00)
[2021-08-02] MEDS ORDERED: DULoxetine DR 30 mg CAP PO SCH (21:00)
[2021-08-03 08:10] VITALS: BP 120/55
[2021-08-03] MEDS ORDERED: Conjugated Estrogens 0.625 TAB PO SCH (09:00)
== END 2021-08-03 11:10 | disposition home or self-care (01) ==
LOC: OR 06:56 → SSU 06:56
PROVIDERS: ADMIT Neurological Surgery; ATTEND Neurological Surgery